=== PATIENT | female | born 1980 | race Caucasian/White ===

== ENCOUNTER 2024-12-24 11:48 | Outpatient (REF) | payer MEDICAID, SELFPAY ==
--- OUTSIDE RECORDS SUMMARY | 2024-12-24 19:46 | XMS_ITS | Encounter Summary ---
Author Organization [employer] [facility] Address [address] [facility] 7t [place] [address] Care Team Providers Care Hospitality Team Member Name Role Phone Unavailable Primary Care Provider Unavailabl e Reason for Visit * Reason Onset Date Comments NEW PATIENT APPT REQUEST 12/18/2024 Encounter Details Date Type Department Care Team (Late st Contact Info) Description 12/18/2024 Telephone [facility] [address] [place] [address] Name, MD Spencer [address] [place] [address] NEW PATIENT APPT REQUEST Social History Tobacco Use Types Packs/Day Years Used Date Smoking Tobacco: Never Passive Smoke Exposure: Never Smokeless Tobacco: Never Alcohol Use Standard Drinks/Week Comments Never 0 (1 standard drink = 0.6 oz pur e alcohol) Comments Unknown Sex and Gender Information Value Date Recorded Sex Assigned at Female 10/30/2024 10:58 AM EST Legal Sex Female 3:06 PM EST Gender Identity Female 10/30/2024 10:58 AM EST Sexual Orientation Straight 10/30/2024 10 :58 AM EST documented as of this encounter Miscellaneous Notes * Telephone Encounter - Myriam Price RN - 12/18/2024 9:35 AM EST New patient appt needed per Dr Name. See OV note 12/15/24. documented in this encounter Plan of Treatment Upcoming Encounters Date Type Department Care Team (Late st Contact Info) Description 01/05/2025 10:00 AM EDT Office Visit [facility] [address] [place] [address] Tavia Mullins DDS [address] [place] [address] documented as of this encounter Visit Diagnoses Not on filedocumented in this encounter
--- OUTSIDE RECORDS SUMMARY | 2024-12-24 19:46 | XMS_ITS | Encounter Summary ---
Author Organization [employer] [facility] Address [address] [facility] 7t [place] [address] Care Team Providers Care Rivet Sorter Name Role Phone Unavailable Primary Care Provider Unavailabl e Reason for Visit * Reason Comments Post and core and crown prep on tooth#7 Encounter Details Date Type Department Care Team (Late st Contact Info) Description 12/21/2024 9:00 AM EST Office Visit [facility] [address] [place] [address] Tavia Mullins DDS [address] [place] [address] Fractured endodontic instrument in root canal (Primary Dx); Full coverage crown needed for tooth at risk for fracture Social History Tobacco Use Types Packs/Day Years [...] AM EST documented as of this encounter Last Filed Vital Signs Vital Sign Reading Time Taken Comments Blood Pressure 110/78 12/21/2024 8:58 AM EST Pulse - - Temperature - - Respiratory Rate - - Oxygen Saturation - - Inhaled Oxygen Concentration - - Weight - - Height - - Body Mass Index - - documented in this encounter Progress Notes * Tavia Mullins DDS - 12/21/2024 9:00 AM EST Patient ID: Hailey Mayer is a 44 y.o. female. Time Out: Timeout Date: 12/21/24, Timeout Time: 0859 (Time out for post and core and crown prep on tooth #7) Location: [facility] Tooth: #7 Procedure: [place] and Post & Core Verified the above with patient, assistant front end manager, and provider. Confirmed via patient's chart, intraorally and by radiographs. Steamer Gum Candy: not applicable Chief Complaint Patient presents with Post and core and crown prep on tooth#7 Medical Hx: Vitals: Blood pressure 110/78. Medications, Med Hx reviewed with patient and updated in chart. Consent Obtained: The risks, benefits, indications, potential complications, and alternatives were explained to the patient and informed consent was obtained with good understanding. Treatment Provided: Dental procedures in this visit D2954 - PREFABRICATED POST AND CORE IN ADDITION TO CROWN 7 (Completed) Service provider: Tavia Mullins DDS Billing provider: Tavia Mullins DDS D2700.1 - CROWN PREP (Completed) Service provider: Tavia Mullins DDS Billing provider: Tavia Mullins DDS [id number] - INTRAORAL - PERIAPICAL FIRST RADIOGRAPHIC IMAGE (Completed) Service provider: Tavia Mullins DDS Billing provider: Tavia Mullins DDS [id number] - CASE PRESENTATION, DETAILED AND EXTENSIVE TREATMENT PLANNING (Completed) Service provider: Tavia Mullins DDS Billing provider: Tavia Mullins DDS Topical: 20% Benzocaine Anesthesia: 2% Lidocaine (Xylocaine) w/ 1:100,000 epinephrine Number of Cartridges: 1 Injection Type: Buccal infiltration, Palatal infiltration, Anterior superior alveolar nerve block, and Nasopalatine nerve block Confirmed profound anesthesia. Isolation: high speed suction and cotton rolls Temporary sabianist removed. Canal length: mm Ambrosio-percha removed using High Austin Peeso reamer used size: 0-yellow Post type used: Flexipost Post size used: 0-yellow PA taken to confirm post size and length. Irrigation: Chlorhexidine Post space dried using paper points. Etch: 37% Phosphoric Acid Etch Boss: I-Boss Post cemented with: Relyx Unicem Core: Filtek [place] Flowable Composite PA taken to confirm fit. Occlusion checked with articulating paper and adjustments made as needed. Core smoothed and polished. Stay[place] Preparation: Prepared tooth for: Ceramic crown Gingival Retraction: Traxodent and Retraction cap Final Impression taken with: Paradigm Heavy [employer] Light Body Bite Registration taken with: Charu VPS Provisional fabricated with: Paradigm Temp Material and cemented with: TempBond Shade: A3 Lab used: [facility] Due Date: 01/04/2025 POI given to patient with instructions for homecare, to avoid sticky or crunchy foods, and to call if temp crown becomes dislodged. All questions answered. Patient tolerated procedure well, and was discharged alert, oriented, and in stable condition. NV: Stay[place] Interior Assemblies Installer: Minna Livingston Dentist: Tavia Mullins DDS documented in this encounter Plan of Treatment Upcoming Encounters Date Type Department Care Team (Late st Contact Info) Description 01/05/2025 10:00 AM EDT Office Visit [facility] [address] [place] [address] Tavia Mullins DDS [address] [place], [place] [phone] Scheduled Orders Name Type Priority Associated Diagnoses Orde r Schedule DENTAL LAB FIXED Dental Routine Ordered: 12/21/2024 documented as of this encounter Procedures Procedure Name Priority Date/Time Associated Diagnosis Comments CROWN PREP Routine 12/21/2024 9:00 AM EST Fractured endodontic instrument in root canal Full coverage crown needed for tooth at risk for fracture 7 PREFABRICATED POST AND CORE IN ADDITION TO CROWN Routine 12/21/2024 9:00 AM EST Fractured endodontic instrument in root canal Full coverage crown needed for tooth at risk for fracture INTRAORAL - PERIAPICAL FIRST RADIOGRAPHIC IMAGE Routine 12/21/2024 9:00 AM EST Fractured endodontic instrument in root canal Full coverage crown needed for tooth at risk for fracture CASE PRESENTATION, DETAILED AND EXTENSIVE TREATMENT PLANNING Routine 12/21/2024 9:00 AM EST Fractured endodontic instrument in root canal Full coverage crown needed for tooth at risk for fracture documented in this encounter Visit Diagnoses Diagnosis Fractured endodontic instrument in root canal- Primary Full coverage crown needed for tooth at risk for fracture documented in this encounter
--- OUTSIDE RECORDS SUMMARY | 2024-12-24 19:47 | XMS_ITS | Encounter Summary ---
Author Organization [employer] Address [address] [facility] 7t [place] [address] Care Team Providers Care Stippler Name Role Phone Unavailable Primary Care Provider Unavailabl e Reason for Visit * Reason Comments Headache Encounter Details Date Type Department Care Team (Late st Contact Info) Description 12/15/2024 4:00 PM EST Office Visit [facility] [address] [place] [address] NameSpencer MD [address] [place] [address] Migraine without status migrainosus, not intractable, unspecified migraine type (Primary Dx) Social History Tobacco Use Types Packs/Day Years [...] Sign Reading Time Taken Comments Blood Pressure 144/86 12/15/2024 4:10 PM EST Pulse 81 12/15/2024 4:10 PM EST Temperature 36.8 ??C (98.2 ??F) 12/15/2024 4:10 PM ES T Respiratory Rate 16 12/15/2024 4:10 PM EST Oxygen Saturation 98% 12/15/2024 4:10 PM EST Inhaled Oxygen Concentration - - Weight 71.2 kg (157 lb) 12/15/2024 4:10 PM EST Height - - Body Mass Index - - documented in this encounter Progress Notes * Spencer Barr MD - 12/15/2024 4:00 PM EST Subjective Patient ID: Hailey Mayer is a 44 y.o. female who presents for Headache. Patient comes for the first time to the clinic. The patient tells me she is having headaches for atleast 5 months. The patient tells me her headaches are sometimes severe but she does not have a headache during her visit. She describes that she has associated photophobia, nausea, visual scotomas, i ncreased tension in the muscles of the posterior neck, left arm paresthesias with her headaches. The patient has significant improvement with the use of [id number] Advil when she is having a headache. She does not recall any premonitory symptoms prior to her headaches. She does not know of any family history of migraines. She does not recall any particular food triggering her migraines. Shespecifically denies the drinking of wine or eating chocolate prior to the headaches. She has been under a lot of stress and she is not sleeping well. She is not allergic to any meds for NSAIDs have been causing her heartburn. Review of Systems Constitutional: Negative for chills and fever. HENT: Negative for sore throat. Respiratory: Negative for cough, shortness of breath and wheezing. Cardiovascular: Negative for chest pain, palpitations and leg swelling. Gastrointestinal: Negative for abdominal pain. Neurological: Positive for headaches. Visit Vitals BP (!) 144/86 (BP Location: Right arm, Patient Position: Sitting, BP Cuff Size: Adult) Pulse 81 Temp 98.2 ??F (36.8 ??C) (Temporal) Resp 16 Wt 157 lb (71.2 kg) SpO2 98% Smoking Status Never Objective Physical Exam Constitutional: Appearance: Normal appearance. Cardiovascular: Rate and Rhythm: Normal rate and regular rhythm. Heart sounds: No murmur heard. No gallop. Pulmonary: Effort: Pulmonary effort is normal. No respiratory distress. Breath sounds: Normal breath sounds. No wheezing. Musculoskeletal: Right lower leg: No edema. Left lower leg: No edema. Neurological: General: No focal deficit present. Mental Status: She is alert and oriented to person, place, and time. Sensory: No sensory deficit. Motor: No weakness. Assessment/Plan Diagnoses and all orders for this visit: Migraine without status migrainosus, not intractable, unspecified migraine type Comments: Patient history is consistent with migraine headaches. Physical examination is unremarkable. I recommended amitriptyline at bedtime for migraine prevention. Imitrex plus acetaminophen at the onset ofthe headaches. I suggested to use acetaminophen instead of NSAIDs because of her complaint of heartburn. I recommended a course of famotidine for heartburn. I will put her on recall for new patient visit. Other orders - amitriptyline (Elavil) 10 MG tablet; Take 1 tablet (10 mg) by mouth at bedtime. - SUMAtriptan (Imitrex) 25 MG tablet; Take 1 tablet (25 mg) by mouth 1 (one) time if needed for migraine. May repeat dose once in 2 hours if no relief. Do not exceed 2 doses in 24 hours. - acetaminophen (Tylenol Extra Strength) 500 MG tablet; Take 1 tablet (500 mg) by mouth every 8 (eight) hours if needed for headaches. - famotidine (Pepcid) 20 MG tablet; Take 1 tablet (20 mg) by mouth 2 times daily. * Rosalia Tejeda RN - 12/15/2024 4:00 PM EST Noted. Pt on a recall for New Patient appointment with [facility] Melissa for February 2025 as there are no current new patient appointments available with Yanira. documented in this encounter Plan of Treatment Upcoming Encounters Date Type Department Care Team (Late st Contact Info) Description 01/05/2025 10:00 AM EDT Office Visit [facility] [address] [place] [address] Vazquez-Royal, Tavia, DDS [address] [place] [address] documented as of this encounter Visit Diagnoses Diagnosis Migraine without status migrainosus, not intractable, unspecified migraine type- Primary documented in this encounter
--- OUTSIDE RECORDS SUMMARY | 2024-12-24 19:47 | XMS_ITS | Encounter Summary ---
Author Organization [employer] Address [address] [facility] 7t [place] [address] Care Team Providers Care Saw Grinder Name Role Phone Unavailable Primary Care Provider Unavailabl e Reason for Visit * Reason Comments Female Dysuria Constipation Encounter Details Date Type Department Care Team (Late st Contact Info) Description 12/24/2024 11:20 AM EST Office Visit [facility] [address] [place], [place] [phone] Minna Parmar DO [address] [place], [place] [phone] Acute UTI (Primary Dx); Constipation, unspecified constipation type Social History Tobacco Use Types Packs/Day Years [...] Sign Reading Time Taken Comments Blood Pressure 120/80 12/24/2024 11:30 AM EST Pulse 84 12/24/2024 11:30 AM EST Temperature 36.5 ??C (97.7 ??F) 12/24/2024 11:[address] Respiratory Rate 18 12/24/2024 11:30 AM EST Oxygen Saturation - - Inhaled Oxygen Concentration - - Weight 71.7 kg (158 lb 2 oz) 12/24/2024 11:30 AM EST Height 161 cm (5' 3.39 ) 12/24/2024 11:30 AM EST Body Mass Index 27.67 12/24/2024 11:30 AM EST documented in this encounter Progress Notes * Minna Parmar, DO - 12/24/2024 11:20 AM EST SUBJECTIVE Hailey Mayer is a 44 y.o. female who presents for Sick Visit. She presents to [place] today with multiple complaints. She c/o constipation. She says she has BM every day, but the stool is very small. She says that stool is very hard and she has straining with every bowel movement. No diarrhea. She denies any rectal pain or BRBPR/black stools. She has not tried any OTC meds. She has never had colonoscopy. She has no family h/o colon cancer. She also thinks she has a UTI. She has burning with urination and urgency and voiding small amounts. She says she has not had PCP in a long time. She moved from [place] a couple mos ago. She was seen in [place] last week for different concerns and is awaiting [employer] appt with new PCP. History provided by: Patient retail attendant used: Yes Constipation Severity: Moderate Timing: Constant Chronicity: Chronic Stool description: Formed, hard and small Associated symptoms: abdominal pain and dysuria Associated symptoms: no diarrhea, no fever, no nausea and no vomiting UTI Duration: 5 days Timing: Constant Progression: Worsening Chronicity: New Associated symptoms: abdominal pain Associated symptoms: no chest pain, no cough, no diarrhea, no fever, no headaches, no nausea, no shortness of breath and no vomiting Review of Systems Constitutional: Negative for chills and fever. Respiratory: Negative for cough and shortness of breath. Cardiovascular: Negative for chest pain, palpitations and leg swelling. Gastrointestinal: Positive for abdominal pain and constipation. Negative for diarrhea, nausea and vomiting. Genitourinary: Positive for dysuria, frequency and urgency. Negative for difficulty urinating, hematuria and vaginal discharge. Neurological: Negative for weakness and headaches. Patient Active Problem List Diagnosis Secondary dental caries Encounter for dental examination No Known Allergies OBJECTIVE Visit Vitals BP 120/80 (BP Location: Right arm, Patient Position: Sitting, BP Cuff Size: Adult) Pulse 84 Temp 97.7 ??F (36.5 ??C) (Oral) Resp 18 Ht 5' 3.39 (1.61 m) Wt 158 lb 2 oz (71.7 kg) LMP 12/12/2024 (Approximate) BMI 27.67 kg/m?? Smoking Status Never BSA 1.79 m?? Physical Exam Constitutional: General: She is not in acute distress. Appearance: Normal appearance. Cardiovascular: Rate and Rhythm: Normal rate and regular rhythm. Heart sounds: Normal heart sounds. No murmur heard. Pulmonary: Effort: Pulmonary effort is normal. Breath sounds: Normal breath sounds. No wheezing or rhonchi. Abdominal: General: Bowel sounds are normal. Palpations: Abdomen is soft. Tenderness: There is abdominal tenderness in the suprapubic area. There is no right CVA tenderness or left CVA tenderness. Neurological: General: No focal deficit present. Mental Status: She is alert and oriented to person, place, and time. Cranial Nerves: No cranial nerve deficit. Motor: No weakness. Gait: Gait normal. Psychiatric: Mood and Affect: Mood normal. Office Visit on 12/24/2024 Component Date Value Ref Range Status Color, UA 12/24/2024 Light Yellow Final Clarity, UA 12/24/2024 Clear Final Glucose, UA 12/24/2024 Negative Final Bilirubin, UA 12/24/2024 Negative Final Ketones, UA 12/24/2024 Negative Final Spec Grav, UA 12/24/2024 1.025 Final Blood, UA 12/24/2024 Positive (A) Negative, None Detected Final Trace-Intact pH, UA 12/24/2024 6.0 Final Protein, UA 12/24/2024 Negative Final Urobilinogen, UA 12/24/2024 0.2 Final Leukocytes, UA 12/24/2024 Negative Negative, Rare, Trace Final Nitrite, UA 12/24/2024 Negative Negative, None Detected Final Appearance, UA 12/24/2024 clear Final QC Media Lot # 12/24/2024 [id number] Final Lot# Expiration Date 12/24/2024 11,302,025 Final Assessment/Plan Diagnoses and all orders for this visit: Acute UTI -treat empirically with bactrim -send Ucx for sensitivities -advised contact [facility] if sx do not resolve Constipation, unspecified constipation type -provided reassurance -start colace BID -start fiber supplementation BID -advised miralax clean-out, then use prn -advised increase fruits, vegetables, fiber, and water intake -advised contact [facility] if no improvement , she agrees with plans --Follow-up with new PCP as scheduled or sooner prn-- Current Outpatient Medications: acetaminophen (Tylenol Extra Strength) 500 MG tablet, Take 1 tablet (500 mg) by mouth every 8 (eight) hours if needed for headaches., Disp: 90 tablet, Rfl: 0 amitriptyline (Elavil) 10 MG tablet, Take 1 tablet (10 mg) by mouth at bedtime., Disp: 30 tablet, Rfl: 2 docusate sodium (Colace) 100 MG capsule, Take 1 capsule (100 mg) by mouth 2 times daily., Disp: 180capsule, Rfl: 1 famotidine (Pepcid) 20 MG tablet, Take 1 tablet (20 mg) by mouth 2 times daily., Disp: 60 tablet, Rfl: 11 ibuprofen 600 MG tablet, Take 1 tablet (600 mg) by mouth every 6 (six) hours if needed for mild pain for up to 20 doses., Disp: 20 tablet, Rfl: 0 polycarbophil (Fibercon) 625 MG tablet, Take 1 tablet (625 mg) by mouth 2 times daily., Disp: 180 tablet, Rfl: 1 polyethylene glycol, PEG, 3350 (MiraLax) 17 GM/SCOOP powder, Take 17 g by mouth if needed each day (constipation) for up to 3 days., Disp: 527 g, Rfl: 2 sulfamethoxazole-trimethoprim (Bactrim DS) 800-160 MG tablet, Take 1 tablet by mouth 2 times daily for 3 days., Disp: 6 tablet, Rfl: 0 SUMAtriptan (Imitrex) 25 MG tablet, Take 1 tablet (25 mg) by mouth 1 (one) time if needed for migraine. May repeat dose once in 2 hours if no relief. Do not exceed 2 doses in 24 hours., Disp: 9 tablet, Rfl: 3 Scribe Attestation: Keron Joshua, am serving as a scribe to document services personally performed by Minna Mills, based on the patient's response to questions by provider and provider's statements to me. 12/24/24 12:07 PM Physicians Attestation: Minna Joshua DO, have reviewed the information by the scribe, Keron Bailey, for accuracy and agree with its content. documented in this encounter Plan of Treatment Upcoming Encounters Date Type Department Care Team (Late st Contact Info) Description 01/05/2025 10:00 AM EDT Office Visit [facility] [address] [place] [address] Vazquez-Royal, Tavia, DDS [address] [place] [address] Scheduled Orders Name Type Priority Associated Diagnoses Orde r Schedule Culture, Urine, Routine Microbiology Routine Acute UTI Ordered: 12/24/2024 documented as of this encounter Procedures Procedure Name Priority Date/Time Associated Diagnosis Comments POCT URINALYSIS DIPSTICK Routine 12/24/2024 11:47 AM EST Acute UTI documented in this encounter Results * (ABNORMAL) POCT Urinalysis (12/24/2024 11:47 AM EST) Color, UA Light Yellow Clarity, UA Clear Glucose, UA Negative Bilirubin, UA Negative Ketones, UA Negative Spec Grav, UA 1.025 Blood, UA Positive(A) Negative, None Detected Comment:Trace-Intact pH, UA 6.0 Protein, UA Negative Urobilinogen, UA 0.2 Leukocytes, UA Negative Negative, Rare, Trace Nitrite, UA Negative Negative, None Detected Appearance, UA clear QC Media Lot # [id number] Lot# Expiration Date Urine 12/24/2024 11:4 7 AM EST Minna Parmar DO POINT OF CARE TEST ENTER/SANAZ T ORDERABLES Final Result documented in this encounter Visit Diagnoses Diagnosis Acute UTI- Primary Urinary tract infection, site not specified Constipation, unspecified constipation type documented in this encounter
--- OUTSIDE RECORDS SUMMARY | 2024-12-24 19:47 | XMS_ITS | Encounter Summary ---
Author Organization [employer] Address [address] [facility] 7t [place] [address] Care Team Providers Care Head Of Advertising Name Role Phone Unavailable Primary Care Provider Unavailabl e Reason for Visit * Reason Onset Date Comments Nurse Triage 12/15/2024 Encounter Details Date Type Department Care Team (Late st Contact Info) Description 12/15/2024 Telephone [facility] [place] [address] [place] [address] Name, MD Spencer [address] [place] [address] Nurse Triage Social History Tobacco Use Types Packs/Day Years [...] Telephone Encounter - Myriam Price RN - 12/15/2024 4:14 PM EST Images from the original note were not included. Assessment: Patient presents to [facility] c/o episodes of headaches with left arm and foot numbness and occasional blurry vision. Current episode present since yesterday. Patient denies blurry vision, balance trouble, unilateral extremity weakness, speech changes, chest pain, nausea, vomiting at this time. Patient is well appearing, walking and talking WNL. Patient is taking (treatment/meds) Advil with relief. Recent ED visit or hospitalization: No. Patient is a new Patient, arrived from [place] on 10/24/24. VS as follows (if applicable): 12/15/2024 4:10 PM Vitals Systolic 144 Diastolic 86 Heart Rate 81 Temp 98.2 ??F (36.8 ??C) Resp 16 Weight (lb) 157 Visit Report Report No Known Allergies Current Outpatient Medications Medication Sig Dispense Refill ibuprofen 600 MG tablet Take 1 tablet (600 mg) by mouth every 6 (six) hours if needed for mild painfor up to 20 doses. 20 tablet 0 No current facility-administered medications for this visit. Patient Active Problem List Diagnosis Date Noted Secondary dental caries 10/30/2024 Encounter for dental examination 10/30/2024 Plan of care: Report to Name Patient in exam room A awaiting Provider Evaluation. Myriam Price RN documented in this encounter Plan of Treatment Upcoming Encounters Date Type Department Care Team (Late st Contact Info) Description 01/05/2025 10:00 AM EDT Office Visit [facility] [address] [place] [address] Tavia Mullins DDS [address] [place] [address] documented as of this encounter Visit Diagnoses Not on filedocumented in this encounter
--- OUTSIDE RECORDS SUMMARY | 2024-12-24 19:47 | XMS_ITS | Clinical Summary ---
Author Organization [employer] Address [address] [facility] [address] [place] [address] Care Team Providers Care Sole Buffer Name Role Phone Unavailable Primary Care Provider Unavailabl e Allergies No known active allergies Medications ibuprofen 600 MG tabletIndication s:Secondary dental caries,Encounter for dental examination Take 1 tablet (600 mg) by mouth every 6 (six) hours if needed for mild pain for up to 20 doses. 20 tablet 5 Active amitriptyline (Elavil) 10 MG tablet Take 1 tablet (10 mg) by mouth at bedtime. 30 tablet 2 5 03/15/20 25 Active SUMAtriptan (Imitrex) 25 MG tablet Take 1 tablet (25 mg) by mouth 1 (one) time if needed for migraine. May repeat dose once in 2 hours if no relief. Do not exceed 2 doses in 24 hours. 9 tablet 3 5 12/15/19 26 Active acetaminophen (Tylenol Extra Strength) 500 MG tablet Take 1 tablet (500 mg) by mouth every 8 (eight) hours if needed for headaches. 90 tablet 5 01/15/20 25 Active famotidine (Pepcid) 20 MG tablet Take 1 tablet (20 mg) by mouth 2 times daily. 60 tablet 11 5 12/15/19 26 Active docusate sodium (Colace) 100 MG capsule Take 1 capsule (100 mg) by mouth 2 times daily. 180 capsule 1 5 12/25/19 26 Active polycarbophil (Fibercon) 625 MG tablet Take 1 tablet (625 mg) by mouth 2 times daily. 180 tablet 1 5 12/25/19 26 Active polyethylene glycol, PEG, 3350 (MiraLax) 17 GM/SCOOP powder Take 17 g by mouth if needed each day (constipatio n) for up to 3 days. 527 g 2 5 12/28/19 25 Active sulfamethoxazole -trimethoprim (Bactrim DS) 800-160 MG tablet Take 1 tablet by mouth 2 times daily for 3 days. 6 tablet 5 12/28/19 25 Active ibuprofen 800 MG tablet Take 1 tablet (800 mg) by mouth every 8 (eight) hours if needed for mild pain for up to 10 days. 15 tablet 5 11/29/19 25 amoxicillin (Amoxil) 500 MG capsule Take 1 capsule (500 mg) by mouth every 8 (eight) hours for 7 days. 21 capsule 5 11/26/19 25 Active Problems Problem Noted Date Diagnosed Date Secondary dental caries 10/30/2024 Encounter for dental examination 10/30/2024 Encounters Date Type Department Care Team Description 12/24/2024 11:20 AM EST Office Visit [facility] [address] [id number] Minna Parmar DO Acute UTI (Primary Dx); Constipation, unspecified constipation type 12/21/2024 9:00 AM EST Office Visit [facility] [address] [place] [phone] Tavia Mullins DDS Fractured endodontic instrument in root canal (Primary Dx); Full coverage crown needed for tooth at risk for fracture 12/18/2024 Telephone [facility] [address] [address] Spencer Barr MD NEW PATIENT APPT REQUEST 12/15/2024 4:00 PM EST [facility] [address] [address] Spencer Barr MD Migraine without status migrainosus, not intractable, unspecified migraine type (Primary Dx) 12/15/2024 Telephone [facility] [address] [address] Spencer Barr MD Nurse Triage 11/19/2024 10:00 AM EST Office Visit [facility] [address] [place] [id number] Vazquez-Royal, Tavia, DDS Fractured endodontic instrument in root canal (Primary Dx); Dental caries 10/30/2024 11:30 AM EST Office Visit [facility] [address] [place] [address] Salvador Gayle DDS Secondary dental caries (Primary Dx); Encounter for dental examination from Last 3 Months Social History Tobacco Use Types Packs/Day Years Used Date Smoking Tobacco: Never Passive Smoke Exposure: Never Smokeless Tobacco: Never Tobacco Cessation:Counseling Given: No Alcohol Use Standard Drinks/Week Comments Never 0 (1 standard drink = 0.6 oz pur e alcohol) Comments Unknown Sex and Gender Information Value Date Recorded Sex Assigned at Female 10/30/2024 10:58 AM EST Legal Sex Female 3:06 PM EST Gender Identity Female 10/30/2024 10:58 AM EST Sexual Orientation Straight 10/30/2024 10 :58 AM EST Last Filed Vital Signs Vital Sign Reading Time Taken Comments Blood Pressure 120/80 12/24/2024 11:30 AM EST Pulse 84 12/24/2024 11:30 AM EST Temperature 36.5 ??C (97.7 ??F) 12/24/2024 11:[address] Respiratory Rate 18 12/24/2024 11:30 AM EST Oxygen Saturation 98% 12/15/2024 4:10 PM EST Inhaled Oxygen Concentration - - Weight 71.7 kg (158 lb 2 oz) 12/24/2024 11:30 AM EST Height 161 cm (5' 3.39 ) 12/24/2024 11:30 AM EST Body Mass Index 27.67 12/24/2024 11:30 AM EST Plan of Treatment Upcoming Encounters Date Type Department Care Team (Late st Contact Info) Description 01/05/2025 10:00 AM EDT Office Visit [facility] [address] [place] [address] Tavia Mullins DDS [address] [place] [address] Health Maintenance Due Date Last Done Comments Dental Oral Exam 1981 Dental Prophylaxis 1981 Dental X-Ray: Bitewings 1981 Dental X-Ray: Full Mouth 1981 Depression Screening 1981 HIV Screening 1981 SDOH Screening 1981 Alcohol/Substance Use Screening 1993 Family Planning (PISQ) 1996 Hepatitis C Screening 1999 DTaP/Tdap/Td Vaccines (1 - Tdap) 2000 Hepatitis B Vaccines (1 of 3 - 19+ 3-dose series) 2000 Pap Smear 2002 Cervical Cancer Screening 2011 HPV/Cotest 2011 Mammogram 2021 COVID-19 Vaccine (1 - 2023-2 5 season) 2024 Influenza Vaccine (#1) 2024 Tobacco Screening 12/24/2025 12/24/2024 Zoster Vaccines (1 of 2) 2031 RSV Patients and Pa tients Aged 60 years or older (1 - 1-dose 75+ series) 2056 HIB Vaccines Aged Out No longer eligi ble based on patient's age to complete this topic HPV Vaccines Aged Out No longer eligi ble based on patient's age to complete this topic Hepatitis A Vaccines Aged Out No long er eligible based on patient's age to complete this topic IPV Vaccines Aged Out No longer eligi ble based on patient's age to complete this topic Meningococcal Vaccine Aged Out No deana ulices eligible based on patient's age to complete this topic Pneumococcal Vaccine: Pediat rics (0 to 5 Years) and At-Risk Patients (6 to 49) Years) Aged Out No longer elig ible based on patient's age to complete this topic RSV under 20 months Aged Out No longe r eligible based on patient's age to complete this topic Rotavirus Vaccines Aged Out No longer eligible based on patient's age to complete this topic Procedures Procedure Name Priority Date/Time Associated Diagnosis Comments POCT URINALYSIS DIPSTICK Routine 12/24/2024 11:47 AM EST Acute UTI CASE PRESENTATION, DETAILED AND EXTENSIVE TREATMENT PLANNING Routine 12/21/2024 9:00 AM EST Fractured endodontic instrument in root canal Full coverage crown needed for tooth at risk for fracture INTRAORAL - PERIAPICAL FIRST RADIOGRAPHIC IMAGE Routine 12/21/2024 9:00 AM EST Fractured endodontic instrument in root canal Full coverage crown needed for tooth at risk for fracture CROWN PREP Routine 12/21/2024 9:00 AM EST Fractured endodontic instrument in root canal Full coverage crown needed for tooth at risk for fracture 7 PREFABRICATED POST AND CORE IN ADDITION TO CROWN Routine 12/21/2024 9:00 AM EST Fractured endodontic instrument in root canal Full coverage crown needed for tooth at risk for fracture CASE PRESENTATION, DETAILED AND EXTENSIVE TREATMENT PLANNING Routine 11/19/2024 10:00 AM EST Fractured endodontic instrument in root canal Dental caries 7 ENDODONTIC THERAPY, ANTERIOR TOOTH Routine 11/19/2024 10:00 AM EST Fractured endodontic instrument in root canal Dental caries 8 PREFABRICATED POST AND CORE IN ADDITION TO CROWN Routine 11/19/2024 12:00 AM EST PALLIATIVE (EMERGENCY) TREATMENT OF DENTAL PAIN - MINOR PROCEDURE Routine 10/30/2024 11:30 AM EST INTRAORAL - PERIAPICAL FIRST RADIOGRAPHIC IMAGE Routine 10/30/2024 11:30 AM EST CASE PRESENTATION, DETAILED AND EXTENSIVE TREATMENT PLANNING Routine 10/30/2024 11:30 AM EST 8 ROOT CANAL Routine 10/30/2024 12:00 AM EST 8 PREFABRICATED POST AND CORE IN ADDITION TO CROWN Routine 10/30/2024 12:00 AM EST 8 I COMPOSITE FILLING Routine 10/30/2024 12:00 AM EST 8 M COMPOSITE FILLING Routine 10/30/2024 12:00 AM EST 8 D COMPOSITE FILLING Routine 10/30/2024 12:00 AM EST 7 M COMPOSITE FILLING Routine 10/30/2024 12:00 AM EST 7 D COMPOSITE FILLING Routine 10/30/2024 12:00 AM EST from Last 3 Months Results * (ABNORMAL) POCT Urinalysis (12/24/2024 11:47 [...] Urine 12/24/2024 11:4 7 AM EST Minna Agata DO POINT OF CARE TEST ENTER/SANAZ T ORDERABLES Final Result from Last 3 Months Insurance [place] [facility] MEDICAID STAND [facility]
== END 2024-12-24 11:49 | disposition home or self-care (01) ==
LOC: HO.LNP 11:48
PROVIDERS: Visit Provider Family Medicine
DX: R30.0 Dysuria (principal)
CPT/HCPCS: 87086

== ENCOUNTER 2025-03-17 15:45 | Outpatient (REF) | payer MEDICAID, SELFPAY ==
--- OUTSIDE RECORDS SUMMARY | 2025-03-17 16:08 | XMS_ITS | Encounter Summary ---
Author Organization [employer] Address [address] [facility] [address] [place] [address] Care Team Providers Care Creative Recruiter Name Role Phone Yanira Melissa Primary Care Provider [phone] Encounter Details Date Type Department Care Team (Late st Contact Info) Description 03/17/2025 2:45 PM EDT Office Visit [facility] [address] [place], [place] [phone] Yanira Melissa FNP [address] [place] [address] Adult wellness visit (Primary Dx); Dietary counseling; Exercise counseling Social History Tobacco Use Types Packs/Day Years Used Date Smoking Tobacco: Never Passive Smoke Exposure: Never Smokeless Tobacco: Never Alcohol Use Standard Drinks/Week Comments Never 0 (1 standard drink = 0.6 oz pur e alcohol) Housing Stability Answer Date Recorded What is your housing situation today? I have anel ortiz 03/09/[address] you li ve. Do you have problems with any of the following? None of the above 03/09/2025 Food Insecurity Answer Date Recorded Within the past 12 months, y ou worried that your food would run out before you got money to buy more: Never True 03/09/2025 Within the past 12 months,th e food you bought just didn't last and you didn't have enough money to get more: Never True Transportation Answer Date Recorded In the past 12 months, has l ack of transportation kept you from medical appts, meetings, work or from getting things needed for daily living? No 03/09/2025 Utilities Answer Date Recorded In the past 12 months, has t he electric, gas, oil or water company threatened to shut off services in your home? No 03/09/2025 Internet Access Answer Date Recorded Internet Access Q1 Yes 03/09/2025 Internet Access Q2 Not on file 03/09/2025 Comments Unknown Sex and Gender Information Value Date Recorded Sex Assigned at Female 10/30/2024 10:58 AM EST Legal Sex Female 3:06 PM EST Gender Identity Female 10/30/2024 10:58 AM EST Sexual Orientation Straight 10/30/2024 10 :58 AM EST documented as of this encounter Last Filed Vital Signs Vital Sign Reading Time Taken Comments Blood Pressure 138/88 03/17/2025 2:39 PM EDT Pulse 84 03/17/2025 2:39 PM EDT Temperature 37 ??C (98.6 ??F) 03/17/2025 2:39 PM EDT Respiratory Rate 18 03/17/2025 2:39 PM EDT Oxygen Saturation - - Inhaled Oxygen Concentration - - Weight 71.7 kg (158 lb 2 oz) 03/17/2025 2:39 PM EDT Height 163.5 cm (5' 4.37 ) 03/17/2025 2:39 PM ED T Body Mass Index 26.83 03/17/2025 2:39 PM EDT documented in this encounter Functional Status * Trouble falling or staying asleep, or sleeping too much Answer Date of Assessment Author Nearly every day 03/17/2025 3:14 PM EDT Concetta Saunders [place], [place] * Feeling tired or having little energy Answer Date of Assessment Author Several days 03/17/2025 3:14 PM EDT Concetta Toledo [place] * Poor appetite or overeating Answer Date of Assessment Author Several days 03/17/2025 3:14 PM EDT Concetta Toledo [place] * Feeling bad about yourself - or that you are a failure or have let yourself or your family down Answer Date of Assessment Author Not at all 03/17/2025 3:14 PM EDT Concetta Toledo [place] * Trouble concentrating on things, such as reading the newspaper or watching television Answer Date of Assessment Author Several days 03/17/2025 3:14 PM EDT Concetta Toledo [place] * Moving or speaking so slowly that other people could have noticed? Or the opposite - being so fidgety or restless that you have been moving around a lot more than usual. Answer Date of Assessment Author Not at all 03/17/2025 3:14 PM EDT Concetta Toledo [place] * Thoughts that you would be better off or hurting yourself in some way Answer Date of Assessment Author Not at all 03/17/2025 3:14 PM EDT Concetta Toledo [place] * Over the last 2 weeks, how often have you been bothered by any of the following problems? Question Answer Date of Assessment Author Feeling nervous, anxious, or on edge 1 03/17/2025 3:15 PM EDT Concetta Mendez [place] Not being able to stop or control worrying 3 03/17/2025 3:15 PM EDT Concetta Mendez [place] Worrying too much about different things 3 03/17/2025 3:15 PM EDT Concetta Mendez [place] Trouble relaxing 1 03/17/2025 3:15 PM EDT Concetta Santos [place] Being so restless that it is hard to sit still 0 03/17/2025 3:15 PM EDT Concetta Mendez MA Becoming easily annoyed or irritable 1 03/17/2025 3:15 PM EDT Concetta Mendez [place] Feeling afraid as if somethi ng awful might happen 1 03/17/2025 3:15 PM EDT Concetta Mendez MA ANDRES-7 Total Score 10 03/17/2025 3:15 PM EDT Concetta Mendez [place] documented as of this encounter Plan of Treatment Upcoming Encounters Date Type Department Care Team (Late st Contact Info) Description 04/06/2025 8:00 AM EDT Office Visit [facility] [address] [place] [address] Tavia Mullins DDS [address] [place] [address] 04/07/2025 10:45 AM EDT Procedure Visit [facility] [address] [place], [place] [phone] Yanira Melissa FNP [address] [place], [place] [phone] 07/29/2025 8:00 AM EDT Office Visit [facility] [address] [place], [place] [phone] Maritza Givens Scheduled Orders Name Type Priority Associated Diagnoses Orde r Schedule Chlamydia/N. Gonorrhoeae RNA, TMA, Urine Microbiology Routine Adult wellness visit Expected: 03/17/2025 (Approximate), Expires: 03/16/2026 Hepatitis B Core Antibody, Total Lab Routine Adult wellness visit Expected: 03/17/2025 (Approximate), Expires: 03/16/2026 Hepatitis B Surface Antibody, Qualitative Lab Routine Adult wellness visit Expected: 03/17/2025 (Approximate), Expires: 03/16/2026 Hepatitis B surface antigen, EIA Lab Routine Adult wellness visit Expected: 03/17/2025 (Approximate), Expires: 03/16/2026 Hepatitis C Antibody with Reflex to HCV, RNA, Quantitative, Real-Time PCR Lab Routine Adult wellness visit Expected: 03/17/2025 (Approximate), Expires: 03/16/2026 HIV-1/2 Antigen and Antibodies, Fourth Generation, with Reflexes Lab Routine Adult wellness visit Expected: 03/17/2025 (Approximate), Expires: 03/16/2026 Lipid Panel, Standard Lab Routine Adult wellness visit Expected: 03/17/2025 (Approximate), Expires: 03/16/2026 CBC auto differential Lab Routine Adult wellness visit Expected: 03/17/2025 (Approximate), Expires: 03/16/2026 Hemoglobin A1c Lab Routine Adult wellness visit Expected: 03/17/2025 (Approximate), Expires: 03/16/2026 Comprehensive Metabolic Panel Lab Routine Adult wellness visit Expected: 03/17/2025 (Approximate), Expires: 03/16/2026 documented as of this encounter Visit Diagnoses Diagnosis Adult wellness visit- Primary Dietary counseling Dietary surveillance and counseling Exercise counseling documented in this encounter Care Teams Creative Recruiter Relationship Specialty Start Date End Date Yanira Melissa FNP [address] [place], [place] [phone] PCP - General Family Medicine 03/17/25 documented as of this encounter
[2025-03-17 16:15] LABS: MANUAL DIFF FLAG NO
[2025-03-17 16:26] LABS: Basophils Percent Auto 0.4 % (0-2); Eosinophils Absolute Auto 0.4 X10*3/uL (0.0-0.4); Eosinophils Percent Auto 5.3 % (0-4); Hemoglobin 13.2 g/dl (12.0-16.0); Imm Gran Abs Auto 0.02 X10*3/uL (0.00-0.03); Imm Gran Pct Auto 0.3 % (0.0-0.4); Lymphocytes Absolute Auto 1.9 X10*3/uL (1.2-4.9); Lymphocytes Percent Auto 26.4 % (20-40); Mean Corpuscular HGB Conc 33.8 g/dl (31.0-35.0); Mean Corpuscular Hemoglobin 29.9 pg (27.0-33.0); Mean Corpuscular Volume 88.2 fL (80.0-98.0); Mean Platelet Volume 9.8 fL (9.4-12.3); Monocytes Absolute Auto 0.4 X10*3/uL (0.1-1.2); Monocytes Percent Auto 5.3 % (2-11); Neutrophils Absolute Auto 4.4 x10*3/uL (2.0-8.3); Neutrophils Percent Auto 62.3 % (45-73); Platelet Count 307 X10*3/uL (160-400); Red Blood Count 4.42 X10*6/uL (4.20-5.50); Red Cell Distribution Width 11.9 % (11.0-16.0)
[2025-03-17 16:39] LABS: Estimated Average Glucose 103 mg/dL; Hemoglobin A1c % 5.2 % (<6.0)
[2025-03-17 16:48] LABS: Alanine Aminotransferase 27 U/L (0-31); Albumin Level 4.6 g/dL (3.5-5.0); Alkaline Phosphatase 72 U/L (39-117); Anion Gap 9 (12-20); Aspartate Amino Transferase 23 U/L (5-31); Bilirubin Total 0.4 mg/dL (0.0-1.0); Blood Urea Nitrogen 14 mg/dL (9-16); Calcium 8.9 mg/dL (8.4-10.2); Carbon Dioxide 27 mmol/L (22-29); Chloride 108 mmol/L (96-108); Cholesterol 208 mg/dL (<200); Estimated Glomerular Filt Rate > 60; Glucose Random 97 mg/dL (60-115); HDL Cholesterol 56 mg/dL (>40); LDL Cholesterol Calculated 126 mg/dL (<100); Potassium 3.9 mmol/L (3.3-5.1); Sodium 140 mmol/L (135-145); Total Protein 7.2 g/dL (6.5-8.0); Triglycerides 134 mg/dL (<150)
[2025-03-17 18:08] LABS: CT PCR NOT DETECTED (Not Detect.); NG PCR NOT DETECTED (Not Detect.)
[2025-03-18 08:01] LABS: HBc Num1 0.08 S/CO (0.00-0.79); HBsAGNum1 0.28 S/CO (0.00-0.99); HIV AB/AG Nonreactive (Nonreactive); HIV Num 1 0.14 S/CO (0.00-0.99); Hepatitis B Core Antibody Nonreactive (Nonreactive); Hepatitis B Surface Antigen Negative (Negative); ~HepC Num1 0.12 S/CO (0.00-0.79); ~Hepatitis C Antibody Nonreactive (Nonreactive)
[2025-03-18 09:28] LABS: HBS Num3 9.22 mIU/mL (0-7.99); ~Hepatitis B Surface Antibody GRAYZONE (Nonreactive)
== END 2025-03-17 15:46 | disposition home or self-care (01) ==
LOC: HO.HHCL 15:45
PROVIDERS: Visit Provider Nurse Practitioner Family
DX: Z00.00 Encounter for general adult medical examination without abnormal findings (principal)
CPT/HCPCS: 80053; 80061; 83036; 85025; 86704; 86706; 86803; 87340; 87389; 87491; 87591

== ENCOUNTER 2025-04-28 15:56 | Outpatient (REF) | payer MEDICAID, SELFPAY ==
--- OUTSIDE RECORDS SUMMARY | 2025-04-28 16:00 | XMS_ITS | Clinical Summary ---
Author Organization [employer] Address [address] [place] [address] Care Team Providers Care [employer] Name Role Phone Yanira Melissa [facility] Primary Care Provider [phone] Allergies No known active allergies Medications ibuprofen 600 MG tabletIndicatio ns:Secondary dental caries,Encounte r for dental examination Take 1 tablet (600 mg) by mouth every 6 (six) hours if needed for mild pain for up to 20 doses. 20 tablet 5 Active amitriptyline (Elavil) 10 MG tablet Take 1 tablet (10 mg) by mouth at bedtime. 30 tablet 2 5 Active SUMAtriptan (Imitrex) 25 MG tablet Take 1 tablet (25 mg) by mouth 1 (one) time if needed for migraine. May repeat dose once in 2 hours if no relief. Do not exceed 2 doses in 24 hours. 9 tablet 3 5 12/15/19 26 Active famotidine (Pepcid) 20 MG tablet Take [...] 180 tablet 1 5 12/25/19 26 Active loratadine (Claritin) 10 MG tablet Take 1 tablet (10 mg) by mouth Once per day. 30 tablet 5 Active triamcinolone (Kenalog) 0.1 % creamIndication s:Seborrheic dermatitis Apply topically if needed in the morning and at bedtime for rash. 45 g 2 5 Active ketoconazole (NIZOral) 2 % shampooIndicati ons:Seborrheic dermatitis Apply topically 2 (two) times a week. As shampoo 120 mL 11 5 Active ketoconazole (NIZOral) 2 % creamIndication s:Seborrheic dermatitis Apply topically 2 times daily. 60 g 1 5 Active amoxicillin (Amoxil) 500 MG capsule Take 1 capsule (500 mg) by mouth every 8 (eight) hours for 7 days. 21 capsule 5 03/30/20 25 ibuprofen 600 MG tablet Take 1 tablet (600 mg) by mouth every 6 (six) hours if needed for mild pain for up to 10 days. 15 tablet 5 04/02/20 25 chlorhexidine (Peridex) 0.12 % solution Use 15 mL in the mouth or throat if needed (for mouthwash 15 ml for 30 seconds, swish and spit) for up to 14 days. 473 mL 5 04/06/20 25 Additional Information Patient not taking.Reported on 04/12/2025 Active Problems Problem Noted Date Diagnosed Date Seborrheic dermatitis 04/09/2025 Secondary dental caries 10/30/2024 Encounter for dental examination 10/30/2024 Encounters Date Type Department Care Team Description 04/28/2025 9:00 AM EDT Procedure Visit [facility] [address] [place] [phone] Aisha Rodriguez CNP Routine cervical smear (Primary Dx); Cyclical mastalgia 04/28/2025 Travel 04/27/2025 Telephone [facility] [address] [place] [phone] Yanira Melissa FNP CHART PREP 04/12/2025 8:30 AM EDT Office Visit [facility] [address] [place] [phone] Tavia Mullins DDS Dental caries (Primary Dx); Full coverage crown needed for root canal-treated tooth 04/07/2025 2:30 PM EDT Office Visit [address] [address] Yanira Melissa FNP Seborrheic dermatitis (Primary Dx) 04/07/2025 Travel 04/07/[address] [place] [address] Yanira Melissa FNP Nurse Triage 03/31/[address] [phone] Yanira Melissa FNP Referral 03/23/2025 8:00 AM EDT Office Visit [facility] [address] [place] [address] Vazquez-Royal, Tavia, DDS Encounter for dental examination (Primary Dx) 03/18/[address] [address] Yanira Melissa FNP Med Refill 03/17/2025 2:45 PM EDT Office Visit [address] [address] Yanira Melissa FNP Adult wellness visit (Primary Dx); Dietary counseling; Exercise counseling 03/17/2025 Travel 03/16/[address] [address] Trevor Law MA Chartprep 03/09/2025 Patient Outreach [facility] [address] [place] [address] Yanira Melissa FNP Pre-visit Planning (SDOH negative, Tobacco screening negative) 03/08/2025 9:00 AM EDT Office Visit [facility] [address] [place] [address] Vazquez-Royal, Tavia, DDS Dental caries (Primary Dx) 03/05/2025 8:00 AM EDT Office Visit [facility] [address] [place] [address] Vazquez-Royal, Tavia, DDS Dental caries (Primary Dx) 02/22/2025 9:45 AM EDT Office Visit [facility] [address] [place] [address] Eladia Bains, DDS 02/22/2025 8:00 AM EDT Office Visit [facility] [address] [place] [address] Vazquez-Royal, Tavia, DDS Failing root canal (Primary Dx) 02/15/2025 Orders Only [facility] [address] [place] [address] Vazquez-Royal, Tavia, DDS 02/04/2025 Orders Only [facility] [address] [place] [address] Vazquez-Royal, Tavia, DDS 02/03/2025 Telephone [facility] [address] [place] [address] Vazquez-Royal, Tavia, DDS Medication 02/02/2025 8:00 AM EDT Office Visit [facility] [address] [place] [address] Vazquez-Royal, Tavia, DDS Encounter for dental examination (Primary Dx); Dental caries from Last 3 Months Family History Medical History Relation Name Comments Hypertension Mother Relation Name Status Comments Mother Social History Tobacco Use Types Packs/Day Years Used Date Smoking Tobacco: Never Passive Smoke Exposure: Never Smokeless Tobacco: Never Tobacco Cessation:Counseling Given: No Alcohol Use Standard Drinks/Week Comments Never 0 (1 standard drink = 0.6 oz pur e alcohol) Depression Answer Date Recorded Patient Health Questionnaire-9 Score 4 04/28/2025 Patient Health Questionnaire-9 Score 4 04/28/2025 Last PHQ-9: Questionnaire Data Not on file 0 04/28/2025 Housing Stability Answer Date Recorded What is [...] off services in your home? No 03/09/2025 Depression Answer Date Recorded Patient Health Questionnaire-2 Score 2 04/28/2025 Internet Access Answer Date Recorded Internet Access Q1 Yes 03/09/2025 Internet Access Q2 Not on file 03/09/2025 Comments Unknown Intention Date Recorded No desire to become (finding) 0 04/28/2025 Sex and Gender Information Value Date Recorded Sex Assigned at Female 10/30/2024 10:58 AM EST Legal Sex Female 3:06 PM EST Gender Identity Female 10/30/2024 10:58 AM EST Sexual Orientation Straight 10/30/2024 10 :58 AM EST Last Filed Vital Signs Vital Sign Reading Time Taken Comments Blood Pressure 116/76 04/28/2025 9:09 AM EDT Pulse 85 04/28/2025 9:09 AM EDT Temperature 36.6 C (97.8 F) 04/28/2025 9:09 AM EDT Respiratory Rate 14 04/28/2025 9:09 AM EDT Oxygen Saturation 98% 04/28/2025 9:09 AM EDT Inhaled Oxygen Concentration - - Weight 73.1 kg (161 lb 3.2 oz) 04/28/2025 9:09 A M EDT Height 162.6 cm (5' 4 ) 04/28/2025 9:09 AM EDT Body Mass Index 27.67 04/28/2025 9:09 AM EDT Plan of Treatment Upcoming Encounters Date Type Department Care Team (Late st Contact Info) Description 05/10/2025 2:00 PM EDT Office Visit [facility] [address] [place] [address] Tavia Mullins, DDS [address] [place] [address] 07/29/2025 8:00 AM EDT Office Visit [facility] [address] [place] [address] Maritza Givens Health Maintenance Due Date Last Done Comments Dental Prophylaxis 1981 HPV Vaccines (1 - 3-dose series) 1996 DTaP/Tdap/Td Vaccines (1 - Tdap) 2000 Hepatitis B Vaccines (1 of 3 - 19+ 3-dose series) 2000 Pap Smear 2002 Cervical Cancer Screening 2011 HPV/Cotest 2011 Mammogram 2021 COVID-19 Vaccine (1 - 2023-2 5 season) 2024 Influenza Vaccine (#1) 2025 Dental Oral Exam 08/05/2025 02/02/2025 Dental X-Ray: Bitewings 02/03/2026 02/02/2025 SDOH Screening 03/09/2026 03/09/2025 Alcohol/Substance Use Screening 03/17/2026 03/17/2025 Disability Screening 03/17/2026 03/17/2025 Depression Screening 04/28/2026 04/28/2025, 04/28/2025 Family Planning (PISQ) 04/28/2026 04/28/2025 Tobacco Screening 04/28/2026 04/28/2025 Dental X-Ray: Full Mouth 02/04/2028 02/02/2025 Zoster Vaccines (1 of 2) 2031 RSV Patients and Patients Aged 60 years or older (1 - 1-dose 75+ series) 2056 HIV Screening Completed 03/17/2025 Hepatitis C Screening Completed 03/17/2025 HIB Vaccines Aged Out No longer eligi ble based on patient's age to complete this topic Hepatitis A Vaccines Aged Out No long er eligible based on patient's age to complete this topic IPV Vaccines Aged Out No longer eligi ble based on patient's age to complete this topic Meningococcal B Vaccine Aged Out No l onger eligible based on patient's age to complete this topic Meningococcal Vaccine Aged Out No deana ulices eligible based on patient's age to complete this topic Pneumococcal Vaccine: Pediatrics (0 to 5 Years) and At-Risk Patients (6 to 49) Years Aged Out No longer eligible b ased on patient's age to complete this topic RSV under 20 months Aged Out No longe r eligible based on patient's age to complete this topic Rotavirus Vaccines Aged Out No longer eligible based on patient's age to complete this topic Procedures Procedure Name Priority Date/Time Associated Diagnosis Comments CASE PRESENTATION, DETAILED AND EXTENSIVE TREATMENT PLANNING Routine 04/12/2025 8:30 AM EDT Dental caries Full coverage crown needed for root canal-treated tooth INTRAORAL - PERIAPICAL FIRST RADIOGRAPHIC IMAGE Routine 04/12/2025 8:30 AM EDT Dental caries Full coverage crown needed for root canal-treated tooth 8 PREFABRICATED POST AND CORE IN ADDITION TO CROWN Routine 04/12/2025 8:30 AM EDT Dental caries Full coverage crown needed for root canal-treated tooth CROWN PREP Routine 04/12/2025 8:30 AM EDT Dental caries Full coverage crown needed for root canal-treated tooth INTRAORAL - PERIAPICAL EACH ADDITIONAL RADIOGRAPHIC IMAGE Routine 03/23/2025 8:00 AM EDT INTRAORAL - PERIAPICAL FIRST RADIOGRAPHIC IMAGE Routine 03/23/2025 8:00 AM EDT NO CHARGE VISIT Routine 03/23/2025 8:00 AM EDT Encounter for dental examination COMPREHENSIVE METABOLIC PANEL Routine 03/17/2025 3:48 PM EDT Adult wellness visit HEMOGLOBIN A1C Routine 03/17/2025 3:48 PM EDT Adult wellness visit CBC WITH AUTO DIFFERENTIAL Routine 03/17/2025 3:48 PM EDT Adult wellness visit LIPID PANEL, STANDARD Routine 03/17/2025 3:48 PM EDT Adult wellness visit HIV 1/2 ANTIGEN/ANTIBODY, FOURTH GENERATION W/RFL Routine 03/17/2025 3:48 PM EDT Adult wellness visit HEPATITIS C AB W/REFL TO HCV RNA, QN, PCR Routine 03/17/2025 3:48 PM EDT Adult wellness visit HEPATITIS B SURFACE ANTIGEN, EIA Routine 03/17/2025 3:48 PM EDT Adult wellness visit HEPATITIS B SURFACE ANTIBODY, QUALITATIVE Routine 03/17/2025 3:48 PM EDT Adult wellness visit HEPATITIS B CORE AB TOTAL Routine 03/17/2025 3:48 PM EDT Adult wellness visit CHLAMYDIA/N. GONORRHOEAE RNA, TMA, UROGENITAL Routine 03/17/2025 3:48 PM EDT Adult wellness visit CASE PRESENTATION, DETAILED AND EXTENSIVE TREATMENT PLANNING Routine 03/08/2025 9:00 AM EDT Dental caries 12 MO RESIN-BASED COMPOSITE - 2 SURF, POSTERIOR Routine 03/08/2025 9:00 AM EDT Dental caries 13 MOD RESIN-BASED COMPOSITE - 3 SURF, POSTERIOR Routine 03/08/2025 9:00 AM EDT Dental caries 12 D AMALGAM FILLING Routine 03/08/2025 12:00 AM EDT CASE PRESENTATION, DETAILED AND EXTENSIVE TREATMENT PLANNING Routine 03/05/2025 8:00 AM EDT Dental caries 10 DL RESIN-BASED COMPOSITE - 2 SURF, ANTERIOR Routine 03/05/2025 8:00 AM EDT Dental caries 9 DL RESIN-BASED COMPOSITE - 2 SURF, ANTERIOR Routine 03/05/2025 8:00 AM EDT Dental caries 8 POST REMOVAL Routine 02/22/2025 9:45 AM EDT 8 RETREATMENT OF PREVIOUS ROOT CANAL THERAPY - ANTERIOR Routine 02/22/2025 9:45 AM EDT NO CHARGE VISIT Routine 02/22/2025 8:00 AM EDT CASE PRESENTATION, DETAILED AND EXTENSIVE TREATMENT PLANNING Routine 02/02/2025 8:00 AM EDT INTRAORAL - COMPLETE SERIES OF RADIOGRAPHIC IMAGES Routine 02/02/2025 8:00 AM EDT COMPREHENSIVE ORAL EVALUATION - NEW OR ESTABLISHED PATIENT Routine 02/02/2025 8:00 AM EDT 20 EXTRACTION Routine 02/02/2025 12:00 AM EDT 19 EXTRACTION Routine 02/02/2025 12:00 AM EDT 18 EXTRACTION Routine 02/02/2025 12:00 AM EDT 4 EXTRACTION Routine 02/02/2025 12:00 AM EDT 4 EXTRACTION Routine 02/02/2025 12:00 AM EDT 31 EXTRACTION Routine 02/02/2025 12:00 AM EDT 30 EXTRACTION Routine 02/02/2025 12:00 AM EDT 29 EXTRACTION Routine 02/02/2025 12:00 AM EDT from Last 3 Months Results * (ABNORMAL) CBC auto differential (03/17/2025 3:48 PM EDT) White Blood Count 7.0 4.8 - 10.8 X10*3/uL [facility] Red Blood Count 4.42 4.20 - 5.50 X10*6/uL [facility] Hemoglobin 13.2 12.0 - 16.0 g/dl [facility] Hematocrit 39.0 37.0 - 47.0 % [facility] Mean Corpuscular Volume 88.2 80.0 - 98.0 fL [facility] Mean Corpuscular Hemoglobin 29.9 27.0 - 33.0 pg [facility] Mean Corpuscular HGB Conc 33.8 31.0 - 35.0 g/dl [facility] Red Cell Distribution Width 11.9 11.0 - 16.0 % [facility] Platelet Count 307 160 - 400 X10*3/uL [facility] Mean Platelet Volume 9.8 9.4 - 12.3 fL [facility] Neutrophils Percent Auto 62.3 45 - 73 % [facility] Imm Gran Pct Auto 0.3 0.0 - 0.4 % [facility] Lymphocytes Percent Auto 26.4 20 - 40 % [facility] Monocytes Percent Auto 5.3 2 - 11 % [facility] Eosinophils Percent Auto 5.3(H) 0 - 4 % [facility] Basophils Percent Auto 0.4 0 - 2 % [facility] NRBC Pct Auto 0.0 0.0 - 0.2 /100WBC [facility] Neutrophils Absolute Auto 4.4 2.0 - 8.3 x10*3/uL [facility] Imm Gran Abs Auto 0.02 0.00 - 0.03 X10*3/uL [facility] Lymphocytes Absolute Auto 1.9 1.2 - 4.9 X10*3/uL [facility] Monocytes Absolute Auto 0.4 0.1 - 1.2 X10*3/uL [facility] Eosinophils Absolute Auto 0.4 0.0 - 0.4 X10*3/uL [facility] Basophils Absolute Auto 0.0 0.0 - 0.2 X10*3/uL [facility] NRBC Abs Auto 0.000 0.0 - 0.012 X10*3/uL [facility] Blood Venous blood specimen / Unknown 03/17/2025 3:48 PM EDT 03/17/2025 4:12 PM EDT [facility] LAB BLOOD ORDERABLES Final Res ult Performing Organization Address [facility]/ZIP Co de Phone Number [facility] [address] [place] [address] [phone] * Hepatitis C Antibody with Reflex to HCV, RNA, Quantitative, Real-Time PCR (03/17/2025 3:48 PM EDT) Pathologist [facility] [place] Hepatitis C Antibody Nonreactive Nonreactive [facility] Comment:Antibodies to HCV no t detected; does not exclude early acuteHCV infection. Blood Venous blood specimen / Unknown 03/17/2025 3:48 PM EDT 03/17/2025 4:12 PM EDT [facility] LAB BLOOD ORDERABLES Final Res ult Performing Organization Address [facility]/ZIP Co de Phone Number [facility] [address] [place] [address] [phone] * Chlamydia/N. Gonorrhoeae RNA, TMA, Urine (03/17/2025 3:48 PM EDT) CT PCR NOT DETECTED Not Detect. [facility] Comment:A not detected test result does not exclude the possibilityof infection because test results can be affected byimproper specimen collection, concurrent antibiotic therapy,or the number of organisms in the specimen which may bebelow the sensitivity of the test. As with many diagnostictests, results from the Xpert CT/NG assay should beinterpreted in conjunction with other laboratory andclinical data available to the clinician.Xpert CT/NG performance has not been evaluated in patientsless than 14 years of age. The assay should not be used forthe evaluationof suspected sexual abuse or for other medico-legalindications. Additional testing is recommended in anycircumstance when false positive or false negative resultscould lead to adverse medical, social or psychologicalconsequences. NG PCR NOT DETECTED Not Detect. [facility] Comment:A not detected test result does not exclude the possibilityof infection because test results can be affected byimproper specimen collection, concurrent antibiotic therapy,or the number of organisms in the specimen which may bebelow the sensitivity of the test. As with many diagnostictests, results from the Xpert CT/NG assay should beinterpreted in conjunction with other laboratory andclinical data available to the clinician.Xpert CT/NG performance has not been evaluated in patientsless than 14 years of age. The assay should not be used forthe evaluationof suspected sexual abuse or for other medico-legalindications. Additional testing is recommended in anycircumstance when false positive or false negative resultscould lead to adverse medical, social or psychologicalconsequences. Urine (Urine, Random) 03/17/2025 3:48 PM EDT 03/17/2025 4:11 PM EDT Narrative [facility] - 03/17/2025 6:08 PM EDT Urine [employer] [facility] MICROBIOLOGY - GENERAL ORD ERABLES Final Result Performing Organization Address [facility] Co de Phone Number [facility] [address] [place] [phone] * Hepatitis B surface antigen, EIA (03/17/2025 3:48 PM EDT) Hepatitis B Surface Ag Negative Negative [facility] Blood Venous blood specimen / Unknown 03/17/2025 3:48 PM EDT 03/17/2025 4:12 PM EDT [employer] LAB BLOOD ORDERABLES Final Res ult Performing Organization Address City/[facility] Co de Phone Number [facility] [address] [place] [address] [phone] * Hepatitis B Core Antibody, Total (03/17/2025 3:48 PM EDT) Hepatitis B Core Antibody Nonreactive Nonreactive [facility] Blood Venous blood specimen / Unknown 03/17/2025 3:48 PM EDT 03/17/2025 4:12 PM EDT [facility] [employer] [facility] LAB BLOOD ORDERABLES Final Res ult [facility] [address] [place] [phone] * HIV-1/2 Antigen and Antibodies, Fourth Generation, with Reflexes (03/17/2025 3:48 PM EDT) HIV AB/AG Nonreactive Nonreactive [facility] Comment:HIV-1 p24 Ag and/or HIV-1/HIV-2 Ab not detected.A test result that is nonreactive does not exclude thepossibility of exposure to or infection with HIV-1 and/orHIV-2. Nonreactive results in this assay for individualswith prior exposure to HIV-1 and/or HIV-2 may be due toantigen and antibody levels that are below the limit ofdetection of this assay.The [employer] HIV Ag/Ab Combo assay result andsupplemental assay results should be interpreted inconjunction with the patient's clinical presentation,history and other laboratory results. If the results areinconsistent with clinical evidence, additional testing issuggested to confirm the result. Blood Venous blood specimen / Unknown 03/17/2025 3:48 PM EDT 03/17/2025 4:12 PM EDT [employer] LAB BLOOD ORDERABLES Final Res ult [facility] [address] [place] [address] [phone] * Hepatitis B Surface Antibody, Qualitative (03/17/2025 3:48 PM EDT) ~Hepatitis B Surface Antibody GRAYZONE Nonreactive [facility] Comment:GRAYZONE: 8.00 mIU/m L TO 11.99 mIU/mLTHE IMMUNE STATUS OF THE INDIVIDUAL SHOULD BE FURTHERASSESSED BY CONSIDERING OTHER FACTORS, SUCH CLINICALSTATUS, FOLLOW-UP TESTING, ASSOCIATED RISK FACTORS, AND THEUSE OF ADDITIONAL DIAGNOSTIC INFORMATION. Blood Venous blood specimen / Unknown 03/17/2025 3:48 PM EDT 03/17/2025 4:12 PM EDT [employer] LAB BLOOD ORDERABLES Final Res ult Performing Organization Address [facility] Co de Phone Number [facility] [address] [place] [phone] * Hemoglobin A1c (03/17/2025 3:48 PM EDT) Hemoglobin A1c 5.2 <6.0 % [facility] Comment:Hemoglobin A1C Refer ence Range Adults: 4.8 - 6.0 % Non diabetic: < 6.0 % Goal: < 7.0 %Additional Action Suggested: > 8.0 %Note: Hemoglobin A1c results are invalid for patients with abnormal amounts of HbF. Blood transfusions may impact the HbA1c concentration in the patient sample. Estimated Average Glucose 103 mg/dL [facility] Comment:eAG = Estimated ave rage glucose which is %A1C expressed asaverage glucose, using the formula of the [id number] Glucose study (ADAG), Diabetes Care, Vol.31,#8,May. 2007 Blood Venous blood specimen / Unknown 03/17/2025 3:48 PM EDT 03/17/2025 4:12 PM EDT us [employer] LAB BLOOD ORDERABLES Final Res ult Performing Organization Address [facility] Co de Phone Number [facility] [address] [place] [phone] * (ABNORMAL) Lipid Panel, Standard (03/17/2025 3:48 PM EDT) Triglycerides 134 <150 mg/dL [facility] Comment:Desirable Triglyceri de: less than 150 mg/dLBorderline High Triglyceride 150-199 mg/dLHigh Triglyceride: 200-499 mg/dLVery High Triglyceride: greater than or equal to 5OO mg/dL Cholesterol 208(H) <200 mg/dL [facility] Comment:Desirable Cholestero l: less than 200 mg/dLBorderline High Cholesterol: 200-239 mg/dLHigh Cholesterol: greater than 239 mg/dL LDL Cholesterol Calculated 126(H) <100 mg/dL [facility] Comment:Desirable LDL: less than 100 mg/dLNear Optimal/Above Optimal LDL: 110- 129 mg/dLBorderline High LDL: 130-159 mg/dLHigh LDL: 160-189 mg/dLVery High LDL: greater than or equal to 190 mg/dL HDL Cholesterol 56 >40 mg/dL [facility] Comment:Desirable HDL: great er than 40 mg/dL Note: This HDL assay may give artificially low results in patients with liver disease. Blood Venous blood specimen / Unknown 03/17/2025 3:48 PM EDT 03/17/2025 4:12 PM EDT us Yanira Melissa GEOGRAPHIC ANALYST LAB BLOOD ORDERABLES Final Res ult [facility] [address] [place] [phone] * (ABNORMAL) Comprehensive Metabolic Panel (03/17/2025 3:48 PM EDT) Sodium 140 135 - 145 mmol/L [facility] Potassium 3.9 3.3 - 5.1 mmol/L [facility] Chloride 108 96 - 108 mmol/L [facility] Carbon Dioxide 27 22 - 29 mmol/L [facility] Anion Gap 9(L) 12 - 20 [facility] Urea Nitrogen (BUN) 14 9 - 16 mg/dL [facility] Creatinine, Serum 0.94 0.5 - 1.4 mg/dL [facility] Estimated Glomerular Filt Rate >60 [facility] Comment:Chronic Kidney Disea se: Estimated GFR < 60 mL/min/[id number] Kidney Disease: Estimated GFR < 15 mL/min/1.73m2 Glucose 97 60 - 115 mg/dL [facility] Calcium 8.9 8.4 - 10.2 mg/dL [facility] Bilirubin, Total 0.4 0.0 - 1.0 mg/dL [facility] Aspartate Amino Transferase 23 5 - 31 U/L [facility] Alanine Aminotransferase 27 0 - 31 U/L [facility] Total Protein 7.2 6.5 - 8.0 g/dL [facility] Albumin Level 4.6 3.5 - 5.0 g/dL [facility] Alkaline Phosphatase 72 39 - 117 U/L [facility] Blood Venous blood specimen / Unknown 03/17/2025 3:48 PM EDT 03/17/2025 4:12 PM EDT us Yanira Melissa GEOGRAPHIC ANALYST LAB BLOOD ORDERABLES Final Res ult Performing Organization Address City/State/[facility] Co de Phone Number [facility] [address] [place] [address] [phone] from Last 3 Months Insurance [facility] C[place] ST[place] AD[place] AD[place] Care Teams [employer] Relationship Specialty Start Date End Date Yanira Melissa FNP [address] [place] [phone] PCP - General Family Medicine 03/17/25
== END 2025-04-28 15:57 | disposition home or self-care (01) ==
LOC: HO.HHCLNP 15:56
DX: Z12.4 Encounter for screening for malignant neoplasm of cervix (principal); Z11.51 Encounter for screening for human papillomavirus (HPV)
CPT/HCPCS: 87626; 88175

== ENCOUNTER 2025-07-10 08:11 | Outpatient (REF) | payer MEDICAID, SELFPAY | END 2025-07-10 08:12 | disposition home or self-care (01) | LOC: HO.MAMMO 08:11 | PROVIDERS: PCP Nurse Practitioner Family; Visit Provider Nurse Practitioner Family | DX: Z12.31 Encounter for screening mammogram for malignant neoplasm of breast (principal) | CPT/HCPCS: 77063; 77067 ==

== ENCOUNTER → 2025-07-10 08:15 | Outpatient (BNV) | payer MEDICAID, SELFPAY | PROVIDERS: PCP Nurse Practitioner Family; Visit Provider Radiology Body Imaging | DX: Z12.31 Encounter for screening mammogram for malignant neoplasm of breast (principal) | CPT/HCPCS: 77063; 77067 ==

== ENCOUNTER 2025-07-16 16:02 | Outpatient (REF) | payer MEDICAID, SELFPAY ==
[2025-07-17 02:25] LABS: Bacterial Vaginosis PCR NEGATIVE (Negative); Candida Group PCR NOT DETECTED (Not Detect); Candida glab krusei PCR NOT DETECTED (Not Detect); Trichomonas vaginalis PCR NOT DETECTED (Not Detect)
[2025-07-17 02:55] LABS: CT PCR NOT DETECTED (Not Detect.); NG PCR NOT DETECTED (Not Detect.)
== END 2025-07-16 16:03 | disposition home or self-care (01) ==
LOC: HO.HHCLNP 16:02
PROVIDERS: Visit Provider Internal Medicine
DX: Z11.3 Encounter for screening for infections with a predominantly sexual mode of transmission (principal); Z11.8 Encounter for screening for other infectious and parasitic diseases; R31.0 Gross hematuria
CPT/HCPCS: 81515; 87086; 87491; 87591

== ENCOUNTER 2025-07-20 09:51 | Outpatient (REF) | payer MEDICAID, SELFPAY ==
--- OUTSIDE RECORDS SUMMARY | 2025-07-16 13:40 | XMS_ITS | Encounter Summary ---
Author Organization [email or web address] Address [address] [place] [address] Care Team Providers Care District Sales Representative Name Role Phone Yanira Melissa MILL WORKER Primary Care Provider [phone] Reason for Visit * Reason Comments Blood in Urine Encounter Details Date Type Department Care Team ([facility] st Contact Info) Description 07/16/2025 1:40 PM EDT Office Visit [facility] [address] [place] [address] Cindy Pacheco MD [address] [place] [address] Gross hematuria (Primary Dx) Social History Tobacco [...] 3:00 PM Tavia Mullins DDS ADLT DENT [facility] 07/23/2025 11:15 AM Chen Sweell OD VISION [facility] 07/29/2025 8:00 AM Maritza Givens ADLT DENT [facility] 08/10/2025 10:00 AM COURTNEY Matta MEDICINE [facility] documented in this encounter Plan of Treatment Upcoming Encounters Date Type Department Care Team ([facility] st Contact Info) Description 07/23/2025 11:15 AM EDT Office Visit [facility] OPTOMETRY [address] [place] [phone] Chen Sewell, OD [address] [place] [address] 07/29/2025 8:00 AM EDT Office Visit [facility] ADULT DENTAL [address] [place] [address] Givens, Maritza 08/09/2025 10:00 AM EDT Office Visit [facility] ADULT DENT[facility] [address] [place] [address] Vazquez-Royal, Tavia, DDS [address] [place] [address] 08/10/2025 10:00 AM EDT Office Visit [facility] MEDICINE [address] [place] [address] Okorqu[place]ao Yanira, MILL WORKER [address] [place] [address] documented as of this encounter Procedures Procedure [...] EDT) CT PCR NOT DETECTED Not Detect. [facility] Comment:A not detected test result does [...] psychologicalconsequences. NG PCR NOT DETECTED Not Detect. [facility] Comment:A not detected test result does [...] MICROBIOLOGY - GENERAL OR DERABLES Final Result [facility] [address] [place] [phone] * Bacterial Vaginosis Panel (07/16/2025 2:50 PM EDT) TRICHOMONAS VAGINALIS DETECTION BY PCR NOT DETECTED Not Detect [facility] BACTERIAL VAGINOSIS DETECTION BY PCR NEGATIVE Negative [facility] Comment:The BV organism targ ets of [...] DETECTION BY PCR NOT DETECTED Not Detect [facility] Suzi glab krusei PCR NOT DETECTED Not Detect [facility] Swab Vaginal structure / Unknown 07/16/2025 2:50 PM EDT 07/16/2025 4:28 PM EDT us Cindy Pacheco MD LAB MICROBIOLOGY - GENERAL OR DERABLES Final Result Performing Organization Address [facility] Co de Phone Number [facility] [address] [place] [phone] * Culture, Urine, Routine (07/16/2025 2:50 PM EDT) Urine Urine specimen obtained by clean catch procedure / Unknown 07/16/2025 2:50 PM EDT 07/16/2025 4:02 PM EDT Comment:UACC Narrative [facility] - 07/18/2025 10:37 AM EDT Lactobacillus species Quant > 100,000 cfu/mL Susc N/A Susceptibility not routinely performed on this isolate. Specimen Source: Urine clean catch us Cindy Pacheco MD LAB MICROBIOLOGY - GENERAL OR DERABLES Final Result Performing Organization Address [facility] Co de Phone Number [facility] [address] [place] [phone] * (ABNORMAL) POCT Urinalysis (07/16/2025 2:17 [...] Appearance, UA CLEAR QC Media Lot # [id number] Lot# Expiration Date [id number] Urine 07/16/2025 2:17 PM EDT Cindy Pacheco MD POINT OF CARE TEST ENTER/EDIT ORDERABLES Final Result documented in this encounter Visit Diagnoses Diagnosis Gross hematuria- Primary documented in this encounter Additional Health Concerns Assessment Noted Time PHQ-9 Depression Total Score: 4 04/28/20 25 9:30 AM EDT documented as of this encounter Care Teams District Sales Representative Relationship Specialty Start Date End Date Yanira Melissa FNP [address] [place] [phone] PCP - General Family Medicine 03/17/25 documented as of this encounter
--- OUTSIDE RECORDS SUMMARY | 2025-07-19 15:00 | XMS_ITS | Encounter Summary ---
Author Organization [employer] Address [address] [facility] 7t [place] [address] Care Team Providers Care Media Clerk Name Role Phone Yanira Melissa PAID SEARCH MANAGER Primary Care Provider [phone] Reason for Visit * Reason Comments Filling Encounter Details Date Type Department Care Team (Late st Contact Info) Description 07/19/2025 3:00 PM EDT Office Visit [facility] ADULT DENTAL [address] [place], [place] [phone] Tavia Mullins DDS [address] [place], [place] [phone] Dental caries (Primary Dx) Social History Tobacco [...] Time: 141 (filling on tooth #28) Location: [facility] Tooth: #28 Procedure: Baptism Verified the above with patient, medical records assistant, and provider. Confirmed via patient's chart, intraorally and by radiographs. Oil Recovery Operator: not applicable Chief Complaint Patient presents with [...] Etch Desensitizer: Gluma Liner/Base: None Boss: I-Boss Baptism Material: Filtek [place] Flowable Composite and Paradigm Composite Shade: A3 Polished. Occlusion & contacts verified. Patient satisfied with comfort and esthetics. Patient tolerated procedure well. Post-operative instructions were given. Patient departed alert, oriented, and in stable condition. NV: Impression lower RPD Stringer Up Soldering Machine: Minna Livingston Dentist: Tavia Mullins DDS documented in this encounter Plan of Treatment Upcoming Encounters Date Type Department Care Team (Late st Contact Info) Description 07/23/2025 11:15 AM EDT Office Visit [facility] OPTOMETRY [address] [place] [address] Chen Sewell, OD [address] [place] [address] 07/29/2025 8:00 AM EDT Office Visit [facility] ADULT DENTAL [address] [place] [address] Maritza Givens 08/09/2025 10:00 AM EDT Office Visit [facility] ADULT DENTAL [address] [place] [address] Tavia Mullins DDS [address] [place] [address] 08/10/2025 10:00 AM EDT Office Visit [facility] MEDICINE [address] [place] [address] Yanira Melissa FNP [address] [place] [address] documented as of this encounter Procedures Procedure [...] documented as of this encounter Care Teams Media Clerk Relationship Specialty Start Date End Date Yanira Melissa FNP [address] [place] [address] PCP - General Family Medicine 03/17/25 documented as of this encounter
--- OUTSIDE RECORDS SUMMARY | 2025-07-20 10:45 | XMS_ITS | Encounter Summary ---
Author Organization [employer] Address [address] [facility] 7t [place] [address] Care Team Providers Care Primary Care Md Name Role Phone Yanira Melissa CHRONOMETER ASSEMBLER AND ADJUSTER Primary Care Provider [phone] Reason for Visit * Reason Onset Date Comments referral 01/05/2025 Encounter Details Date Type Department Care Team (Late st Contact Info) Description 01/05/2025 Telephone [facility] ADULT DENTAL [address] [place] [address] Tavia Mullins DDS [address] [place] [address] referral Social History Tobacco Use Types Packs/Day Years [...] encounter Miscellaneous Notes * Telephone Encounter - Prasanna Lennno DMD - 01/06/2025 3:10 PM EDT Please follow up with Dr. Royal * Telephone Encounter - Reena Waldrop - 01/05/2025 1:12 PM EDT Patient is trying to get an appt at [facility] for RCT. They need a referral sent to their office at [email or web address] documented in this encounter Plan of Treatment Upcoming Encounters Date Type Department Care Team (Late st Contact Info) Description 07/23/2025 11:15 AM EDT Office Visit [facility] OPTOMETRY [address] [place] [address] Chen Sewell, OD [address] [place] [address] 07/29/2025 8:00 AM EDT Office Visit [facility] ADULT DENTAL [address] [place] [address] Maritza Givens 08/09/2025 10:00 AM EDT Office Visit [facility] ADULT DENTAL [address] [place] [address] Vazquez-Royal, Tavia, DDS [address] [place] [address] 08/10/2025 10:00 AM EDT Office Visit [facility] MEDICINE [address] [place] [address] Yanira Melissa FNP [address] [place] [address] documented as of this encounter Visit Diagnoses Not on filedocumented in this encounter Care Teams Primary Care Md Relationship Specialty Start Date End Date Yanira Melissa FNP [address] [place] [address] PCP - General Family Medicine 03/17/25 documented as of this encounter
--- OUTSIDE RECORDS SUMMARY | 2025-07-20 10:45 | XMS_ITS | Encounter Summary ---
Author Organization [employer] Address [address] [facility] 7t [place] [address] Care Team Providers Care Doctor Podiatric Medicine Name Role Phone Yanira Melissa [facility] Primary Care Provider [phone] Encounter Details Date Type Department Care Team (Latest Contact Info) Description 07/16/2025 Travel Social History Tobacco Use Types Packs/Day Years [...] your housing situation today? I have anel diana 03/09/[address] you li [...] AM EST documented as of this encounter Plan of Treatment Upcoming Encounters Date Type Department Care Team (Late st Contact Info) Description 07/23/2025 11:15 AM EDT Office Visit [facility] OPTOMETRY [address] [place] [address] TarkaChen, OD [address] [place] [address] 07/29/2025 8:00 AM EDT Office Visit [facility] ADULT DENTAL [address] [place] [address] Maritza Givens 08/09/2025 10:00 AM EDT Office Visit [facility] ADULT DENTAL [address] [place] [address] Vazquez-Royal, Tavia, DDS [address] [place] [address] 08/10/2025 10:00 AM EDT Office Visit [facility] MEDICINE [address] [place] [address] Yanira Melissa FNP [address] [place] [address] documented as of this encounter Visit Diagnoses Not on filedocumented in this encounter Additional Health Concerns Assessment Noted Time PHQ-9 Depression Total Score: 4 04/28/20 25 9:30 AM EDT documented as of this encounter Care Teams Doctor Podiatric Medicine Relationship Specialty Start Date End Date Yanira Melissa FNP [address] [place] [address] PCP - General Family Medicine 03/17/25 documented as of this encounter
--- OUTSIDE RECORDS SUMMARY | 2025-07-20 10:45 | XMS_ITS | Encounter Summary ---
Author Organization [employer] Address [address] [facility] 7t [place] [address] Care Team Providers Care Restaurant Expeditor Name Role Phone Yanira Melissa FERRY OPERATOR Primary Care Provider [phone] Reason for Visit * Reason Onset Date Comments Results 07/19/2025 Encounter Details Date Type Department Care Team ([facility] st Contact Info) Description 07/19/2025 Telephone [facility] MEDICINE [address] [place], [place] [phone] Yanira Melissa FNP [address] [place] [address] Results Social History Tobacco Use Types Packs/Day Years [...] t he electric, gas, oil or water [employer] threatened to shut off services in your [...] encounter Miscellaneous Notes * Telephone Encounter - Codie Paul RN - 07/19/2025 9:21 AM EDT Telephone call to pt via [employer]. Advised pt that STI testing and bacterial vaginosis panel negative. Advised that urine testing shows lactobacillus bacteria which is common in probiotics and yogurt and will call back with any update regarding antibiotics. Pt denies taking probiotics or e ating yogurt in great quantities. Pt reports ongoing hematuria as when she saw Dr Pacheco 07/16/25. No further questions. * Telephone Encounter - Cynthia Estrada - 07/19/2025 8:28 AM EDT TC from pt requesting call back regarding Results. Type of results: Blood Date when done: 07/16 Facility: [facility] Contact pt at [phone] Need station engineer documented in this encounter Plan of Treatment Upcoming Encounters Date Type Department Care Team (Late st Contact Info) Description 07/23/2025 11:15 AM EDT Office Visit [facility] OPTOMETRY [address] [place] [address] Chen Sewell, OD [address] [place] [address] 07/29/2025 8:00 AM EDT Office Visit [facility] ADULT DENTAL [address] [place] [address] Tosha Maritza 08/09/2025 10:00 AM EDT Office Visit [facility] ADULT DENTAL [address] [place] [address] Vazquez-Royal, Tavia, DDS [address] [place] [address] 08/10/2025 10:00 AM EDT Office Visit [facility] MEDICINE [address] [place] [address] Yanira Melissa FNP [address] [place] [address] documented as of this encounter Visit Diagnoses Not on filedocumented in this encounter Additional Health Concerns Assessment Noted Time PHQ-9 Depression Total Score: 4 04/28/20 25 9:30 AM EDT documented as of this encounter Care Teams Restaurant Expeditor Relationship Specialty Start Date End Date Yanira Melissa FNP [address] [place] [address] PCP - General Family Medicine 03/17/25 documented as of this encounter
--- OUTSIDE RECORDS SUMMARY | 2025-07-20 10:45 | XMS_ITS | Encounter Summary ---
Author Organization [employer] Address [address] [facility] 7t [place] [address] Care Team Providers Care Accounting Manager Controller Name Role Phone Yanira Melissa INDUCTION HEAT TREATER Primary Care Provider [phone] Reason for Visit * Reason Onset Date Comments Results 07/20/2025 Encounter Details Date Type Department Care Team ([facility] st Contact Info) Description 07/20/2025 Results Follow-Up [facility] [address] [place] [address] Cindy Pacheco MD [address] [place] [address] POCT Urinalysis, Bacterial Vaginosis Panel, Chlamydia/N. 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 ----- Message from Cindy Pacheco MD sent at 07/20/2025 8:57 AM EDT ----- Please inform Hailey that a bacteria grew in her urine that is not a cause of urinary tract infections, so she does not need antibiotics. Please also inform her I received her message that she is still having blood in the urine, and thatI ordered another urine test to get a complete analysis of the urine. She can go to [facility] or [facility] to do the test. Once I have that result, I can give further guidance. ----- Message ----- From: Emperatriz León [place] Sent: 07/16/2025 2:19 PM EDT To: Cindy Pacheco MD * Result Encounter Note - Cindy Pacheco MD - 07/20/2025 8:57 AM EDT Please inform Hailey that a bacteria grew in her urine that is not a cause of urinary tract infections, so she does not need antibiotics. Please also inform her I received her message that she is still having blood in the urine, and thatI ordered another urine test to get a complete analysis of the urine. She can go to [facility] or [facility] to do the test. Once I have that result, I can give further guidance. documented in this encounter Plan of Treatment Upcoming Encounters Date Type Department Care Team (Late st Contact Info) Description 07/23/2025 11:15 AM EDT Office Visit [facility] OPTOMETRY [address] [place] [address] Chen Sewell OD [address] [place] [address] 07/29/2025 8:00 AM EDT Office Visit [facility] ADULT DENTAL [address] [place] [address] Maritza Givens 08/09/2025 10:00 AM EDT Office Visit [facility] ADULT DENTAL [address] [place] [address] Vazquez-RoyalTavia knox, DDS [address] [place] [address] 08/10/2025 10:00 AM EDT Office Visit [facility] MEDICINE [address] [place] [address] Yanira Melissa FNP [address] [place] [address] Scheduled Orders Name Type Priority Associated Diagnoses Orde r Schedule Urinalysis with reflex microscopic Lab Routine Gross hematuria Expected: 07/20/2025, Expires: 07/20/2026 documented as of this encounter Visit Diagnoses Diagnosis Gross hematuria- Primary documented in this encounter Additional Health Concerns Assessment Noted Time PHQ-9 Depression Total Score: 4 04/28/20 25 9:30 AM EDT documented as of this encounter Care Teams Accounting Manager Controller Relationship Specialty Start Date End Date Yanira Melissa FNP [address] [place] [address] PCP - General Family Medicine 03/17/25 documented as of this encounter
--- OUTSIDE RECORDS SUMMARY | 2025-07-20 10:45 | XMS_ITS | Encounter Summary ---
Author Organization [employer] Address [address] [facility] 7t [place] [address] Care Team Providers Care Hot Saw Helper Name Role Phone Yainra Melissa [facility] Primary Care Provider [phone] Reason for Visit * Reason Onset Date Comments Nurse Triage 07/16/2025 Encounter Details Date Type Department Care Team (Late st Contact Info) Description 07/16/2025 Telephone [facility] MEDICINE [address] [place] [address] Yanira Melissa FNP [address] [place] [address] Nurse Triage Social History Tobacco Use Types [...] encounter Miscellaneous Notes * Telephone Encounter - Ivelisse Choi RN - 07/16/2025 12:04 PM EDT Call returned to [facility] at [phone] for triage below. No answer LVM to return call to [facility] triage line [phone]. * Telephone Encounter - Blayne Longoria - 07/16/2025 11:20 AM EDT TC from pt reports has noticed blood in her urine . In addition pt reports was brushing her teeth and when she rinsed she also noticed blood . Romansh speaking documented in this encounter Plan of Treatment Upcoming Encounters Date Type Department Care Team (Late st Contact Info) Description 07/23/2025 11:15 AM EDT Office Visit [facility] OPTOMETRY [address] [place] [address] Chen Sewell, OD [address] [place] [address] 07/29/2025 8:00 AM EDT Office Visit [facility] ADULT DENTAL [address] [place] [address] Maritza Givens 08/09/2025 10:00 AM EDT Office Visit [facility] ADULT DENTAL [address] [place], [place] [phone] Vazquez-Royal, Tavia, DDS [address] [place], [place] [phone] 08/10/2025 10:00 AM EDT Office Visit [facility] MEDICINE [address] [place], [place] [phone] Yanira Melissa FNP [address] [place], [place] [phone] documented as of this encounter Visit Diagnoses Not on filedocumented in this encounter Additional Health Concerns Assessment Noted Time PHQ-9 Depression Total Score: 4 04/28/20 25 9:30 AM EDT documented as of this encounter Care Teams Hot Saw Helper Relationship Specialty Start Date End Date Yanira Melissa FNP [address] [place], [place] [phone] PCP - General Family Medicine 03/17/25 documented as of this encounter
--- OUTSIDE RECORDS SUMMARY | 2025-07-20 10:45 | XMS_ITS | Encounter Summary ---
Author Organization [facility] Address [address] [facility] 7t [place] [address] Care Team Providers Care Group Therapy Counselor Name Role Phone Yanira Melissa [facility] Primary Care Provider Reason for Visit * Reason Onset Date Comments Medication 02/03/2025 Encounter Details Date Type Department Care Team (Late st Contact Info) Description 02/03/2025 Telephone [facility] ADULT DENTAL [address] [place] [address] Tavia Mullins DDS [address] [place] [address] Medication Social History Tobacco Use Types Packs/Day Years [...] encounter Miscellaneous Notes * Telephone Encounter - Reena Waldrop - 02/03/2025 3:56 PM EDT Patient was under the impressed that the medication was going to be sent to the pharmacy. Can something be sent? documented in this encounter Plan of Treatment Upcoming Encounters Date Type Department Care Team (Late st Contact Info) Description 07/23/2025 11:15 AM EDT Office Visit [facility] OPTOMETRY [address] [place] [address] Chen Sewell, OD [address] [place] [address] 07/29/2025 8:00 AM EDT Office Visit [facility] ADULT DENTAL [address] [place] [address] GivensMaritza gaytan 08/09/2025 10:00 AM EDT Office Visit [facility] ADULT DENTAL [address] [place] [address] Taylor-Tavia Royal, DDS [address] [place] [address] 08/10/2025 10:00 AM EDT Office Visit [facility] MEDICINE [address] [place] [address] Yanira Melissa FNP [address] [place] [address] documented as of this encounter Visit Diagnoses Not on filedocumented in this encounter Care Teams Group Therapy Counselor Relationship Specialty Start Date End Date Yanira Melissa FNP [address] [place] [address] PCP - General Family Medicine 03/17/25 documented as of this encounter
--- OUTSIDE RECORDS SUMMARY | 2025-07-20 10:45 | XMS_ITS | Encounter Summary ---
Author Organization [employer] Address [address] [facility] 7t [place] [address] Care Team Providers Care Retail Team Member Name Role Phone Yanira Melissa [facility] Primary Care Provider [phone] Reason for Visit * Reason Onset Date Comments Medication Question 07/19/2025 Encounter Details Date Type Department Care Team ([facility] st Contact Info) Description 07/19/2025 Telephone [facility] MEDICINE [address] [place], [place] [phone] Yanira Melissa FNP [address] [place] [address] Medication Question Social History Tobacco Use Types Packs/Day Years [...] Encounter - Codie Paul RN - 07/19/2025 9:20 AM EDT Combined with other encounter dated 07/19/25. * Telephone Encounter - Cynthia Estrada - 07/19/2025 8:30 AM EDT Tc from pt stating that during walk I visit on 07/06 a medication was going to be prescribed, but ptnever got the medication Constant pt at [phone]/medical interpreter documented in this encounter Plan of Treatment Upcoming Encounters Date Type Department Care Team (Late st Contact Info) Description 07/23/2025 11:15 AM EDT Office Visit [facility] OPTOMETRY [address] [place] [address] TarkaChen, OD [address] [place] [address] 07/29/2025 8:00 AM EDT Office Visit [facility] ADULT DENTAL [address] [place] [address] Maritza Givens 08/09/2025 10:00 AM EDT Office Visit [facility] ADULT DENTAL [address] [place] [address] Tavia Mullins, DDS [address] [place] [address] 08/10/2025 10:00 AM EDT Office Visit [facility] MEDICINE [address] [place] [address] Yanira Melissa FNP [address] [place], [place] [phone] documented as of this encounter Visit Diagnoses Not on filedocumented in this encounter Additional Health Concerns Assessment Noted Time PHQ-9 Depression Total Score: 4 04/28/20 25 9:30 AM EDT documented as of this encounter Care Teams Retail Team Member Relationship Specialty Start Date End Date Yanira Melissa FNP [address] [place] [address] PCP - General Family Medicine 03/17/25 documented as of this encounter
--- OUTSIDE RECORDS SUMMARY | 2025-07-20 10:45 | XMS_ITS | Clinical Summary ---
Author Organization [employer] Address [address] [facility] 7[address] [place] [address] Care Team Providers Care Wilton Weaver Name Role Phone Yanira Melissa [facility] Primary Care Provider [phone] Allergies No known active allergies Medications famotidine (Pepcid) 20 MG tablet Take 1 tablet (20 mg) by mouth 2 times daily. 60 tablet 12/15/19 25 026 Active docusate sodium (Colace) 100 MG capsule Take 1 capsule (100 mg) by mouth 2 times daily. 180 capsule 1 12/25/19 25 026 Active polycarbophil (Fibercon) 625 MG tablet Take 1 tablet (625 mg) by mouth 2 times daily. 180 tablet 1 12/25/19 25 026 Active triamcinolone (Kenalog) 0.1 % creamIndication s:Seborrheic dermatitis Apply topically if needed in the morning and at bedtime for rash. 45 g 2 04/07/20 25 Active ketoconazole (NIZOral) 2 % shampooIndicati ons:Seborrheic dermatitis Apply topically 2 (two) times a week. As shampoo 120 mL 04/08/20 25 Active ketoconazole (NIZOral) 2 % creamIndication s:Seborrheic dermatitis Apply topically 2 times daily. 60 g 1 04/07/20 25 Active loratadine (Claritin) 10 MG tablet Take 1 tablet (10 mg) by mouth Once per day. 30 tablet 3 06/15/20 25 026 Active amitriptyline (Elavil) 10 MG tablet Take 1 tablet (10 mg) by mouth at bedtime. 30 tablet 3 06/15/20 25 026 Active SUMAtriptan (Imitrex) 25 MG tablet Take 1 tablet (25 mg) by mouth 1 (one) time if needed for migraine. May repeat dose once in 2 hours if no relief. Do not exceed 2 doses in 24 hours. 9 tablet 3 06/15/20 25 026 Active baclofen (Lioresal) 10 MG tablet Take 1 tablet (10 mg) by mouth if needed in the morning, at noon, and at bedtime for muscle spasms. 60 tablet 1 06/15/20 25 025 Active naproxen (Naprosyn) 500 MG tablet Take 1 tablet (500 mg) by mouth if needed in the morning and at bedtime for mild pain. 40 tablet 1 06/15/20 25 026 Active diphenhydrAMINE (BENADryl) 25 MG capsuleIndicati ons:Local reaction to influenza vaccine, initial encounter Take 1 capsule (25 mg) by mouth every 8 (eight) hours if needed for itching. 30 capsule 07/08/20 25 026 Active Diclofenac Sodium 1 % gel Apply 2 g topically if needed in the morning, at noon, in the evening, and at bedtime (pain). 150 g 3 07/13/20 25 Active ibuprofen 600 MG tabletIndicatio ns:Secondary dental caries,Encounte r for dental examination Take 1 tablet (600 mg) by mouth every 6 (six) hours if needed for mild pain for up to 20 doses. 20 tablet 10/30/19 25 025 Discontinued(Th erapy completed) Diclofenac Sodium 1 % gel Apply 2 g topically if needed in the morning, at noon, in the evening, and at bedtime (pain). 150 g 3 06/15/20 25 025 Discontinued(Re order (will not trigger notification to Pharmacy)) cephalexin (Keflex) 500 MG capsuleIndicati ons:Cellulitis of left upper extremity Take 1 capsule (500 mg) by mouth 3 times daily for 7 days. 21 capsule 07/08/20 25 025 Active Problems Problem Noted Date Diagnosed Date Nonintractable chronic migraine 06/15/2025 Seborrheic dermatitis 04/09/2025 Secondary dental caries 10/30/2024 Resolved Problems Problem Noted Date Diagnosed Date Resolved Date Encounter for dental examination 10/30/2024 06/15/2025 Encounters Date Type Department Care Team Description 07/20/2025 Results Follow-Up [facility] [address] [place] [address] Cindy Pacheco MD POCT Urinalysis, Bacterial Vaginosis Panel, Chlamydia/N. Gonorrhoeae RNA, TMA, Vaginal, Culture, Urine, Routine 07/19/2025 3:00 PM EDT Office Visit [facility] [address] [place] [phone] Tavia Mullins, DDS Dental caries (Primary Dx) 07/19/[address] [address] Yanira Melissa FNP Medication Question 07/19/[address] [address] Yanira Melissa FNP Results 07/16/2025 1:40 PM EDT Office Visit [facility] [address] [place] [address] Cindy Pacheco MD Gross hematuria (Primary Dx) 07/16/2025 Travel 07/16/[address] [address] Yanira Melissa FNP Nurse Triage 07/13/2025 9:00 AM EDT Office Visit [address] [address] Yanira Melissa FNP Nonintractable chronic migraine (Primary Dx); Neck pain 07/13/2025 Travel 07/12/2025 Telephone [facility] [address] [place] [address] Yanira Melissa FNP Chart Prep 07/08/2025 2:00 PM EDT Office Visit [facility] [address] [address] Huma Gupta MD Local reaction to influenza vaccine, initial encounter (Primary Dx); Adverse reaction to COVID-19 vaccine; Cellulitis of left upper extremity 07/08/2025 Travel 07/08/[address] [place] [address] Yanira Melissa FNP Nurse Triage 06/24/[address] [place] [address] Yanira Melissa FNP Nurse Triage 06/15/2025 11:45 AM EDT Office Visit [address] [place] [address] Minna Parmar DO Acute intractable headache, unspecified headache type (Primary Dx); Neck pain 06/15/2025 Travel 06/15/[address] [place] [address] Yanira Melissa FNP Nurse Triage 2025 3:00 PM EDT Office Visit [facility] [address] [place] [address], [place] [address] Vazquez-Royal , Tavia, DDS Full coverage crown needed for tooth at risk for fracture (Primary Dx) 05/27/[address] [facility] [address] [place] [address] Vazquez-Royal , Tavia, DDS 05/05/[address] [facility] [address] [place] [address] Vazquez-Royal , Tavia, DDS 05/05/2025 Results Follow-Up [address] [place] [address] Aisha Rodriguez CNP Pap Smear 04/28/2025 9:00 AM EDT Procedure Visit [address] [address] Aisha Rodriguez CNP Routine cervical smear (Primary Dx); Cyclical mastalgia 04/28/2025 Orders Only [address] [place] [address] Aisha Rodriguez CNP 04/28/2025 Travel 04/27/[address] [address] Yanira Melissa FNP CHART PREP from Last 3 Months Family History Medical History Relation Name Comments Hypertension Mother Relation Name Status Comments Mother Social History Tobacco Use Types Packs/Day Years Used Date Smoking Tobacco: Never Passive Smoke Exposure: Never Smokeless Tobacco: Never Tobacco Cessation:Counseling Given: Not Answered Alcohol Use Standard Drinks/Week Comments Never 0 [...] Q2 Not on file 03/09/2025 Comments No Intention Date Recorded No desire to become [...] Pressure 124/78 07/19/2025 2:17 PM EDT Pulse 72 07/16/2025 1:41 PM EDT Temperature 36.6 C (97.8 F) 07/16/2025 1:41 PM EDT Respiratory Rate 14 07/13/2025 8:58 AM EDT Oxygen Saturation 97% 07/16/2025 1:41 PM EDT Inhaled Oxygen Concentration - - Weight 72.3 kg (159 lb 6.4 oz) 07/16/2025 1:41 P M EDT Height 162 cm (5' 3.78 ) 07/13/2025 8:58 AM EDT Body Mass Index 27.55 07/13/2025 8:58 AM EDT Plan of Treatment Upcoming Encounters Date Type Department Care Team (Late st Contact Info) Description 07/23/2025 11:15 AM EDT Office Visit [facility] [address] [place] [address] Chen Sewell, OD [address] [place] [address] 07/29/2025 8:00 AM EDT Office Visit [facility] [address] [place] [address] Maritza Givens 08/09/2025 10:00 AM EDT Office Visit [facility] [address] [place] [address] Tavia Mullins, DDS [address] [place] [address] 08/10/2025 10:00 AM EDT Office Visit [facility] [address] [place] [address] Yanira Melissa, CITY DRIVER [address] [place] [address] Health Maintenance Due Date Last Done Comments Dental Prophylaxis 1981 HPV Vaccines (1 - 3-dose series) 1996 DTaP/Tdap/Td Vaccines (1 - Tdap) 2000 Hepatitis B Vaccines (1 of 3 - 19+ 3-dose series) 2000 Dental Oral Exam 08/05/2025 02/02/2025 Dental X-Ray: Bitewings 02/03/2026 02/02/2025 SDOH Screening 03/09/2026 03/09/2025 Alcohol/Substance Use Screening 03/17/2026 03/17/2025 Disability Screening 03/17/2026 03/17/2025 Depression Screening 04/28/2026 04/28/2025, 04/28/2025 Family Planning (PISQ) 04/28/2026 04/28/2025 Tobacco Screening 07/19/2026 07/19/2025 Mammogram 07/10/2027 07/10/2025 Dental X-Ray: Full Mouth 02/04/2028 02/02/2025 Pap Smear 04/28/2028 04/28/2025 Cervical Cancer Screening 04/28/2030 HPV/Cotest 04/28/2030 04/28/2025 Zoster Vaccines (1 of 2) 2031 RSV Patients and Patients Aged 60 years or older (1 - 1-dose 75+ series) 2056 HIV Screening Completed 03/17/2025 Hepatitis C Screening Completed 03/17/2025 COVID-19 Vaccine Completed 07/06/2025 Influenza Vaccine Completed 07/06/2025 HIB Vaccines Aged Out No longer eligi [...] Routine 07/19/2025 3:00 PM EDT Dental caries 28 DO RESIN-BASED COMPOSITE - 2 SURF, POSTERIOR Routine 07/19/2025 3:00 PM EDT Dental caries CULTURE, URINE, ROUTINE Routine 07/16/2025 2:50 PM EDT Gross hematuria CHLAMYDIA/N. GONORRHOEAE RNA, TMA, UROGENITAL Routine 07/16/2025 2:50 PM EDT Gross hematuria BACTERIAL VAGINOSIS PANEL Routine 07/16/2025 2:50 PM EDT Gross hematuria POCT URINALYSIS DIPSTICK Routine 07/16/2025 2:17 PM EDT Gross hematuria BI MAMMOGRAM SCREENING TOMOSYNTHESIS BILATERAL Routine 07/10/2025 8:15 AM EDT Adult wellness visit CASE PRESENTATION, DETAILED AND EXTENSIVE TREATMENT PLANNING Routine 2025 3:00 PM EDT Full coverage crown needed for tooth at risk for fracture INTRAORAL - PERIAPICAL FIRST RADIOGRAPHIC IMAGE Routine 2025 3:00 PM EDT Full coverage crown needed for tooth at risk for fracture 8 CROWN - PORCELAIN/CERAMIC Routine 2025 3:00 PM EDT Full coverage crown needed for tooth at risk for fracture PAP SMEAR Routine 04/28/2025 9:47 AM EDT Routine cervical smear HPV DNA, LOW/HIGH RISK Routine 9:47 AM EDT HEPATITIS C AB W/REFL TO HCV RNA, QN, PCR Routine 03/17/2025 3:48 PM EDT Adult wellness visit HIV 1/2 ANTIGEN/ANTIBODY, FOURTH GENERATION W/RFL Routine 03/17/2025 3:48 PM EDT Adult wellness visit INTRAORAL - COMPLETE SERIES OF RADIOGRAPHIC IMAGES Routine 02/02/2025 8:00 AM EDT COMPREHENSIVE ORAL EVALUATION - NEW OR ESTABLISHED PATIENT Routine 02/02/2025 8:00 AM EDT from Last 3 Months or Most Recently Relevant to Health Maintenance Results * Bacterial Vaginosis Panel (07/16/2025 2:50 PM EDT) TRICHOMONAS VAGINALIS DETECTION BY PCR NOT DETECTED Not Detect [facility] BACTERIAL VAGINOSIS DETECTION BY PCR NEGATIVE Negative [facility] Comment:The BV organism targ ets of [...] BY PCR NOT DETECTED Not Detect [facility] Suzi glab krusei PCR NOT DETECTED Not Detect [facility] Swab Vaginal structure / Unknown 07/16/2025 2:50 PM EDT 07/16/2025 4:28 PM EDT us Cindy Pacheco MD LAB MICROBIOLOGY - GENERAL OR DERABLES Final Result [facility] [address] [place] [address] [phone] * Chlamydia/N. Gonorrhoeae RNA, TMA, Vaginal (07/16/2025 2:50 PM EDT) CT PCR NOT DETECTED Not Detect. [facility] Comment:A not detected test result [...] NG PCR NOT DETECTED Not Detect. [facility] Comment:A not detected test result [...] 2:50 PM EDT 07/16/2025 4:28 PM EDT Cindy Pacheco MD LAB MICROBIOLOGY - GENERAL OR DERABLES Final Result Performing Organization Address [facility] Co de Phone Number [facility] [address] [place] [phone] * Culture, Urine, Routine (07/16/2025 2:50 PM EDT) Urine Urine specimen obtained by clean catch procedure / Unknown 07/16/2025 2:50 PM EDT 07/16/2025 4:02 PM EDT Comment:UACC Narrative [facility] - 07/18/2025 10:37 AM EDT Lactobacillus species Quant > 100,000 cfu/mL Susc N/A Susceptibility not routinely performed on this isolate. Specimen Source: Urine clean catch Cindy Pacheco MD LAB MICROBIOLOGY - GENERAL OR DERABLES Final Result Performing Organization Address [facility] de Phone Number [facility] [address] [place] [phone] * (ABNORMAL) POCT Urinalysis (07/16/2025 2:17 [...] Appearance, UA CLEAR QC Media Lot # [id number] Lot# Expiration Date [id number] Urine 07/16/2025 2:17 PM EDT Cindy Pacheco MD POINT OF CARE TEST ENTER/EDIT ORDERABLES Final Result * BI Mammogram Screening Tomosynthesis Bilateral (07/10/2025 8:15 AM EDT) Anatomical Region Laterality Modality Breast Bilateral Mammography 07/10/2025 8:15 AM EDT Narrative 07/13/2025 10:52 AM EDT [facility] [address] [place] [address] Mammography Report Signed Patient: Hailey Bunch MR#: [id number] : 1980 Acct:[id number] Age/Sex: 45 / F ADM Date: 07/10/25 Loc: KARI Attending Dr: Yanira VALDEZ Ordering Physician: Yanira Melissa Results: 1Negat león Date of Service: 07/10/25 Follow Up: 1 Year From [facility] Mammogram Procedure(s): MM tomosynthesis screening BI Accession Number(s): [id number] cc: Yanira Melissa Reason For Exam: Routine screening EXAMINATION: MM SCREENING DIGITAL BREAST TOMOSYNTHESIS, BILATERAL CLINICAL INFORMATION: Screening. Asymptomatic. COMPARISON: None. This is a baseline study. TECHNIQUE: Digital breast tomosynthesis is performed in mediolateral oblique and craniocaudal views along with computer-aided detection (CAD). Synthesized 2D images are generated from the tomosynthesis. FINDINGS: BREAST COMPOSITION: The breasts are heterogeneously dense, which may obscure small masses (ACR BI-RADS breast composition Category c). BILATERAL BREASTS: No significant masses, suspicious calcifications or other abnormalities are seen in either breast. MM/MM tomosynthesis screening BI IMPRESSION: BILATERAL BREASTS: Negative, no mammographic evidence of malignancy. Normal interval follow-up is recommended in 12 months. ASSESSMENT: BI-RADS 1 - Negative RECOMMENDATION: Routine annual mammography screening. FOLLOW-UP: 1 year F/U This examination should not preclude the clinical evaluation of a suspicious palpable abnormality. This patient's information was entered into a reminder system with a target due date for their next mammogram. Electronically signed by: Eusebia Sellers MD 07/13/2025 10:49 AM EDT RP Dictated By: Eusebia Sellers MD Signed By: <Electronically signed by Eusebia Sellers MD in OV> 07/13/25 1049 DD/ 08 TD/TT: 07/10/25825 Twisting Machine Operator: Procedure Note Donotuseinterpreter, Image - 07/13/2025 [facility] [address] [place] [address] Mammography Report Signed Patient: Hailey BunchMR#: [id number] : 1980Acct:[id number] Age/Sex: 45 / FADM Date: 07/10/25 Loc: KARI Attending Dr: Yanira VALDEZ Ordering Physician: Yanira Melissa FNPResults: 1Negat león Date of Service: 07/10/25Follow Up: 1 Year From [facility] Mammogram Procedure(s): MM tomosynthesis screening BI Accession Number(s): [id number] cc: Yanira Melissa Reason For Exam: Routine screening EXAMINATION: MM SCREENING DIGITAL BREAST TOMOSYNTHESIS, BILATERAL CLINICAL INFORMATION: Screening. Asymptomatic. COMPARISON: None. This is a baseline study. TECHNIQUE: Digital breast tomosynthesis is performed in mediolateral oblique and craniocaudal views along with computer-aided detection (CAD). Synthesized 2D images are generated from the tomosynthesis. FINDINGS: BREAST COMPOSITION: The breasts are heterogeneously dense, which may obscure small masses (ACR BI-RADS breast composition Category c). BILATERAL BREASTS: No significant masses, suspicious calcifications or other abnormalities are seen in either breast. MM/MM tomosynthesis screening BI IMPRESSION: BILATERAL BREASTS: Negative, no mammographic evidence of malignancy. Normal interval follow-up is recommended in 12 months. ASSESSMENT: BI-RADS 1 - Negative RECOMMENDATION: Routine annual mammography screening. FOLLOW-UP: 1 year F/U This examination should not preclude the clinical evaluation of a suspicious palpable abnormality. This patient's information was entered into a reminder system with a target due date for their next mammogram. Electronically signed by: Eusebia Sellers MD 07/13/2025 10:49 AM EDT Workstation: [email or web address] Dictated By: Eusebia Sellers MD Signed By: <Electronically signed by Eusebia Sellers MD in OV> 07/13/25 1049 DD/ 0815 TD/TT: 07/10/25 0826 Twisting Machine Operator: Yanira Melissa [facility] IM BI PROCEDURES Final Result * HPV DNA, Low/High Risk (04/28/2025 9:47 AM EDT) HPV High Risk Negative Negative [facility] HPV Genotype 16 Negative Negative [facility] HPV Genotype 18 Negative Negative [facility] Comment:HPV testing performe d at [facility] (CLIA#[id number]), [address] [place] [address].Testing for HPV was performed using the Toney GODFREY 6800system. The presence of HPV in the female genital tract isassociated with a number of diseases, including cervicalcarcinoma. The HPV DNA high risk pool tests for HPV 31, 33,35, 39, 45, 51, 52, 56, 58, 59, 66 and 68. The testing forHPV 16 and 18 genotypes has also been performed. A positiveresult indicates detection of nucleic acid sequences fromone or more subtypes, whereas a negative result indicatessuch sequences were not detected. 04/28/2025 9:47 AM EDT 04/29/2025 8:00 AM EDT Aisha Rodriguez VICE PRESIDENT NETWORK LAB BLOOD ORDERABLES Christa terrell Result [facility] [address] [place] [phone] * Pap Smear (04/28/2025 9:47 AM EDT) Swab Cervix uteri structure / Unknown 04/28/2025 9:47 AM EDT 04/29/2025 8:00 AM EDT Narrative [facility] - 04/30/2025 3:19 PM EDT ----- ------- Name: Hailey Bunch Age/Sex: 44/F : 1980 Unit#: [id number] Attend Dr: Aisha Rodriguez Re04/28/25 Status: BRYAN [facility] Disch: ----- ------- SPEC : [id number] RECD: 04/29/25 STATUS: DULCE FITZGERALD NUM: [id number] MARSHALL: 04/28/[address]: Aisha Rodriguez ENTERED: 04/29/25 SP TYPE: Pap Smr OTHR DR: ORDERED: Pap Smear Interpretation Satisfactory for evaluation. Negative for intraepithelial lesion or malignancy. HPV High Risk: Negative HPV Genotyping 16: Negative HPV Genotyping 18: Negative Clinical Information LMP: Unknown date Previous PAP test: Unknown date/findings Other history: Routine cervical smear Material Received ThinPrep-Cervical PAP Disclaimer As of August 12, 2024, the technical services to include automated prescreening performed by the ThinPrep Imaging System, PAP screening and HPV testing will be performed at [facility] (CLIA #[id number]), [address] [place] [address]. Testing for HPV was performed using the [employer] system. The presence of HPV in the female genital tract is associated with a number of diseases, including cervical carcinoma. The HPV DNA high risk pool tests for HPV 31, 33, 35, 39, 45, 51, 52, 56, 58, 59, 66 and 68. The testing for HPV 16 and 18 genotypes has also been performed. A positive result indicates detection of nucleic acid sequences from one or more subtypes, whereas a negative result indicates such sequences were not detected. All professional services are performed by [facility] ([address] [place] [address]; ; CLIA #[id number]). The PAP Test is a screening procedure with the inherent possibility of both false negative and false positive results. Results should be interpreted in the context of historic and current clinical findings. Reliability of the PAP Test is enhanced by performing the test on a regular repetitive basis. ----- ------- Signed (signature on file) ZULAY Roman ([facility]) 04/30/25 1519 ----- ------- END OF REPORT Aisha Rodriguez [facility] LAB CYTOLOGY ORDERABLES F inal Result Performing Organization Address City/[facility]/ZIP Co de Phone Number [facility] [address] [place] [address] [phone] * Hepatitis C Antibody with Reflex to HCV, RNA, Quantitative, Real-Time PCR (03/17/2025 3:48 PM EDT) Hepatitis C Antibody Nonreactive Nonreactive [facility] Comment:Antibodies to HCV no t detected; does not exclude early acuteHCV infection. Blood Venous blood specimen / Unknown 03/17/2025 3:48 PM EDT 03/17/2025 4:12 PM EDT Yanira Melissa [facility] LAB BLOOD ORDERABLES Final Res ult Performing Organization Address [facility] Co de Phone Number [facility] [address] [place] [phone] [phone] * HIV-1/2 Antigen and Antibodies, Fourth Generation, with Reflexes (03/17/2025 3:48 PM EDT) HIV AB/AG Nonreactive Nonreactive [facility] Comment:HIV-1 p24 Ag and/or HIV-1/HIV-2 Ab not detected.A test result that is nonreactive does not exclude thepossibility of exposure to or infection with HIV-1 and/orHIV-2. Nonreactive results in this assay for individualswith prior exposure to HIV-1 and/or HIV-2 may be due toantigen and antibody levels that are below the limit ofdetection of this assay.The [employer] HIV Ag/Ab Combo assay result andsupplemental assay results should be interpreted inconjunction with the patient's clinical presentation,history and other laboratory results. If the results areinconsistent with clinical evidence, additional testing issuggested to confirm the result. Blood Venous blood specimen / Unknown 03/17/2025 3:48 PM EDT 03/17/2025 4:12 PM EDT Yanira Melissa CITY DRIVER LAB BLOOD ORDERABLES Final Res ult [facility] [address] [place] [phone] from Last 3 Months or Most Recently Relevant to Health Maintenance [place] Care Teams Wilton Weaver Relationship Specialty Start Date End Date Yanira Melissa FNP [address] [place] [phone] PCP - General Family Medicine 03/17/25
[2025-07-20 11:32] LABS: Appearance Urine Turbid; Glucose Urine UA Negative (Negative); PH 5.5 (5.0-9.0); Specific Gravity - Urine 1.025 (1.005-1.025); UMIC TRIGGER UACC YES
== END 2025-07-20 09:52 | disposition home or self-care (01) ==
LOC: HO.HHCL 09:51
PROVIDERS: PCP Nurse Practitioner Family; Visit Provider Internal Medicine
DX: R31.0 Gross hematuria (principal)
CPT/HCPCS: 81001

== ENCOUNTER 2025-07-21 10:13 | Outpatient (REF) | payer MEDICAID, SELFPAY ==
--- OUTSIDE RECORDS SUMMARY | 2025-07-16 13:40 | XMS_ITS | Encounter Summary ---
Author Organization [employer] Address [address] [place] [address] Care Team Providers Care Painting Technician Name Role Phone Yanira Melissa LEGAL OFFICE ADMINISTRATOR Primary Care Provider [phone] Reason for Visit * Reason Comments Blood in Urine Encounter Details Date Type Department Care Team ([facility] st Contact Info) Description 07/16/2025 1:40 PM EDT Office Visit [facility] [address] [place] [address] Cindy Pacheco MD [address] [place] [address] Gross hematuria (Primary Dx) Social History Tobacco Use Types [...] Access Q2 Not on file 03/09/2025 Comments No Sex and Gender Information Value Date Recorded Sex Assigned at Female 10/30/2024 10:58 AM EST Legal Sex Female 3:06 PM EST Gender Identity Female 10/30/2024 10:58 AM EST Sexual Orientation Straight 10/30/2024 10 :58 AM EST documented as of this encounter Last Filed Vital Signs Vital Sign Reading Time Taken Comments Blood Pressure 127/82 07/16/2025 1:41 PM EDT Pulse 72 07/16/2025 1:41 PM EDT Temperature 36.6 C (97.8 F) 07/16/2025 1:41 PM EDT Respiratory Rate - - Oxygen Saturation 97% 07/16/2025 1:41 PM EDT Inhaled Oxygen Concentration - - Weight 72.3 kg (159 lb 6.4 oz) 07/16/2025 1:41 P M EDT Height - - Body Mass Index 27.55 07/13/2025 8:58 AM EDT documented in this encounter Progress Notes * Cindy Pacheco MD - 07/16/2025 1:40 PM EDT SUBJECTIVE Hailey Mayer is a 45 y.o. female patient of COURTNEY Matta who presents for blood in urine. SUJATA Hart was well until this morning when she urinated and noticed her urine was very red. It was not painful to urinate and she is not urinating frequently. She has never had a kidney stone or kidneyproblems. She says her LMP was about 2 weeks ago. Notes some possibly vaginal discharge but no vaginal itch or pain with intercourse. Has some mild abdominal pain. Review of Systems Constitutional: Negative for chills and fever. Gastrointestinal: Positive for abdominal pain (mild) and constipation. Negative for blood in stool,diarrhea and rectal pain. Genitourinary: Positive for hematuria, pelvic pain and vaginal discharge. Negative for decreased urine volume, difficulty urinating, dyspareunia, dysuria, flank pain, frequency, menstrual problem, urgency, vaginal bleeding and vaginal pain. OBJECTIVE Physical Exam Constitutional: Appearance: She is not toxic-appearing. HENT: Head: Normocephalic and atraumatic. Mouth/Throat: Mouth: Mucous membranes are moist. Eyes: Conjunctiva/sclera: Conjunctivae normal. Pupils: Pupils are equal, round, and reactive to light. Cardiovascular: Rate and Rhythm: Normal rate and regular rhythm. Pulmonary: Effort: Pulmonary effort is normal. Abdominal: General: Abdomen is flat. Bowel sounds are normal. Palpations: Abdomen is soft. There is no mass. Tenderness: There is abdominal tenderness (mild in epigastrium and RLQ). There is no right CVA tenderness, left CVA tenderness, guarding or rebound. Musculoskeletal: Right lower leg: No edema. Left lower leg: No edema. Skin: Capillary Refill: Capillary refill takes less than 2 seconds. Neurological: General: No focal deficit present. Mental Status: She is alert. Psychiatric: Mood and Affect: Mood normal. Behavior: Behavior normal. Assessment/Plan Assessment/Plan Diagnoses and all orders for this visit: Gross hematuria: UA today shows small blood and protein but is otherwise normal. Has mild pelvic tenderness on right side. Differential diagnosis includes nephrolithiasis, vaginal bleeding, UTI, STI. Encouraged her to drink 2L water daily for the next few days. Will run UCX and check vaginal swabs. - POCT Urinalysis - Culture, Urine, Routine; Future - Bacterial Vaginosis Panel - Chlamydia/N. Gonorrhoeae RNA, TMA, Vaginal Future Appointments Date Time Provider Department Center 07/19/2025 3:00 PM Tavia Mullins DDS ADLT DENT [facility] 07/23/2025 11:15 AM Chen Sewell OD VISION [facility] 07/29/2025 8:00 AM Maritza Givens ADLT DENT [facility] 08/10/2025 10:00 AM COURTNEY Matta MEDICINE [facility] documented in this encounter Plan of Treatment Upcoming Encounters Date Type Department Care Team ([facility] st Contact Info) Description 07/23/2025 11:15 AM EDT Office Visit [facility] OPTOMETRY [address] [place] [address] Chen Sewell, OD [address] [place] [address] 07/29/2025 8:00 AM EDT Office Visit [facility] ADULT DENTAL [address] [place] [address] Givens, Maritza 08/09/2025 10:00 AM EDT Office Visit [facility] AD[facility] [address] [place] [address] Vazquez-Royal, Tavia, DDS [address] [place] [address] 08/10/2025 10:00 AM EDT Office Visit [facility] MEDICINE [address] [place] [address] Okorquideao Yanira, LEGAL OFFICE ADMINISTRATOR [address] [place] [address] documented as of this encounter Procedures Procedure Name Priority Date/Time Associated Diagnosis Comments BACTERIAL VAGINOSIS PANEL Routine 07/16/2025 2:50 PM EDT Gross hematuria CHLAMYDIA/N. GONORRHOEAE RNA, TMA, UROGENITAL Routine 07/16/2025 2:50 PM EDT Gross hematuria CULTURE, URINE, ROUTINE Routine 07/16/2025 2:50 PM EDT Gross hematuria POCT URINALYSIS DIPSTICK Routine 07/16/2025 2:17 PM EDT Gross hematuria documented in this encounter Results * Chlamydia/N. Gonorrhoeae RNA, TMA, Vaginal (07/16/2025 2:50 PM EDT) CT PCR NOT DETECTED Not Detect. [facility] Comment:A not detected test result does [...] psychologicalconsequences. NG PCR NOT DETECTED Not Detect. [facility] Comment:A not detected test result does [...] lead to adverse medical, social or psychologicalconsequences. Swab (Vaginal Swab) 07/16/2025 2:50 PM EDT 07/16/2025 4:28 PM EDT us Cindy Pacheco MD LAB MICROBIOLOGY - GENERAL OR DERABLES Final Result [facility] [address] [place] [phone] * Bacterial Vaginosis Panel (07/16/2025 2:50 PM EDT) TRICHOMONAS VAGINALIS DETECTION BY PCR NOT DETECTED Not Detect [facility] BACTERIAL VAGINOSIS DETECTION BY PCR NEGATIVE Negative [facility] Comment:The BV organism targ ets of the Xpert Xpress MVP test can becommensal in women; Xpert Xpress MVP positive results forbacterial vaginosis should be considered in conjunction withother clinical and patient information to determine thedisease status. Organisms that are not detected by the XpertXpress MVP test have also been reported to be associatedwith BV and aerobic vaginitis.The Xpert Xpress MVP test performance has not been evaluatedin patients under the age of 14. SUZI GROUP DETECTION BY PCR NOT DETECTED Not Detect [facility] Suzi glab krusei PCR NOT DETECTED Not Detect [facility] Swab Vaginal structure / Unknown 07/16/2025 2:50 PM EDT 07/16/2025 4:28 PM EDT us Cindy Pacheco MD LAB MICROBIOLOGY - GENERAL OR DERABLES Final Result Performing Organization Address [facility] Co de Phone Number [facility] [address] [place] [phone] * Culture, Urine, Routine (07/16/2025 2:50 PM EDT) Urine Urine specimen obtained by clean catch procedure / Unknown 07/16/2025 2:50 PM EDT 07/16/2025 4:02 PM EDT Comment:UACC Narrative [facility] - 07/18/2025 10:37 AM EDT Lactobacillus species Quant > 100,000 cfu/mL Susc N/A Susceptibility not routinely performed on this isolate. Specimen Source: Urine clean catch us Cindy Pacheco MD LAB MICROBIOLOGY - GENERAL OR DERABLES Final Result Performing Organization Address [facility] Co de Phone Number [facility] [address] [place] [phone] * (ABNORMAL) POCT Urinalysis (07/16/2025 2:17 PM EDT) Color, UA Yellow Clarity, UA Clear Glucose, UA Negative Bilirubin, UA Trace Comment:SMALL Ketones, UA Negative Spec Grav, UA 1.030 Blood, UA Positive(A) Negative, None Detected Comment:SMALL pH, UA 6.0 Protein, UA Trace Urobilinogen, UA 1.0 Leukocytes, UA Negative Negative, Rare, Trace Nitrite, UA Negative Negative, None Detected Appearance, UA CLEAR QC Media Lot # [id number] Lot# Expiration Date 14,189 Urine 07/16/2025 2:17 PM EDT Cindy Pacheco MD POINT OF CARE TEST ENTER/EDIT ORDERABLES Final Result documented in this encounter Visit Diagnoses Diagnosis Gross hematuria- Primary documented in this encounter Additional Health Concerns Assessment Noted Time PHQ-9 Depression Total Score: 4 04/28/20 25 9:30 AM EDT documented as of this encounter Care Teams Painting Technician Relationship Specialty Start Date End Date Yanira Melissa FNP [address] [place] [phone] PCP - General Family Medicine 03/17/25 documented as of this encounter
--- OUTSIDE RECORDS SUMMARY | 2025-07-19 15:00 | XMS_ITS | Encounter Summary ---
Author Organization [employer] Address [address] [facility] 7t [place] [address] Care Team Providers Care Local Superintendent Name Role Phone Yanira Melissa INTERVENTIONAL TECHNOLOGIST Primary Care Provider [phone] Reason for Visit * Reason Comments Filling Encounter Details Date Type Department Care Team (Late st Contact Info) Description 07/19/2025 3:00 PM EDT Office Visit [facility] [address] [place], [place] [phone] Tavia Mullins DDS [address] [place], [place] [phone] Dental caries (Primary Dx) Social History Tobacco Use Types [...] Sign Reading Time Taken Comments Blood Pressure 124/78 07/19/2025 2:17 PM EDT Pulse - - Temperature - - Respiratory Rate - - Oxygen Saturation - - Inhaled Oxygen Concentration - - Weight - - Height - - Body Mass Index - - documented in this encounter Progress Notes * Tavia Mullins DDS - 07/19/2025 3:00 PM EDT Patient ID: Hailey Mayer is a 45 y.o. female. Time Out: Timeout Date: 07/19/25, Timeout Time: 141 (filling on tooth #28) Location: [facility] Tooth: #28 Procedure: Protestant Verified the above with patient, recreational assistant, and provider. Confirmed via patient's chart, intraorally and by radiographs. Radiologist Chief Of Breast Imaging: not applicable Chief Complaint Patient presents with Filling Medical Hx: Vitals: Blood pressure 124/78, last menstrual period 07/03/2025. Medications, Med Hx reviewed with patient and updated in chart. Consent Obtained: The risks, benefits, indications, potential complications, and alternatives were explained to the patient and informed consent was obtained with good understanding. Treatment Provided: Dental procedures in this visit D2392 - RESIN-BASED COMPOSITE - 2 SURF, POSTERIOR 28 DO (Completed) Service provider: Tavia Mullins DDS Billing provider: Tavia Mullins DDS [id number] - CASE PRESENTATION, DETAILED AND EXTENSIVE TREATMENT PLANNING (Completed) Service provider: Tavia Mullins DDS Billing provider: Tavia Mullins DDS Diagnosis: dental caries Topical: 20% Benzocaine Anesthesia: 2% Lidocaine (Xylocaine) w/ 1:100,000 epinephrine Number of Cartridges: 1 Injection Type: Buccal infiltration, Long buccal nerve block, and LI nerve infiltration Confirmed profound anesthesia. Isolation: cotton rolls and high speed suction Prep: All caries removed and Preparation finalized Matrix: Tofflemire and wedge Etch: 37% Phosphoric Acid Etch Desensitizer: Gluma Liner/Base: None Boss: I-Boss Protestant Material: Filtek Kings Flowable Composite and Paradigm Composite Shade: A3 Polished. Occlusion & contacts verified. Patient satisfied with comfort and esthetics. Patient tolerated procedure well. Post-operative instructions were given. Patient departed alert, oriented, and in stable condition. NV: Impression lower RPD Pot Runner: Minna Livingston Dentist: Tavia Mullins DDS documented in this encounter Plan of Treatment Upcoming Encounters Date Type Department Care Team (Late st Contact Info) Description 07/23/2025 11:15 AM EDT Office Visit [facility] OPT[facility] [address] [place] [address] Chen Sewell, OD [address] [place] [address] 07/29/2025 8:00 AM EDT Office Visit [facility] ADULT [facility] [address] [place] [address] Maritza Givens 08/09/2025 10:00 AM EDT Office Visit [facility] AD[facility] [address] [place] [address] Tavia Mullins DDS [address] [place] [address] 08/10/2025 10:00 AM EDT Office Visit [facility] [address] [place] [address] Yanira Melissa FNP [address] [place] [address] documented as of this encounter Procedures Procedure Name Priority Date/Time Associated Diagnosis Comments 28 DO RESIN-BASED COMPOSITE - 2 SURF, POSTERIOR Routine 07/19/2025 3:00 PM EDT Dental caries CASE PRESENTATION, DETAILED AND EXTENSIVE TREATMENT PLANNING Routine 07/19/2025 3:00 PM EDT Dental caries documented in this encounter Visit Diagnoses Diagnosis Dental caries- Primary Unspecified dental caries documented in this encounter Additional Health Concerns Assessment Noted Time PHQ-9 Depression Total Score: 4 04/28/20 9:30 AM EDT documented as of this encounter Care Teams Local Superintendent Relationship Specialty Start Date End Date Yanira Melissa FNP [address] [place] [address] PCP - General Family Medicine 03/17/25 documented as of this encounter
--- OUTSIDE RECORDS SUMMARY | 2025-07-21 11:29 | XMS_ITS | Encounter Summary ---
Author Organization [employer] Address [address] [facility] 7t [place] [address] Care Team Providers Care Powerhouse Laborer Name Role Phone Yanira Melissa [facility] Primary Care Provider [phone] Reason for Visit * Reason Onset Date Comments Medication Question 07/19/2025 Encounter Details Date Type Department Care Team (Late st Contact Info) Description 07/19/2025 Telephone [facility] [address] [place] [address] Yanira Melissa FNP [address] [place] [address] Medication Question Social History Tobacco Use Types [...] ptnever got the medication Constant pt at [phone] Need drafting clerk documented in this encounter Plan of Treatment Upcoming Encounters Date Type Department Care Team (Late st Contact Info) Description 07/23/2025 11:15 AM EDT Office Visit [facility] [address] [place] [address] TarkaChen, OD [address] [place] [address] 07/29/2025 8:00 AM EDT Office Visit [facility] [address] [place] [address] Maritza Givens 08/09/2025 10:00 AM EDT Office Visit [facility] [address] [place] [address] Tavia Mullins, DDS [address] [place] [address] 08/10/2025 10:00 AM EDT Office Visit [facility] [address] [place] [address] Yanira Melissa FNP [address] [place], [place] [phone] documented as of this encounter Visit Diagnoses Not on filedocumented in this encounter Additional Health Concerns Assessment Noted Time PHQ-9 Depression Total Score: 4 04/28/20 25 9:30 AM EDT documented as of this encounter Care Teams Powerhouse Laborer Relationship Specialty Start Date End Date Yanira Melissa FNP [address] [place] [phone] PCP - General Family Medicine 03/17/25 documented as of this encounter
--- OUTSIDE RECORDS SUMMARY | 2025-07-21 11:29 | XMS_ITS | Clinical Summary ---
Author Organization [employer] Address 75 [facility] 7t [place] [address] Care Team Providers Care Cutter V Groove Name Role Phone Yanira Melissa [facility] Primary Care Provider [phone] Allergies No known active allergies Medications famotidine [...] Department Care Team Description 07/20/2025 Results Follow-Up [facility] [address] [place] [address] Cindy Pacheco MD Urinalysis, Complete, with Reflex to Culture 07/20/[address] [facility] 505 [place] [address] Cindy Pacheco MD 07/20/2025 Results Follow-Up [facility] [address] [place] [address] Cindy Pacheco MD POCT Urinalysis, Bacterial Vaginosis Panel, Chlamydia/N. Gonorrhoeae RNA, TMA, Vaginal, Culture, Urine, Routine 07/19/2025 3:00 PM EDT Office Visit [facility] [address] [place] [address] Tavia Mullins, DDS Dental caries (Primary Dx) 07/19/[address] [address] Yanira Melissa FNP Medication Question 07/19/[address] [address] Yanira Melissa FNP Results 07/16/2025 1:40 PM EDT Office Visit [facility] [address] [place] [address] Cindy Pacheco MD Gross hematuria (Primary Dx) 07/16/2025 Travel 07/16/[address] [address] Yanira Melissa FNP Nurse Triage 07/13/2025 9:00 AM EDT Office Visit [address] [address] Yanira Melissa FNP Nonintractable chronic migraine (Primary Dx); Neck pain 07/13/2025 Travel 07/12/[address] [facility] [address] [place], [place] [phone] Yanira Melissa FNP Chart Prep 07/08/2025 2:00 PM EDT Office Visit [facility] [address] [place] [address] Huma Gupta MD Local reaction to influenza vaccine, initial encounter (Primary Dx); Adverse reaction to COVID-19 vaccine; Cellulitis of left upper extremity 07/08/2025 Travel 07/08/[address] [address] Yanira Melissa RESERVOIR CARETAKER Nurse Triage 06/24/[address] [address] Yanira Melissa FNP Nurse Triage 06/15/2025 11:45 AM EDT Office Visit [address] [address] Minna Parmar DO Acute intractable headache, unspecified headache type (Primary Dx); Neck pain 06/15/2025 Travel 06/15/[address] [address] Yanira Melissa FNP Nurse Triage 2025 3:00 PM EDT Office Visit [facility] [address] [place] [address] Vazquez-Royal , Tavia, DDS Full coverage crown needed for tooth at risk for fracture (Primary Dx) 05/27/[address] [facility] [address] [place] [address] Vazquez-Royal , Tavia, DDS 05/05/[address] [facility] [address] [place] [address] Vazquez-Royal , Tavia, DDS 05/05/2025 Results Follow-Up [address] [address] Aisha Rodriguez CNP Pap Smear 04/28/2025 9:00 AM EDT Procedure Visit [address] [address] Aisha Rodriguez CNP Routine cervical smear (Primary Dx); Cyclical mastalgia 04/28/[address] [facility] [address] [place] [address] Aisha Rodriguez CNP 04/28/2025 Travel 04/27/[address] [facility] 230 [place] [address] Yanira Melissa FNP CHART PREP from Last [...] 07/23/2025 11:15 AM EDT Office Visit [facility] [address] [place] [address] Tarka, Chen, OD [address] [place] [address] 07/29/2025 8:00 AM EDT Office Visit [facility] [address] [place] [address] Maritza Givens 08/09/2025 10:00 AM EDT Office Visit [facility] [address] [place] [address] Vazquez-RoyalTavia knox, DDS [address] [place] [address] 08/10/2025 10:00 AM EDT Office Visit [facility] [address] [place] [address] Yanira Melissa, RESERVOIR CARETAKER [address] [place] [address] Health Maintenance Due Date Last Done Comments [...] Procedure Name Priority Date/Time Associated Diagnosis Comments URINALYSIS, COMPLETE, WITH REFLEX TO CULTURE Routine 07/20/2025 10:15 AM EDT CASE PRESENTATION, DETAILED AND EXTENSIVE [...] Recently Relevant to Health Maintenance Results * (ABNORMAL) Urinalysis, Complete, with Reflex to Culture (07/20/2025 10:15 AM EDT) Color Urine Yellow [facility] Appearance Urine Turbid [facility] PH 5.5 5.0 - 9.0 [facility] Glucose Urine UA Negative Negative mg/dL [facility] Urine Blood Trace(A) Negative [facility] Specific Union - Urine 1.025 1.005 - 1.025 [facility] Urine Protein Negative Neg-Trace mg/dL [facility] Urine Ketones Negative Negative mg/dL [facility] Nitrite Urine Negative Negative [facility] Leukocyte Esterase Urine Negative Negative [facility] RBC Urine 0-2 0 - 2 /HPF [facility] Urine WBC 0-5 0 - 5 /HPF [facility] Urine Squamous Epithelial Cell 11-20 0 - 2 /HPF [facility] Urine Bacteria Trace None Seen [facility] Hyaline Casts, Urine 0-2 0 - 2 /LPF [facility] 07/20/2025 10:1 5 AM EDT 07/20/2025 11:23 AM EDT Narrative [facility] - 07/20/2025 11:44 AM EDT Urine, Clean Catch us Cindy Pacheco MD LAB URINE ORDERABLES Final Re sult [facility] [address] [place] [phone] * Bacterial Vaginosis Panel (07/16/2025 2:50 PM EDT) TRICHOMONAS VAGINALIS DETECTION BY PCR NOT DETECTED Not Detect [facility] BACTERIAL VAGINOSIS DETECTION BY PCR NEGATIVE Negative [facility] Comment:The BV organism targ ets [...] DETECTION BY PCR NOT DETECTED Not Detect [facility] Suzi glab krusei PCR NOT DETECTED Not Detect [facility] Swab Vaginal structure / Unknown 07/16/2025 2:50 PM EDT 07/16/2025 4:28 PM EDT us Cindy Pacheco MD LAB MICROBIOLOGY - GENERAL OR DERABLES Final Result [facility] [address] [place] [address] [phone] * Chlamydia/N. Gonorrhoeae RNA, TMA, Vaginal (07/16/2025 2:50 PM EDT) CT PCR NOT DETECTED Not Detect. [facility] Comment:A not detected test result [...] psychologicalconsequences. NG PCR NOT DETECTED Not Detect. [facility] Comment:A not detected test result [...] OR DERABLES Final Result Performing Organization Address [facility] Co de Phone Number [facility] [address] [place] [phone] * Culture, Urine, Routine (07/16/2025 2:50 PM EDT) Urine Urine specimen obtained by clean catch procedure / Unknown 07/16/2025 2:50 PM EDT 07/16/2025 4:02 PM EDT Comment:UACC Narrative [facility] - 07/18/2025 10:37 AM EDT Lactobacillus species Quant > 100,000 cfu/mL Susc N/A Susceptibility not routinely performed on this isolate. Specimen Source: Urine clean catch Cindy Pacheco MD LAB MICROBIOLOGY - GENERAL OR DERABLES Final Result Performing Organization Address [facility] Co de Phone Number [facility] [address] [place] [phone] * (ABNORMAL) POCT Urinalysis (07/16/2025 2:17 [...] Appearance, UA CLEAR QC Media Lot # [id number] Lot# Expiration Date [id number] Urine 07/16/2025 2:17 PM EDT Cindy Pacheco MD POINT OF CARE TEST ENTER/EDIT ORDERABLES Final Result * BI Mammogram Screening Tomosynthesis Bilateral (07/10/2025 8:15 AM EDT) Anatomical Region Laterality Modality Breast Bilateral Mammography 07/10/2025 8:15 AM EDT Narrative 07/13/2025 10:52 AM EDT [address] [place] [address] Mammography Report Signed Patient: Hailey Bunch MR#: [id number] : 1980 Acct:[id number] Age/Sex: 45 / F ADM Date: 07/10/25 Loc: [facility] Attending Dr: Yanira VALDEZ Ordering Physician: Yanira Melissa Results: 1Negat león Date of Service: 07/10/25 Follow Up: 1 Year From [facility] Mammogram Procedure(s): MM tomosynthesis screening BI Accession Number(s): [id number] cc: Yanira Melissa Reason For Exam: Routine [...] OV> 07/13/25 1049 DD/ 0815 TD/TT: 07/10/25 08 Grill Attendant: Procedure Note Donotuseinterpreter, Image - 07/13/2025 [facility] [address] [place] [address] Mammography Report Signed Patient: Hailey BunchMR#: [id number] : 1980Acct:[id number] Age/Sex: 45 / FADM Date: 07/10/25 Loc: [facility]I Attending Dr: Yanira VALDEZ Ordering Physician: Yanira Melissa FNPResults: 1Negat león Date of Service: 07/10/25Follow Up: 1 Year From [facility] Mammogram Procedure(s): MM tomosynthesis screening BI Accession Number(s): [id number] cc: Yanira Melissa Reason For Exam: Routine [...] Sellers MD 07/13/2025 10:49 AM EDT Workstation: [employer] Dictated By: Eusebia Sellers MD Signed By: <Electronically signed by Eusebia Sellers MD in OV> 07/13/25 1049 DD/ 0815 TD/TT: 07/10/25 0826 Grill Attendant: Yanira Melissa [facility] IM BI PROCEDURES Final Result * HPV DNA, Low/High Risk (04/28/2025 9:47 AM EDT) HPV High Risk Negative Negative [facility] HPV Genotype 16 Negative Negative [facility] HPV Genotype 18 Negative Negative [facility] Comment:HPV testing performe d at [facility] (CLIA#[id number]), [address] [place] [address].Testing for HPV was performed using the [employer] 6800system. The presence of HPV in [...] EDT 04/29/2025 8:00 AM EDT Aisha Rodriguez RECYCLABLE MATERIALS DISTRIBUTOR LAB BLOOD ORDERABLES Christa terrell Result [facility] [address] [place] [phone] * Pap Smear (04/28/2025 9:47 AM EDT) Swab Cervix uteri structure / Unknown 04/28/2025 9:47 AM EDT 04/29/2025 8:00 AM EDT Narrative [facility] - 04/30/2025 3:19 PM EDT ----- ------- Name: Hailey Bunch Age/Sex: 44/F : 1980 Unit#: [id number] Attend Dr: Aisha Rodriguez Re04/28/25 Status: DEP [facility] Disch: ----- ------- SPEC : [id number] RECD: 04/29/25 STATUS: DULCE FITZGERALD NUM: [id number] MARSHALL: 04/28/[address]: Aisha Rodriguez ENTERED: [...] HPV testing will be performed at [facility] (CLIA #[id number]), [address] [place] [address]. Testing for HPV was performed using the its [employer] system. The presence of HPV in the [...] detected. All professional services are performed by [facility] ([address] [place] [address]; ; CLIA #[id number]). The PAP Test is a screening procedure with the inherent possibility of both false negative and false positive results. Results should be interpreted in the context of historic and current clinical findings. Reliability of the PAP Test is enhanced by performing the test on a regular repetitive basis. ----- ------- Signed (signature on file) ZULAY Roman ([facility]) 04/30/25 1519 ----- ------- END OF REPORT Aisha Rodriguez [facility] CYTOLOGY ORDERABLES F inal Result Performing Organization Address City/[facility]/ZIP Co de Phone Number [facility] [address] [place] [phone] [phone] * Hepatitis C Antibody with Reflex to HCV, RNA, Quantitative, Real-Time PCR (03/17/2025 3:48 PM EDT) Hepatitis C Antibody Nonreactive Nonreactive [facility] Comment:Antibodies to HCV no t detected; does not exclude early acuteHCV infection. Blood Venous blood specimen / Unknown 03/17/2025 3:48 PM EDT 03/17/2025 4:12 PM EDT Yanira Oktara [facility] LAB BLOOD ORDERABLES Final Res ult Performing Organization Address [facility]/ZIP Co de Phone Number [facility] [address] [place] [phone] [phone] * HIV-1/2 Antigen and Antibodies, Fourth Generation, with Reflexes (03/17/2025 3:48 PM EDT) HIV AB/AG Nonreactive Nonreactive [facility] Comment:HIV-1 p24 Ag and/or HIV-1/HIV-2 Ab not detected.A test result that is nonreactive does not exclude thepossibility of exposure to or infection with HIV-1 and/orHIV-2. Nonreactive results in this assay for individualswith prior exposure to HIV-1 and/or HIV-2 may be due toantigen and antibody levels that are below the limit ofdetection of this assay.The [employer] HIV Ag/Ab Combo assay result andsupplemental assay results should be interpreted inconjunction with the patient's clinical presentation,history and other laboratory results. If the results areinconsistent with clinical evidence, additional testing issuggested to confirm the result. Blood Venous blood specimen / Unknown 03/17/2025 3:48 PM EDT 03/17/2025 4:12 PM EDT Yanira Melissa RESERVOIR CARETAKER LAB BLOOD ORDERABLES Final Res ult [facility] [address] [place] [phone] from Last 3 Months or Most Recently Relevant to Health Maintenance [place] Care Teams Cutter V Groove Relationship Specialty Start Date End Date Yanira Melissa FNP [address] [place] [phone] PCP - General Family Medicine 03/17/25
--- OUTSIDE RECORDS SUMMARY | 2025-07-21 11:29 | XMS_ITS | Encounter Summary ---
Author Organization [employer] Address 75 [facility] 7t [place] [address] Care Team Providers Care Optical Sales Associate Name Role Phone Yanira Melissa SOCIAL MEDIA SPECIALIST Primary Care Provider [phone] Reason for Visit * Reason Onset Date Comments referral 01/05/2025 Encounter Details Date Type Department Care Team (Late st Contact Info) Description 01/05/2025 Telephone [facility] ADULT DENTAL [address] [place] [address] Tavia Mullins DDS [address] [place] [address] referral Social History Tobacco Use Types Packs/Day [...] Miscellaneous Notes * Telephone Encounter - Prasanna Lennon DMD - 01/06/2025 3:10 PM EDT Please follow up with Dr. Royal * Telephone Encounter - Reena Waldrop - 01/05/2025 1:12 PM EDT Patient is trying to get an appt at [facility] for RCT. They need a referral sent to their office at [email or web address] documented in this encounter Plan of Treatment Upcoming Encounters Date Type Department Care Team (Late st Contact Info) Description 07/23/2025 11:15 AM EDT Office Visit [facility] OPT[facility] [address] [place] [address] Chen Sewell, OD [address] [place] [address] 07/29/2025 8:00 AM EDT Office Visit [facility] ADULT DENTAL [address] [place] [address] Maritza Givens 08/09/2025 10:00 AM EDT Office Visit [facility] [address] [place] [address] Vazquez-Royal, Tavia, DDS [address] [place] [address] 08/10/2025 10:00 AM EDT Office Visit [facility] MEDICINE [address] [place] [address] Yanira Melissa FNP [address] [place] [address] documented as of this encounter Visit Diagnoses Not on filedocumented in this encounter Care Teams Optical Sales Associate Relationship Specialty Start Date End Date Yanira Melissa FNP [address] [place] [address] PCP - General Family Medicine 03/17/25 documented as of this encounter
--- OUTSIDE RECORDS SUMMARY | 2025-07-21 11:29 | XMS_ITS | Encounter Summary ---
Author Organization [employer] Address 75 [facility] 7t [place] [address] Care Team Providers Care Radiator Repairer Name Role Phone Yanira Melissa POULTRY DRESSER Primary Care Provider [phone] Encounter Details Date Type Department Care Team ([facility] st Contact Info) Description 07/20/2025 Results Follow-Up [facility] [address] [place], [place] [phone] Cindy Pacheco MD [address] [place], [place] [phone] Urinalysis, Complete, with Reflex to Culture Social History Tobacco Use Types Packs/Day Years [...] Telephone Encounter - Linnette Das RN - 07/21/2025 8:32 AM EDT TC placed to pt in regard to recent urine results pt still with UTI symptoms painful urination and pressure, discussed results with Dr Adamson and pt will come to walk in center for reevaluation. ----- Message from Cindy Pacheco MD sent at 07/20/2025 6:38 PM EDT ----- Please inform Hailey that her urinalysis from today does not show any blood. If she continues to see her urine is red and she is not menstruating, she should return to [facility] or follow up with PCP. Future Appointments Date Time Provider Department Center 07/23/2025 11:15 AM Chen Sewell OD [facility] 07/29/2025 8:00 AM Maritza Givens [facility] 08/09/2025 10:00 AM Tavia Mullins DDS [facility] 08/10/2025 10:00 AM COURTNEY Matta MEDICINE [facility] ----- Message ----- From: Interface, Lab Results In Sent: 07/20/2025 11:34 AM EDT To: Cindy Pacheco MD * Result Encounter Note - Cindy Pacheco MD - 07/20/2025 6:38 PM EDT Please inform Hailey that her urinalysis from today does not show any blood. If she continues to see her urine is red and she is not menstruating, she should return to [facility] or follow up with PCP. Future Appointments Date Time Provider Department Center 07/23/2025 11:15 AM Chen Sewell, JUANA [facility] 07/29/2025 8:00 AM Maritza Givens [facility] 08/09/2025 10:00 AM Tavia Mullins DDS [facility] 08/10/2025 10:00 AM COURTNEY Matta MEDICINE [facility] documented in this encounter Plan of Treatment Upcoming Encounters Date Type Department Care Team (Late st Contact Info) Description 07/23/2025 11:15 AM EDT Office Visit [facility] OPTOMETRY [address] [place] [address] Chen Sewell OD [address] [place] [address] 07/29/2025 8:00 AM EDT Office Visit [facility] ADULT DENTAL [address] [place] [address] Maritza Givens 08/09/2025 10:00 AM EDT Office Visit [facility] ADULT DENTAL [address] [place] [address] Tavia Mullins DDS [address] [place] [address] 08/10/2025 10:00 AM EDT Office Visit [facility] MEDIC[facility] [address] [place] [address] Yanira Melissa FNP [address] [place] [address] documented as of this encounter Visit Diagnoses Not on filedocumented in this encounter Additional Health Concerns Assessment Noted Time PHQ-9 Depression Total Score: 4 04/28/20 9:30 AM EDT documented as of this encounter Care Teams Radiator Repairer Relationship Specialty Start Date End Date Yanira Melissa FNP [address] [place] [phone] PCP - General Family Medicine 03/17/25 documented as of this encounter
--- OUTSIDE RECORDS SUMMARY | 2025-07-21 11:29 | XMS_ITS | Encounter Summary ---
Author Organization [employer] Address 75 [facility] 7t [place] [address] Care Team Providers Care Textile Pin Worker Name Role Phone Yanira Melissa INCIDENT RESPONSE ENGINEER Primary Care Provider [phone] Reason for Visit * Reason Onset Date Comments Results 07/20/2025 Encounter Details Date Type Department Care Team ([facility] st Contact Info) Description 07/20/2025 Results Follow-Up [facility] [address] [place] [address] Cindy Pacheco MD [address] [place] [address] POCT Urinalysis, Bacterial Vaginosis Panel, Chlamydia/N. Gonorrhoeae [...] TC placed to pt with in house arm maker and the message below was discussed pt [...] of the urine. She can go to [facility] or [facility] to do the test. Once I have [...] of the urine. She can go to [facility] or [facility] to do the test. Once I have that result, I can give further guidance. documented in this encounter Plan of Treatment Upcoming Encounters Date Type Department Care Team (Late st Contact Info) Description 07/23/2025 11:15 AM EDT Office Visit [facility] OPTOMETRY [address] [place] [address] Chen Sewell OD [address] [place] [address] 07/29/2025 8:00 AM EDT Office Visit [facility] ADULT DENTAL [address] [place] [address] Maritza Givens 08/09/2025 10:00 AM EDT Office Visit [facility] ADULT DENTAL [address] [place] [address] Vazquez-RoyalTavia knox, DDS [address] [place] [address] 08/10/2025 10:00 AM EDT Office Visit [facility] MEDICINE [address] [place] [address] Yanira Melissa FNP [address] [place] [address] Scheduled Orders Name Type Priority Associated Diagnoses Orde r Schedule Urinalysis with reflex microscopic Lab Routine Gross hematuria Expected: 07/20/2025, Expires: 07/20/2026 documented as of this encounter Visit Diagnoses Diagnosis Gross hematuria- Primary documented in this encounter Additional Health Concerns Assessment Noted Time PHQ-9 Depression Total Score: 4 04/28/20 25 9:30 AM EDT documented as of this encounter Care Teams Textile Pin Worker Relationship Specialty Start Date End Date Yanira Melissa FNP [address] [place] [address] PCP - General Family Medicine 03/17/25 documented as of this encounter
--- OUTSIDE RECORDS SUMMARY | 2025-07-21 11:29 | XMS_ITS | Encounter Summary ---
Author Organization [employer] Address 75 [facility] 7t [place] [address] Care Team Providers Care Pole Climber Name Role Phone Yanira Melissa EXT JS DEVELOPER Primary Care Provider [phone] Reason for Visit * Reason Onset Date Comments Results 07/19/2025 Encounter Details Date Type Department Care Team ([facility] st Contact Info) Description 07/19/2025 Telephone [facility] MEDICINE [address] [place], [place] [phone] Yanira Melissa FNP [address] [place] [address] Results Social History Tobacco Use Types Packs/Day [...] t he electric, gas, oil or water [employer] threatened to shut off services in your [...] AM EDT Telephone call to pt via [employer]. Advised pt that STI testing and bacterial [...] results: Blood Date when done: 07/16 Facility: [facility] Contact pt at [phone] Need medical billing supervisor documented in this encounter Plan of Treatment Upcoming Encounters Date Type Department Care Team (Late st Contact Info) Description 07/23/2025 11:15 AM EDT Office Visit [facility] OPTOMETRY [address] [place] [address] Chen Sewell, OD [address] [place] [address] 07/29/2025 8:00 AM EDT Office Visit [facility] ADULT DENTAL 230 [facility] [place] [address] Tosha Maritza 08/09/2025 10:00 AM EDT Office Visit [facility] ADULT DENTAL [address] [place] [address] Vazquez-Royal, Tavia, DDS [address] [place] [address] 08/10/2025 10:00 AM EDT Office Visit [facility] MEDICINE [address] [place] [address] Yanira Melissa FNP [address] [place] [address] documented as of this encounter Visit Diagnoses Not on filedocumented in this encounter Additional Health Concerns Assessment Noted Time PHQ-9 Depression Total Score: 4 04/28/20 25 9:30 AM EDT documented as of this encounter Care Teams Pole Climber Relationship Specialty Start Date End Date Yanira Melissa FNP [address] [place] [address] PCP - General Family Medicine 03/17/25 documented as of this encounter
--- OUTSIDE RECORDS SUMMARY | 2025-07-21 11:29 | XMS_ITS | Encounter Summary ---
Author Organization [employer] Address 75 [facility] 7t [place] [address] Care Team Providers Care Second Floor Operator Name Role Phone Yanira Melissa ANIMAL TECHNICIAN Primary Care Provider [phone] Encounter Details Date Type Department Care Team ([facility] st Contact Info) Description 07/20/2025 Orders Only [facility] MED & PEDS [address] [place], [place] [phone] Cindy Pacheco MD [address] [place], [place] [phone] Social History Tobacco Use Types Packs/Day Years [...] Description 07/23/2025 11:15 AM EDT Office Visit [facility] OPTOMETRY [address] [place] [address] TarkaChen, OD [address] [place] [address] 07/29/2025 8:00 AM EDT Office Visit [facility] ADULT DENTAL [address] [place] [address] Givens, Maritza 08/09/2025 10:00 AM EDT Office Visit [facility] ADULT DENTAL [address] [place] [address] Vazquez-Royal, Tavia, DDS [address] [place] [address] 08/10/2025 10:00 AM EDT Office Visit [facility] MEDICINE [address] [place] [address] Yanira Melissa, ANIMAL TECHNICIAN [address] [place] [address] documented as of this encounter Procedures Procedure Name Priority Date/Time Associated Diagnosis Comments URINALYSIS, COMPLETE, WITH REFLEX TO CULTURE Routine 07/20/2025 10:15 AM EDT documented in this encounter Results * (ABNORMAL) Urinalysis, Complete, with Reflex to Culture (07/20/2025 10:15 AM EDT) Color Urine Yellow [facility] Appearance Urine Turbid [facility] PH 5.5 5.0 - 9.0 [facility] Glucose Urine UA Negative Negative mg/dL [facility] Urine Blood Trace(A) Negative [facility] Specific [place] - Urine 1.025 1.005 - 1.025 [facility] Urine Protein Negative Neg-Trace mg/dL [facility] Urine Ketones Negative Negative mg/dL [facility] Nitrite Urine Negative Negative [facility] Leukocyte Esterase Urine Negative Negative [facility] RBC Urine 0-2 0 - 2 /HPF [facility] Urine WBC 0-5 0 - 5 /HPF [facility] Urine Squamous Epithelial Cell 11-20 0 - 2 /HPF [facility] Urine Bacteria Trace None Seen [facility] Hyaline Casts, Urine 0-2 0 - 2 /LPF [facility] 07/20/2025 10:1 5 AM EDT 07/20/2025 11:23 AM EDT Narrative [facility] - 07/20/2025 11:44 AM EDT Urine, Clean Catch us Cindy Pacheco MD LAB URINE ORDERABLES Final Re sult [facility] [address] [place] [address] [phone] documented in this encounter Visit Diagnoses Not on filedocumented in this encounter Additional Health Concerns Assessment Noted Time PHQ-9 Depression Total Score: 4 04/28/20 9:30 AM EDT documented as of this encounter Care Teams Second Floor Operator Relationship Specialty Start Date End Date Yanira Melissa FNP [address] [place] [id number] PCP - General Family Medicine 03/17/25 documented as of this encounter
--- OUTSIDE RECORDS SUMMARY | 2025-07-21 11:29 | XMS_ITS | Encounter Summary ---
Author Organization [employer] Address [address] [facility] 7t [place] [address] Care Team Providers Care Alpaca Farmer Name Role Phone Yanira Melissa [facility] Primary Care Provider [phone] Encounter Details Date Type Department Care Team [...] Description 07/23/2025 11:15 AM EDT Office Visit [facility] OPTOMETRY [address] [place] [address] TarkaChen, OD [address] [place] [address] 07/29/2025 8:00 AM EDT Office Visit [facility] ADULT DENTAL [address] [place] [address] Maritza Givens 08/09/2025 10:00 AM EDT Office Visit [facility] ADULT DENTAL [address] [place] [address] Vazquez-Royal, Tavia, DDS [address] [place] [address] 08/10/2025 10:00 AM EDT Office Visit [facility] MEDICINE [address] [place] [address] Yanira Melissa FNP [address] [place] [address] documented as of this encounter Visit Diagnoses Not on filedocumented in this encounter Additional Health Concerns Assessment Noted Time PHQ-9 Depression Total Score: 4 04/28/20 25 9:30 AM EDT documented as of this encounter Care Teams Alpaca Farmer Relationship Specialty Start Date End Date Yanira Melissa FNP [address] [place] [address] PCP - General Family Medicine 03/17/25 documented as of this encounter
--- OUTSIDE RECORDS SUMMARY | 2025-07-21 11:29 | XMS_ITS | Encounter Summary ---
Author Organization [employer] [facility] Address 75 [facility] 7t [place] [address] Care Team Providers Care Liquid Hydrogen Plant Operator Name Role Phone Yanira Melissa [facility] Primary Care Provider [phone] Reason for Visit * Reason Onset Date Comments Medication 02/03/2025 Encounter Details Date Type Department Care Team (Late st Contact Info) Description 02/03/2025 Telephone [facility] ADULT DENTAL [address] [place] [address] Tavia Mullins DDS [address] [place] [address] Medication Social History Tobacco Use Types Packs/Day [...] Description 07/23/2025 11:15 AM EDT Office Visit [facility] OPTOMETRY [address] [place] [address] Chen Sewell, OD [address] [place] [address] 07/29/2025 8:00 AM EDT Office Visit [facility] ADULT DENTAL 230 [place] [address] GivensMaritza gaytan 08/09/2025 10:00 AM EDT Office Visit [facility] ADULT DENTAL [address] [place] [address] Taylor-Tavia Royal, DDS [address] [place] [address] 08/10/2025 10:00 AM EDT Office Visit [facility] MEDICINE [address] [place] [address] Yanira Melissa FNP [address] [place] [address] documented as of this encounter Visit Diagnoses Not on filedocumented in this encounter Care Teams Liquid Hydrogen Plant Operator Relationship Specialty Start Date End Date Yanira Melissa FNP [address] [place] [address] PCP - General Family Medicine 03/17/25 documented as of this encounter
--- OUTSIDE RECORDS SUMMARY | 2025-07-21 11:29 | XMS_ITS | Encounter Summary ---
Author Organization [employer] Address 75 [facility] 7t [place] [address] Care Team Providers Care Audio Visual Specialist Name Role Phone Yanira Melissa [facility] Primary Care Provider [phone] Reason for Visit * Reason Onset Date Comments Nurse Triage 07/16/2025 Encounter Details Date Type Department Care Team (Late st Contact Info) Description 07/16/2025 Telephone [facility] MEDICINE [address] [place] [address] Yanira Melissa FNP [address] [place] [address] Nurse Triage Social History Tobacco Use Types [...] 07/16/2025 12:04 PM EDT Call returned to [facility] at [phone] for triage below. No answer LVM to return call to [facility] triage line [phone]. * Telephone Encounter - Blayne Longoria - 07/16/2025 11:20 AM EDT TC from pt reports has noticed blood in her urine . In addition pt reports was brushing her teeth and when she rinsed she also noticed blood . Turkmen speaking documented in this encounter Plan of Treatment Upcoming Encounters Date Type Department Care Team (Late st Contact Info) Description 07/23/2025 11:15 AM EDT Office Visit [facility] OPTOMETRY [address] [place] [address] Chen Sewell, OD [address] [place] [address] 07/29/2025 8:00 AM EDT Office Visit [facility] ADULT DENTAL [address] [place] [address] Maritza Givens 08/09/2025 10:00 AM EDT Office Visit [facility] ADULT DENTAL [address] [place], [place] [phone] Vazquez-Royal, Tavia, DDS [address] [place], [place] [phone] 08/10/2025 10:00 AM EDT Office Visit [facility] MEDICINE [address] [place], [place] [phone] Yanira Melissa FNP [address] [place], [place] [phone] documented as of this encounter Visit Diagnoses Not on filedocumented in this encounter Additional Health Concerns Assessment Noted Time PHQ-9 Depression Total Score: 4 04/28/20 25 9:30 AM EDT documented as of this encounter Care Teams Audio Visual Specialist Relationship Specialty Start Date End Date Yanira Melissa FNP [address] [place], [place] [phone] PCP - General Family Medicine 03/17/25 documented as of this encounter
[2025-07-21 13:39] LABS: Appearance Urine Clear; Glucose Urine UA Negative (Negative); PH 5.5 (5.0-9.0); Specific Gravity - Urine 1.015 (1.005-1.025)
== END 2025-07-21 10:14 | disposition home or self-care (01) ==
LOC: HO.HHCL 10:13
PROVIDERS: PCP Nurse Practitioner Family; Visit Provider Internal Medicine
DX: R31.0 Gross hematuria (principal)
CPT/HCPCS: 81003

== ENCOUNTER 2025-08-10 10:15 | Outpatient (REF) | payer MEDICAID, SELFPAY ==
--- OUTSIDE RECORDS SUMMARY | 2025-08-09 10:00 | XMS_ITS | Encounter Summary ---
Author Organization [employer] Address 75 [facility] 7t [place] [address] Care Team Providers Care Heat Seal Operator Name Role Phone Yanira Melissa CORRECTIONAL PROGRAM OFFICER Primary Care Provider [phone] Reason for Visit * Reason Comments Dentures Dental impressions Encounter Details Date Type Department Care Team (Late st Contact Info) Description 08/09/2025 10:00 AM EDT Office Visit [facility] ADULT DENTAL [address] [place] [address] Tavia Mullins DDS [address] [place] [address] Teeth missing (Primary Dx) Social History Tobacco Use Types [...] AM EST documented as of this encounter Progress Notes * Tavia Mullins DDS - 08/09/2025 10:00 AM EDT Patient ID: Hailey Mayer is a 45 y.o. female. Time Out: Timeout Date: 08/09/25, Timeout Time: 950 (Dentures impressions) Location: [facility] Tooth: Mandible Procedure: Dentures Impression Verified the above with patient, judicial administrative assistant, and provider. Confirmed via patient's chart, intraorally and by radiographs. Transportation Sales Consultant: not applicable Chief Complaint Patient presents with Dentures Dental impressions Medical Hx: Vitals: Last menstrual period 07/03/2025. Medications, Med Hx reviewed with patient and updated in chart. Consent Obtained: The risks, benefits, indications, potential complications, and alternatives were explained to the patient and informed consent was obtained with good understanding. Treatment Provided: Dental procedures in this visit D5750.1 - DENTURE IMPRESSION (Completed) Service provider: Tavia Mullins DDS Billing provider: Tavia Mullins DDS Impression taken with [place] of Mandible Case sent to lab for wax try-in Blue bote taken Color selected: A3 Lab used: [facility] Lab Due Date: 08/16/2025 Patient discharged alert, oriented, and in stable condition. NV: Wax try-in [employer] Solution Architect: Minna Livingston Dentist: Taiva Mullins DDS documented in this encounter Plan of Treatment Upcoming Encounters Date Type Department Care Team (Late st Contact Info) Description 08/18/2025 10:15 AM EDT Office Visit [facility] ADULT DENTAL [address] [place] [address] Taylor-Tavia Royal DDS [address] [place] [address] 01/31/2026 8:45 AM EDT Office Visit [facility] ADULT DENTAL [address] [place] [address] Maritza Givens Scheduled Orders Name Type Priority Associated Diagnoses Orde r Schedule DENTAL LAB DENTURES AND PARTIALS Dental Routine Ordered: 025 documented as of this encounter Procedures Procedure Name Priority Date/Time Associated Diagnosis Comments DENTURE IMPRESSION Routine 08/09/2025 10:00 AM ED T Teeth missing documented in this encounter Visit Diagnoses Diagnosis Teeth missing- Primary Acquired absence of teeth, unspecified documented in this encounter Additional Health Concerns Assessment Noted Time PHQ-9 Depression Total Score: 4 04/28/20 25 9:30 AM EDT documented as of this encounter Care Teams Heat Seal Operator Relationship Specialty Start Date End Date Yanira Melissa FNP [address] [place] [address] PCP - General Family Medicine 03/17/25 documented as of this encounter
--- NOTE | ~2025-08-10 | XR_ITS ---
EXAMINATION: XR CERVICAL SPINE CLINICAL INFORMATION: PAIN COMPARISON: None available. TECHNIQUE: 3 views of the cervical spine were obtained. FINDINGS: Bone alignment is normal. No fracture or dislocation. Normal disc spaces. Normal soft tissues. XR/XR cervical spine 3V IMPRESSION: Unremarkable examination. Electronically signed by: Didi Jesus MD 08/10/2025 12:15 PM EDT
--- OUTSIDE RECORDS SUMMARY | 2025-08-10 10:00 | XMS_ITS | Encounter Summary ---
Author Organization [employer] Address 75 [facility] 7t [place] [address] Care Team Providers Care Solid Waste Truck Driver Name Role Phone Yanira Melissa Primary Care Provider [phone] Encounter Details Date Type Department Care Team (Late st Contact Info) Description 08/10/2025 10:00 AM EDT Office Visit [facility] MEDICINE [address] [place], [place] [phone] Yanira Melissa FNP [address] [place], [place] [phone] Chronic neck pain (Primary Dx) Social History Tobacco Use Types [...] Sign Reading Time Taken Comments Blood Pressure 115/72 08/10/2025 9:34 AM EDT Pulse 83 08/10/2025 9:34 AM EDT Temperature 37 C (98.6 F) 08/10/2025 9:34 AM EDT Respiratory Rate 16 08/10/2025 9:34 AM EDT Oxygen Saturation 97% 08/10/2025 9:34 AM EDT Inhaled Oxygen Concentration - - Weight 72.8 kg (160 lb 9.6 oz) 08/10/2025 9:34 A M EDT Height 160 cm (5' 3 ) 08/10/2025 9:34 AM EDT Body Mass Index 28.45 08/10/2025 9:34 AM EDT documented in this encounter Plan of Treatment Upcoming Encounters Date Type Department Care Team (Late st Contact Info) Description 08/18/2025 10:15 AM EDT Office Visit [facility] ADULT DENTAL [address] [place] [address] Vazquez-RoyalTavia knox, DDS [address] [place] [address] 01/31/2026 8:45 AM EDT Office Visit [facility] ADULT DENTAL [address] [place] [address] Maritza Givens Scheduled Orders Name Type Priority Associated Diagnoses Orde r Schedule XR Cervical Spine 2-3 Views Imaging Routine Chronic neck pain Expected: 08/10/2025, Expires: 08/10/2026 documented as of this encounter Visit Diagnoses Diagnosis Chronic neck pain- Primary Cervicalgia documented in this encounter Additional Health Concerns Assessment Noted Time PHQ-9 Depression Total Score: 4 04/28/20 25 9:30 AM EDT documented as of this encounter Care Teams Solid Waste Truck Driver Relationship Specialty Start Date End Date Yanira Melissa FNP [address] [place] [address] PCP - General Family Medicine 03/17/25 documented as of this encounter
--- OUTSIDE RECORDS SUMMARY | 2025-08-10 12:05 | XMS_ITS | Encounter Summary ---
Author Organization [employer] Address 75 [facility] 7t [place] [address] Care Team Providers Care Head Coach Name Role Phone Yanira Melissa [facility] Primary Care Provider [phone] Encounter Details Date Type Department Care Team (Latest Contact Info) Description 08/10/2025 Travel Social History Tobacco Use Types Packs/Day [...] Description 08/18/2025 10:15 AM EDT Office Visit [facility] ADULT DENTAL [address] [place] [address] Vazquez-Wu Royalfemia, DDS [address] [place] [address] 01/31/2026 8:45 AM EDT Office Visit [facility] ADULT DENTAL [address] [place] [address] Maritza Givens documented as of this encounter Visit Diagnoses Not on filedocumented in this encounter Additional Health Concerns Assessment Noted Time PHQ-9 Depression Total Score: 4 04/28/20 25 9:30 AM EDT documented as of this encounter Care Teams Head Coach Relationship Specialty Start Date End Date Yanira Melissa FNP [address] [place] [address] PCP - General Family Medicine 03/17/25 documented as of this encounter
--- OUTSIDE RECORDS SUMMARY | 2025-08-10 12:05 | XMS_ITS | Encounter Summary ---
Author Organization [employer] Address 75 [facility] 7t [place] [address] Care Team Providers Care Metal Roaster Name Role Phone Yanira Melissa [facility] Primary Care Provider [phone] Reason for Visit * Reason Onset Date Comments CHARTPREP 08/09/2025 Encounter Details Date Type Department Care Team (Late st Contact Info) Description 08/09/2025 Telephone [facility] MEDICINE [address] [place] [address] Yanira Melissa FNP [address] [place] [address] CHARTPREP Social History Tobacco Use Types Packs/Day Years [...] encounter Miscellaneous Notes * Telephone Encounter - Trevor Law MA - 08/09/2025 1:52 PM EDT Chart Prep Labs: done Images: done Referrals: Physical Therapy appointment pending,07/23/25 appointment Optometry Vaccines due: Tdap, Hep B, and HPV Screenings: not applicable Overdue care gaps: Not applicable documented in this encounter Plan of Treatment Upcoming Encounters Date Type Department Care Team (Late st Contact Info) Description 08/18/2025 10:15 AM EDT Office Visit [facility] ADULT DENTAL [address] [place] [address] Vazquez-Royal, Tavia, DDS [address] [place] [address] 01/31/2026 8:45 AM EDT Office Visit [facility] ADULT DENTAL [address] [place] [address] Maritza Givens documented as of this encounter Visit Diagnoses Not on filedocumented in this encounter Additional Health Concerns Assessment Noted Time PHQ-9 Depression Total Score: 4 04/28/20 9:30 AM EDT documented as of this encounter Care Teams Metal Roaster Relationship Specialty Start Date End Date Yanira Melissa FNP [address] [place] [address] PCP - General Family Medicine 03/17/25 documented as of this encounter
--- OUTSIDE RECORDS SUMMARY | 2025-08-10 12:05 | XMS_ITS | Clinical Summary ---
Author Organization [employer] Address [address] [facility] 7t [place] [address] Care Team Providers Care Disability Counselor Name Role Phone Yanira Melissa [facility] Primary Care Provider [phone] Allergies No known active allergies Medications famotidine [...] Encounters Date Type Department Care Team Description 08/10/2025 10:00 AM EDT Office Visit [facility] MEDICINE [address] [place] [address] Yanira Melissa FNP Chronic neck pain (Primary Dx) 08/10/2025 Travel 08/09/2025 10:00 AM EDT Office Visit [facility] ADULT DENTAL [address] [place] [address] Vazquez-Royal, Tavia, DDS Teeth missing (Primary Dx) 08/09/2025 Telephone [facility] [address] [place] [address] Yanira Melissa FNP CHARTPREP 08/03/2025 Travel 08/02/2025 Travel 07/29/2025 8:00 AM EDT Office Visit [facility] ADULT DENTAL [address] [place] [address] Maritza Givens Encounter for dental examination (Primary Dx); Dental calculus; Teeth missing 07/23/2025 11:15 AM EDT Office Visit [facility] OPTOMETRY [address] [place] [address] Tarka, Chen, OD Presbyopia (Primary Dx); Anatomical narrow angle of both eyes; Choroidal nevus, right eye 07/23/2025 Travel 07/22/[address] [address] Yanira Melissa FNP Results 07/20/2025 Results Follow-Up [facility] [address] [place] [address] Cindy Pacheco MD Urinalysis, Complete, with Reflex to Culture 07/20/2025 Orders Only [facility] [address] [place] [address] Cindy Pacheco MD 07/20/2025 Results Follow-Up [facility] [address] [place] [address] Cindy Pacheco MD POCT Urinalysis, Bacterial Vaginosis Panel, Chlamydia/N. Gonorrhoeae RNA, TMA, Vaginal, Culture, Urine, Routine 07/19/2025 3:00 PM EDT Office Visit [facility] ADULT DENTAL [address] [place] [address] Tavia Mullins DDS Dental caries (Primary Dx) 07/19/[address] [address] Yanira Melissa FNP Medication Question 07/19/[address] [address] Yanira Melissa FNP Results 07/16/2025 1:40 PM EDT Office Visit [facility] WALK-IN [address] [address] Cindy Pacheco MD Gross hematuria (Primary Dx) 07/16/2025 Travel 07/16/[address] [address] Yanira Melissa FNP Nurse Triage 07/13/2025 9:00 AM EDT Office Visit [address] [address] Yanira Melissa FNP Nonintractable chronic migraine (Primary Dx); Neck pain 07/13/2025 Travel 07/12/2025 Telephone [facility] [address] [place] [address] Yanira Melissa FNP Chart Prep 07/08/2025 2:00 PM EDT Office Visit [facility] [address] [address] Huma uGpta MD Local reaction to influenza vaccine, initial encounter (Primary Dx); Adverse reaction to COVID-19 vaccine; Cellulitis of left upper extremity 07/08/2025 Travel 07/08/[address] [address] Yanira Melissa FNP Nurse Triage 06/24/[address] [address] Yanira Melissa FNP Nurse Triage 06/15/2025 11:45 AM EDT Office Visit [place] [address] [place] [address] Minna Parmar DO Acute intractable headache, unspecified headache type (Primary Dx); Neck pain 06/15/2025 Travel 06/15/2025 Telephone [facility] MEDICINE [address] [place] [address] Yanira Melissa FNP Nurse Triage 2025 3:00 PM EDT Office Visit [facility] ADULT DENTAL [address] [place] [address] Vazquez-Royal, Tavia, DDS Full coverage crown needed for tooth at risk for fracture (Primary Dx) 05/27/2025 Telephone [facility] ADULT DENTAL [address] [place] [address] Vazquez-Royal, Tavia, DDS from Last 3 Months Immunizations Immunization Administration Dates Next Due Influenza, Injectable, MDCK, preservative free 0 07/06/2025 Family History Medical History Relation Name Comments [...] Mass Index 28.45 08/10/2025 9:34 AM EDT Plan of Treatment Upcoming Encounters Date Type Department Care Team (Late st Contact Info) Description 08/18/2025 10:15 AM EDT Office Visit [facility] ADULT DENTAL [address] [place] [address] Tavia Mullins, DDS [address] [place] [address] 01/31/2026 8:45 AM EDT Office Visit [facility] ADULT DENTAL [address] [place] [address] Maritza Givens Health Maintenance Due Date Last Done Comments HPV Vaccines (1 - 3-dose series) 1996 DTaP/Tdap/Td Vaccines (1 - Tdap) 2000 Hepatitis B Vaccines (1 of 3 - 19+ 3-dose series) 2000 Dental Oral Exam 01/28/2026 07/29/2025, 02/02/2025 Dental Prophylaxis 01/28/2026 07/29/2025 Dental X-Ray: Bitewings 02/03/2026 02/02/2025 SDOH Screening 03/09/2026 03/09/2025 Alcohol/Substance Use Screening 03/17/2026 03/17/2025 Depression Screening 04/28/2026 04/28/2025, 04/28/2025 Family Planning (PISQ) 04/28/2026 04/28/2025 Disability Screening 08/09/2026 08/09/2025 Tobacco Screening 08/10/2026 08/10/2025 Mammogram 07/10/2027 07/10/2025 Dental X-Ray: Full Mouth [...] Associated Diagnosis Comments DENTURE IMPRESSION Routine 08/09/2025 10 :00 AM EDT Teeth missing CASE PRESENTATION, DETAILED AND EXTENSIVE TREATMENT PLANNING Routine 07/29/2025 8:00 AM EDT TOPICAL APPLICATION OF FLUORIDE VARNISH Routine 07/29/2025 8:00 AM EDT ORAL HYGIENE INSTRUCTIONS Routine 07/29/2025 8:00 AM EDT PROPHYLAXIS - ADULT Routine 07/29/2025 8 :00 AM EDT INTRAORAL - PERIAPICAL FIRST RADIOGRAPHIC IMAGE Routine 07/29/2025 8:00 AM EDT COMPREHENSIVE PERIODONTAL EVALUATION - NEW OR ESTABLISHED PATIENT Routine 07/29/2025 8:00 AM EDT Encounter for dental examination Dental calculus Teeth missing PERIODIC ORAL EVALUATION - ESTABLISHED PATIENT Routine 07/29/2025 8:00 AM EDT Encounter for dental examination Dental calculus Teeth missing URINALYSIS WITH REFLEX MICROSCOPIC Routine 07/21/2025 10:42 AM EDT Gross hematuria URINALYSIS, COMPLETE, WITH REFLEX TO CULTURE Routine [...] needed for tooth at risk for fracture HPV DNA, LOW/HIGH RISK Routine 9:47 AM EDT PAP SMEAR Routine 04/28/2025 9:47 AM EDT Routine cervical smear HEPATITIS C AB W/REFL TO HCV RNA, QN, PCR Routine 03/17/2025 3:48 PM EDT Adult wellness visit HIV 1/2 ANTIGEN/ANTIBODY, FOURTH GENERATION W/RFL Routine 03/17/2025 3:48 PM EDT Adult wellness visit INTRAORAL - COMPLETE SERIES OF RADIOGRAPHIC IMAGES Routine 02/02/2025 8:00 AM EDT from Last 3 Months or Most Recently Relevant to Health Maintenance Results * Urinalysis with reflex microscopic (07/21/2025 10:42 AM EDT) Color Urine Yellow [facility] Appearance Urine Clear [facility] PH 5.5 5.0 - 9.0 [facility] Glucose Urine UA Negative Negative mg/dL [facility] Urine Blood Negative Negative [facility] Specific [place] - Urine 1.015 1.005 - 1.025 [facility] Urine Protein Negative Neg-Trace mg/dL [facility] Urine Ketones Negative Negative mg/dL [facility] Nitrite Urine Negative Negative [facility] Leukocyte Esterase Urine Negative Negative [facility] Urine (Urine, Random) 07/21/2025 10:42 AM EDT 07/21/2025 12:56 PM EDT Narrative [facility] - 07/21/2025 1:41 PM EDT Urine, Clean Catch us Cindy Pacheco MD LAB URINE ORDERABLES Final Re sult Performing Organization Address City/[facility]/ZIP Co de Phone Number [facility] [address] [place] [address] [phone] * (ABNORMAL) Urinalysis, Complete, with Reflex to Culture (07/20/2025 10:15 AM EDT) Color Urine Yellow [facility] Appearance Urine Turbid [facility] PH 5.5 5.0 - 9.0 [facility] Glucose Urine UA Negative Negative mg/dL [facility] Urine Blood Trace(A) Negative [facility] Specific [place] - Urine 1.025 1.005 - 1.025 [facility] Urine Protein Negative Neg-Trace mg/dL [facility] Urine Ketones Negative Negative mg/dL [facility] Nitrite Urine Negative Negative [facility] Leukocyte Esterase Urine Negative Negative [facility] RBC Urine 0-2 0 - 2 /HPF [facility] Urine WBC 0-5 0 - 5 /HPF [facility] Urine Squamous Epithelial Cell 11-20 0 - 2 /HPF [facility] Urine Bacteria Trace None Seen [facility] Hyaline Casts, Urine 0-2 0 - 2 /LPF [facility] 07/20/2025 10:1 5 AM EDT 07/20/2025 11:23 AM EDT Narrative [facility] - 07/20/2025 11:44 AM EDT Urine, Clean Catch us Cindy Pacheco MD LAB URINE ORDERABLES Final Re sult Performing Organization Address [facility]/ZIP Co de Phone Number [facility] [address] [place] [address] [phone] * Bacterial Vaginosis Panel (07/16/2025 2:50 PM EDT) TRICHOMONAS VAGINALIS DETECTION BY PCR NOT DETECTED Not Detect [facility] BACTERIAL VAGINOSIS DETECTION BY PCR NEGATIVE Negative [facility] Comment:The BV organism targ ets [...] DETECTION BY PCR NOT DETECTED Not Detect [facility] Suzi glab krusei PCR NOT DETECTED Not Detect [facility] Swab Vaginal structure / Unknown 07/16/2025 2:50 PM EDT 07/16/2025 4:28 PM EDT us Cindy Pacheco MD LAB MICROBIOLOGY - GENERAL OR DERABLES Final Result [facility] [address] [place] [phone] * Chlamydia/N. Gonorrhoeae RNA, TMA, Vaginal (07/16/2025 2:50 PM EDT) CT PCR NOT DETECTED Not Detect. [facility] Comment:A not detected test result [...] psychologicalconsequences. NG PCR NOT DETECTED Not Detect. [facility] Comment:A not detected test result [...] OR DERABLES Final Result Performing Organization Address [facility] Co de Phone Number [facility] [address] [place] [phone] * Culture, Urine, Routine (07/16/2025 2:50 PM EDT) Urine Urine specimen obtained by clean catch procedure / Unknown 07/16/2025 2:50 PM EDT 07/16/2025 4:02 PM EDT Comment:UACC Narrative [facility] - 07/18/2025 10:37 AM EDT Lactobacillus species Quant > 100,000 cfu/mL Susc N/A Susceptibility not routinely performed on this isolate. Specimen Source: Urine clean catch us Cindy Pacheco MD LAB MICROBIOLOGY - GENERAL OR DERABLES Final Result Performing Organization Address [facility] Co de Phone Number [facility] [address] [place] [phone] * (ABNORMAL) POCT Urinalysis (07/16/2025 2:17 [...] Appearance, UA CLEAR QC Media Lot # [id number] Lot# Expiration Date [id number] Urine 07/16/2025 2:17 PM EDT Cindy Pacheco MD POINT OF CARE TEST ENTER/EDIT ORDERABLES Final Result * BI Mammogram Screening Tomosynthesis Bilateral (07/10/2025 8:15 AM EDT) Anatomical Region Laterality Modality Breast Bilateral Mammography 07/10/2025 8:15 AM EDT Narrative 07/13/2025 10:52 AM EDT [facility] [address] [place] [address] Mammography Report Signed Patient: Hailey Bunch MR#: [id number] : 1980 Acct:[id number] Age/Sex: 45 / F ADM Date: 07/10/25 Loc: [facility] Attending Dr: Yanira VALDEZ Ordering Physician: Yanira Melissa Results: 1Negat león Date of Service: 07/10/25 Follow Up: 1 Year From [facility] Mammogram Procedure(s): MM tomosynthesis screening BI Accession Number(s): [id number] cc: Yanira Melissa Reason For Exam: Routine [...] Eusebia Sellers MD 07/13/2025 10:49 AM EDT Dictated By: Eusebia Sellers MD Signed By: <Electronically signed by Eusebia Sellers MD in OV> 07/13/25 1049 DD/ 0815 TD/TT: 07/10/25825 Chargeback Analyst: Procedure Note Donotuseinterpreter, Image - 07/13/2025 [facility] [address] [place] [address] Mammography Report Signed Patient: Hailey BunchMR#: [id number] : 1980Acct:[id number] Age/Sex: 45 / FADM Date: 07/10/25 Loc: [facility] Attending Dr: Yanira VALDEZ Ordering Physician: Yanira MelissaPResults: 1Negat león Date of Service: 07/10/25Follow Up: 1 Year From [facility] Mammogram Procedure(s): MM tomosynthesis screening BI Accession Number(s): [id number] cc: Yanira Melissa Reason For Exam: Routine [...] Eusebia Sellers MD 07/13/2025 10:49 AM EDT Dictated By: Eusebia Sellers MD Signed By: <Electronically signed by Eusebia Sellers MD in OV> 07/13/25 1049 DD/ 0815 TD/TT: 07/10/25 08 Chargeback Analyst: Yanira VALDEZ IM BI PROCEDURES Final Result * HPV DNA, Low/High Risk (04/28/2025 9:47 AM EDT) HPV High Risk Negative Negative [facility] HPV Genotype 16 Negative Negative [facility] HPV Genotype 18 Negative Negative [facility] Comment:HPV testing performe d at [facility] (CLIA#[id number]), [address] [place] [address].Testing for HPV was performed using the Toney [...] 9:47 AM EDT 04/29/2025 8:00 AM EDT Alexxis Rodriguez ROOM CLERK LAB BLOOD ORDERABLES Christa terrell Result [facility] [address] [place] [address] [phone] * Pap Smear (04/28/2025 9:47 AM EDT) Swab Cervix uteri structure / Unknown 04/28/2025 9:47 AM EDT 04/29/2025 8:00 AM EDT Narrative [facility] - 04/30/2025 3:19 PM EDT ----- ------- Name: Stephanie MayerHailey Age/Sex: 44/F : 1980 Unit#: [id number] Attend Dr: Aisha Rodriguez Re04/28/25 Status: [facility] REF Location: [facility] Disch: ----- ------- SPEC : [id number] RECD: 04/29/25 STATUS: DULCE FITZGERALD NUM: [id number] MARSHALL: 04/28/[address]: Asiha Rodriguez ENTERED: 04/29/25 SP TYPE: Pap Smr [...] and HPV testing will be performed at [facility] (CLIA #[id number]), [address] [place] [phone]. Testing for HPV was performed using the Toney GODFREY 6800 system. The presence of HPV in the [...] detected. All professional services are performed by [facility] ([address] [place] [address]; ; CLIA #[id number]). The PAP Test is a screening procedure with the inherent possibility of both false negative and false positive results. Results should be interpreted in the context of historic and current clinical findings. Reliability of the PAP Test is enhanced by performing the test on a regular repetitive basis. ----- ------- Signed (signature on file) ZULAY Roman ([facility]) 04/30/25 1519 ----- ------- END OF REPORT Aisha Rodriguez [facility] LAB CYTOLOGY ORDERABLES F inal Result Performing Organization Address [facility]/ZIP Co de Phone Number [facility] [address] [place] [address] [phone] * Hepatitis C Antibody with Reflex to HCV, RNA, Quantitative, Real-Time PCR (03/17/2025 3:48 PM EDT) Hepatitis C Antibody Nonreactive Nonreactive [facility] Comment:Antibodies to HCV no t detected; does not exclude early acuteHCV infection. Blood Venous blood specimen / Unknown 03/17/2025 3:48 PM EDT 03/17/2025 4:12 PM EDT Yanira Melissa [facility] LAB BLOOD ORDERABLES Final Res ult Performing Organization Address [facility] Co de Phone Number [facility] [address] [place] [address] [phone] * HIV-1/2 Antigen and Antibodies, Fourth Generation, with Reflexes (03/17/2025 3:48 PM EDT) HIV AB/AG Nonreactive Nonreactive [facility] Comment:HIV-1 p24 Ag and/or HIV-1/HIV-2 Ab not detected.A test result that is nonreactive does not exclude thepossibility of exposure to or infection with HIV-1 and/orHIV-2. Nonreactive results in this assay for individualswith prior exposure to HIV-1 and/or HIV-2 may be due toantigen and antibody levels that are below the limit ofdetection of this assay.The [employer] HIV Ag/Ab Combo assay result andsupplemental assay results should be interpreted inconjunction with the patient's clinical presentation,history and other laboratory results. If the results areinconsistent with clinical evidence, additional testing issuggested to confirm the result. Blood Venous blood specimen / Unknown 03/17/2025 3:48 PM EDT 03/17/2025 4:12 PM EDT Yanira Melissa CASTING AND CURING OPERATOR LAB BLOOD ORDERABLES Final Res ult [facility] [address] [place] [address] [phone] from Last 3 Months or Most Recently Relevant to Health Maintenance [place] Care Teams Disability Counselor Relationship Specialty Start Date End Date Yanira Melissa FNP [address] [place] [phone] PCP - General Family Medicine 03/17/25
--- OUTSIDE RECORDS SUMMARY | 2025-08-10 12:05 | XMS_ITS | Encounter Summary ---
Author Organization [facility] Address [address] [facility] 7t [place] [address] Care Team Providers Care Piping Blocker Name Role Phone Yanira Melissa [facility] Primary Care Provider [phone] Reason for Visit * Reason Onset Date Comments Medication 02/03/2025 Encounter Details Date Type Department Care Team (Late st Contact Info) Description 02/03/2025 Telephone [facility] ADULT DENTAL [address] [place] [address] Tavia Mullins DDS [address] [place], [place] [phone] Medication Social History Tobacco Use Types Packs/Day [...] Encounters Date Type Department Care Team (Late Contact Info) Description 08/18/2025 10:15 AM EDT Office Visit [facility] ADULT DENTAL [address] [place] [address] Tavia Mullins, DDS [address] [place] [address] 01/31/2026 8:45 AM EDT Office Visit [facility] ADULT DENTAL [address] [place] [address] Maritza Givens documented as of this encounter Visit Diagnoses Not on filedocumented in this encounter Care Teams Piping Blocker Relationship Specialty Start Date End Date Yanira Melissa FNP [address] [place] [address] PCP - General Family Medicine 03/17/25 documented as of this encounter
--- OUTSIDE RECORDS SUMMARY | 2025-08-10 12:05 | XMS_ITS | Encounter Summary ---
Author Organization [employer] Address [address] [facility] [address] [place] [address] Care Team Providers Care Wardrobe Image Consultant Name Role Phone Yanira Melissa [employer] Primary Care Provider [phone] Reason for Visit * Reason Onset Date Comments referral 01/05/2025 Encounter Details Date Type Department Care Team (Late st Contact Info) Description 01/05/2025 Telephone [facility] ADULT DENTAL [address] [place] [address] Tavia Mullins DDS [address] [place] [phone] referral Social History Tobacco Use Types Packs/Day [...] is trying to get an appt at [facility] for RCT. They need a referral sent to their office at [email or web address] documented in this encounter Plan of Treatment Upcoming Encounters Date Type Department Care Team (Late st Contact Info) Description 08/18/2025 10:15 AM EDT Office Visit [facility] ADULT DENTAL [address] [place] [address] Vazquez-Royal, Tavia, DDS [address] [place] [address] 01/31/2026 8:45 AM EDT Office Visit [facility] ADULT DENTAL [address] [place] [address] Maritza Givens documented as of this encounter Visit Diagnoses Not on filedocumented in this encounter Care Teams Wardrobe Image Consultant Relationship Specialty Start Date End Date Yanira Melissa FNP [address] [place], [place] [phone] PCP - General Family Medicine 03/17/25 documented as of this encounter
== END 2025-08-10 10:16 | disposition home or self-care (01) ==
LOC: HO.HHCL 10:15
PROVIDERS: PCP Nurse Practitioner Family; Visit Provider Nurse Practitioner Family
DX: M54.2 Cervicalgia (principal); G89.29 Other chronic pain
CPT/HCPCS: 72040

== ENCOUNTER → 2025-08-10 12:00 | Outpatient (BNV) | payer MEDICAID, SELFPAY | PROVIDERS: PCP Nurse Practitioner Family; Visit Provider Radiology Diagnostic Radiology | DX: M54.2 Cervicalgia (principal) | CPT/HCPCS: 72040 ==

== ENCOUNTER 2025-10-04 13:50 | Outpatient (REF) | payer MEDICAID, SELFPAY ==
--- OUTSIDE RECORDS SUMMARY | 2025-10-04 20:03 | XMS_ITS | Clinical Summary ---
Author Organization [employer] Address [address] [facility] [facility] [address] [place] [address] Care Team Providers Care Brush Cutter Name Role Phone Yanira Melissa [facility] Primary Care Provider [phone] Allergies No known active allergies Medications famotidine [...] 24 hours. 9 tablet 3 06/15/20 25 Active baclofen (Lioresal) 10 MG tablet Take 1 tablet (10 mg) by mouth if needed in the morning, at noon, and at bedtime for muscle spasms. 60 tablet 1 06/15/20 25 Active diphenhydrAMINE (BENADryl) 25 MG capsuleIndicati ons:Local reaction to influenza vaccine, initial encounter Take 1 capsule (25 mg) by mouth every 8 (eight) hours if needed for itching. 30 capsule 07/08/20 25 026 Active Diclofenac Sodium 1 % gel Apply 2 g topically if needed in the morning, at noon, in the evening, and at bedtime (pain). 150 g 3 07/13/20 25 Active amitriptyline (Elavil) 10 MG tabletIndicatio ns:Migraine without status migrainosus, not intractable, unspecified migraine type Take 1 tablet (10 mg) by mouth at bedtime. 30 tablet 3 5 8:43 AM EST 09/21/20 25 026 Active naproxen (Naprosyn) 500 MG tabletIndicatio ns:Migraine without status migrainosus, not intractable, unspecified migraine type Take 1 tablet (500 mg) by mouth if needed in the morning and at bedtime for mild pain. 40 tablet 1 5 8:43 AM EST 09/21/20 026 Active amitriptyline (Elavil) 10 MG tablet Take 1 tablet (10 mg) by mouth at bedtime. 30 tablet 3 06/15/20 25 025 Discontinued(Re order (will not trigger notification to Pharmacy)) naproxen (Naprosyn) 500 MG tablet Take 1 tablet (500 mg) by mouth if needed in the morning and at bedtime for mild pain. 40 tablet 1 06/15/20 25 025 Discontinued(Re order (will not trigger notification to Pharmacy)) Active Problems Problem Noted Date Diagnosed Date Neck pain 09/22/2025 Migraine without status migrainosus, not intract able 06/15/2025 Seborrheic dermatitis 04/09/2025 Secondary dental caries 10/30/2024 Resolved Problems Problem Noted Date Diagnosed Date Resolved Date Encounter for dental examination 10/30/2024 06/15/2025 Encounters Date Type Department Care Team Description 09/30/[address] [facility] [place] [address] Yanira Melissa FNP December09/21/2025 9:00 AM EST Office Visit [facility] [place] [address] Yanira Melissa FNP Migraine without status migrainosus, not intractable, unspecified migraine type (Primary Dx); Neck pain 09/21/2025 Travel 09/20/2025 1:45 PM EST Office Visit [facility] OPTOMETRY [address] [place] [address] Zain, Edelmira, OD Presbyopia (Primary Dx) 09/20/2025 Travel 09/20/2025 Telephone [facility] [place] [address] Yanira Melissa FNP Chart Prep 08/26/2025 10:00 AM EST Office Visit [facility] ADULT DENTAL [address] [facility] [place] [address] Vazquez-Royal, Tavia, DDS Teeth missing (Primary Dx) 08/19/2025 Travel 08/18/2025 10:15 AM EDT Office Visit [facility] ADULT DENTAL [address] [place] [address] Vazquez-Royal, Tavia, DDS Teeth missing (Primary Dx) 08/12/[address] [facility] [place] [address] Yanira Melissa FNP September Recall 08/11/2025 Travel 08/11/[address] [facility] [place] [address] Yanira Melissa FNP Results 08/10/2025 10:00 AM EDT Office Visit [facility] [place] [address] Yanira Melissa, COURTNEY Chronic neck pain (Primary Dx); Nonintractable chronic migraine 08/10/2025 Travel 08/09/2025 10:00 AM EDT Office Visit [facility] ADULT DENTAL [address] [place] [address] Vazquez-Royal, Tavia, DDS Teeth missing (Primary Dx) 08/09/[address] [address] Yanira Melissa FNP CHARTPREP 08/03/2025 Travel 08/02/2025 Travel 07/29/2025 8:00 AM EDT Office Visit [facility] ADULT DENTAL [address] [place] [address] Maritza Givens Encounter for dental examination (Primary Dx); Dental calculus; Teeth missing 07/23/2025 11:15 AM EDT Office Visit [facility] OPTOMETRY [address] [place] [address] Chen Sewell, OD Presbyopia (Primary Dx); Anatomical narrow angle of both eyes; Choroidal nevus, right eye 07/23/2025 Travel 07/22/[address] [address] Yanira Melissa FNP Results 07/20/2025 Results Follow-Up [facility] [address] [place] [address] Cindy Pacheco MD Urinalysis, Complete, with Reflex to Culture 07/20/2025 Orders Only [facility] [address] [place] [address] Cindy Pacheco MD 07/20/2025 Results Follow-Up [facility] [address] [place] [address] Cindy Pacheco MD POCT Urinalysis, Bacterial Vaginosis Panel, Chlamydia/N. Gonorrhoeae RNA, TMA, Vaginal, Culture, Urine, Routine 07/19/2025 3:00 PM EDT Office Visit [facility] ADULT DENTAL [address] [place] [address] Vazquez-Royal, Tavia, DDS Dental caries (Primary Dx) 07/19/[address] [address] Yanira Melissa FNP Medication Question 07/19/[address] [address] Yanira Melissa FNP Results 07/16/2025 1:40 PM EDT Office Visit [facility] WALK-IN CENTER [address] [place] [address] Cindy Pacheco MD Gross hematuria (Primary Dx) 07/16/2025 Travel 07/16/[address] [address] Yanira Melissa FNP Nurse Triage 07/13/2025 9:00 AM EDT Office Visit [address] [address] Yanira Melissa FNP Nonintractable chronic migraine (Primary Dx); Neck pain 07/13/2025 Travel 07/12/[address] [facility] MED & PEDS [address] [place] [address] Yanira Melissa FNP Chart Prep 07/08/2025 2:00 PM EDT Office Visit [facility] WALK-IN [address] [address] Huma Gupta MD Local reaction to influenza vaccine, initial encounter (Primary Dx); Adverse reaction to COVID-19 vaccine; Cellulitis of left upper extremity 07/08/2025 Travel 07/08/[address] [address] Yanira Melissa FNP Nurse Triage from Last 3 Months Immunizations Immunization Administration [...] Sign Reading Time Taken Comments Blood Pressure 112/74 09/21/2025 8:54 AM EST Pulse 92 09/21/2025 8:54 AM EST Temperature 37.1 C (98.8 F) 09/21/2025 8:54 AM EST Respiratory Rate 20 09/21/2025 8:54 AM EST Oxygen Saturation 97% 09/21/2025 8:54 AM EST Inhaled Oxygen Concentration - - Weight 73 kg (161 lb) 09/21/2025 8:54 AM EST Height 160 cm (5' 3 ) 09/21/2025 8:54 AM EST Body Mass Index 28.52 09/21/2025 8:54 AM EST Plan of Treatment Upcoming Encounters Date Type Department Care Team (Late st Contact Info) Description 10/05/2025 1:30 PM EST Nurse Only [facility] MED[facility]INE [address] [place], [place] [phone] 12/20/2025 9:00 AM EST Office Visit [facility] MEDICINE [address] [place] [address] Ezequieltara YaniraCOURTNEY [address] [place], [place] [phone] 01/31/2026 8:45 AM EDT Office Visit [facility] ADULT DENTAL [address] [place], [place] [phone] Maritza Givens Health Maintenance Due Date Last [...] 04/28/2025 Disability Screening 08/09/2026 08/09/2025 Tobacco Screening 09/21/2026 09/21/2025 Mammogram 07/10/2027 07/10/2025 Dental X-Ray: Full Mouth [...] PRESENTATION, DETAILED AND EXTENSIVE TREATMENT PLANNING Routine 08/26/2025 10:00 AM EST Teeth missing 29,30,31,18,19,20 MANDIBULAR PARTIAL DENTURE - RESIN BASE (INCLUDING, RETENTIVE/CLASPING MATERIALS, RESTS, AND TEETH) Routine 08/26/2025 10:00 AM EST Teeth missing WAX TRY IN Routine 08/18/2025 10:15 AM EDT Teeth missing XR CERVICAL SPINE 3V Routine 08/10/2025 12:00 PM EDT DENTURE IMPRESSION Routine 08/09/2025 10 :00 AM [...] 07/10/2025 8:15 AM EDT Adult wellness visit HPV DNA, LOW/HIGH RISK Routine 9:47 AM [...] Recently Relevant to Health Maintenance Results * XR CERVICAL SPINE 3V (08/10/2025 12:00 PM EDT) Anatomical Region Laterality Modality Abdomen Radiographic Radha ging 08/10/2025 12:0 0 PM EDT Narrative 08/10/2025 12:18 PM EDT [address] [address] XRay Report Signed Patient: Hailey Bunch MR#: [id number] : 1980 Acct:[id number] Age/Sex: 45 / F ADM Date: 08/10/25 Loc: [facility] Attending Dr: Yanira VALDEZ Ordering Physician: Yanira Melissa Date of Service: 08/10/25 Procedure(s): XR cervical spine 3V Accession Number(s): [id number] cc: Yanira Melissa Reason for Exam: PAIN EXAMINATION: XR CERVICAL SPINE CLINICAL INFORMATION: PAIN COMPARISON: None available. TECHNIQUE: 3 views of the cervical spine were obtained. FINDINGS: Bone alignment is normal. No fracture or dislocation. Normal disc spaces. Normal soft tissues. XR/XR cervical spine 3V IMPRESSION: Unremarkable examination. Electronically signed by: Didi Jesus MD 08/10/2025 12:15 PM EDT Dictated By: Didi Jesus MD Signed By: <Electronically signed by Didi Jesus MD in OV> 08/10/25 1215 DD/ 1200 TD/TT: 08/10/25 1212 Cross Country And Track And Field Coach: SMILEY Procedure Note Donotuseinterpreter, Image - 08/10/[address] [address] XRay Report Signed Patient: Hailey BunchMR#: M [id number] : 1980Acct:[id number] Age/Sex: 45 / FADM Date: 08/10/25 Loc: [facility]UR[facility] Attending Dr: Yanira VALDEZ Ordering Physician: Yanira Melissa Date of Service: 08/10/25 Procedure(s): XR cervical spine 3V Accession Number(s): [id number] cc: Yanira Melissa Reason for Exam: PAIN EXAMINATION: XR CERVICAL SPINE CLINICAL INFORMATION: PAIN COMPARISON: None available. TECHNIQUE: 3 views of the cervical spine were obtained. FINDINGS: Bone alignment is normal. No fracture or dislocation. Normal disc spaces. Normal soft tissues. XR/XR cervical spine 3V IMPRESSION: Unremarkable examination. Electronically signed by: Didi Jesus MD 08/10/2025 12:15 PM EDT Dictated By: Didi Jesus MD Signed By: <Electronically signed by Didi Jesus MD in OV> 08/10/25 1215 DD/ 1200 TD/TT: 08/10/25 1212 [employer] Track [employer] Coach: SMILEY us Yanira Melissa [employer] IMG XR PROCEDURES Edited Resul t - Final * Urinalysis with reflex microscopic (07/21/2025 10:42 AM EDT) Color Urine Yellow [facility] Appearance Urine Clear [facility] PH 5.5 5.0 - 9.0 [facility] Glucose Urine UA Negative Negative mg/dL [facility] Urine Blood Negative Negative [facility] Specific Almyra - Urine 1.015 1.005 - 1.025 [facility] Urine Protein Negative Neg-Trace mg/dL [facility] Urine Ketones Negative Negative mg/dL [facility] Nitrite Urine Negative Negative [facility] Leukocyte Esterase Urine Negative Negative [facility] Urine (Urine, Random) 07/21/2025 10:42 AM EDT 07/21/2025 12:56 PM EDT Narrative [facility] - 07/21/2025 1:41 PM EDT Urine, Clean Catch us Cindy Pacheco MD LAB URINE ORDERABLES Final Re sult [facility] [address] [place] [address] [phone] * (ABNORMAL) Urinalysis, Complete, with Reflex to Culture (07/20/2025 10:15 AM EDT) Color Urine Yellow [facility] Appearance Urine Turbid [facility] PH 5.5 5.0 - 9.0 [facility] Glucose Urine UA Negative Negative mg/dL [facility] Urine Blood Trace(A) Negative [facility] Specific [place]my[place] - Urine 1.025 1.005 - 1.025 [facility] Urine Protein Negative Neg-Trace mg/dL [facility] Urine Ketones Negative Negative mg/dL [facility] Nitrite Urine Negative Negative [facility] Leukocyte Esterase Urine Negative Negative [facility] RBC Urine 0-2 0 - 2 /HPF [facility] Urine WBC 0-5 0 - 5 /HPF [facility] Urine Squamous Epithelial Cell 11-20 0 - 2 /HPF [facility] Urine Bacteria Trace None Seen [facility] Hyaline Casts, Urine 0-2 0 - 2 /LPF [facility] 07/20/2025 10:1 5 AM EDT 07/20/2025 11:23 AM EDT Narrative [facility] - 07/20/2025 11:44 AM EDT Urine, Clean Catch us Cindy Pacheco MD LAB URINE ORDERABLES Final Re sult [facility] [address] [place] [phone] * Bacterial Vaginosis Panel (07/16/2025 2:50 PM EDT) TRICHOMONAS VAGINALIS DETECTION BY PCR NOT DETECTED Not Detect [facility] BACTERIAL VAGINOSIS DETECTION BY PCR NEGATIVE Negative [facility] Comment:The BV organism targ ets of [...] DETECTION BY PCR NOT DETECTED Not Detect [facility] Suzi glab krusei PCR NOT DETECTED Not Detect [facility] Swab Vaginal structure / Unknown 07/16/2025 2:50 PM EDT 07/16/2025 4:28 PM EDT Cindy Pacheco MD LAB MICROBIOLOGY - GENERAL OR DERABLES Final Result [facility] [address] [place] [address] [phone] * Chlamydia/N. Gonorrhoeae RNA, TMA, Vaginal (07/16/2025 2:50 PM EDT) CT PCR NOT DETECTED Not Detect. [facility] Comment:A not detected test result does [...] psychologicalconsequences. NG PCR NOT DETECTED Not Detect. [facility] Comment:A not detected test result does [...] OR DERABLES Final Result Performing Organization Address City/[facility]/ZIP Co de Phone Number [facility] [address] [place] [phone] * Culture, Urine, Routine (07/16/2025 2:50 PM EDT) Urine Urine specimen obtained by clean catch procedure / Unknown 07/16/2025 2:50 PM EDT 07/16/2025 4:02 PM EDT Comment:UACC Narrative [facility] - 07/18/2025 10:37 AM EDT Lactobacillus species Quant > 100,000 cfu/mL Susc N/A Susceptibility not routinely performed on this isolate. Specimen Source: Urine clean catch us Cindy Pacheco MD LAB MICROBIOLOGY - GENERAL OR DERABLES Final Result Performing Organization Address [facility]/ZIP Co de Phone Number [facility] [address] [place] [phone] * (ABNORMAL) POCT Urinalysis (07/16/2025 2:17 [...] Appearance, UA CLEAR QC Media Lot # [id number] Lot# Expiration Date [id number] Urine 07/16/2025 2:17 PM EDT Cindy Pacheco MD POINT OF CARE TEST ENTER/EDIT ORDERABLES Final Result * BI Mammogram Screening Tomosynthesis Bilateral (07/10/2025 8:15 AM EDT) Anatomical Region Laterality Modality Breast Bilateral Mammography 07/10/2025 8:15 AM EDT Narrative 07/13/2025 10:52 AM EDT [facility] [address] [place] [address] Mammography Report Signed Patient: Hailey Bunch MR#: M [id number] : 1980 Acct:[id number] Age/Sex: 45 / F ADM Date: 07/10/25 Loc: KARI Attending Dr: Yanira VALDEZ Ordering Physician: Yanira Melissa Results: 1Negat león Date of Service: 07/10/25 Follow Up: 1 Year From [facility] Mammogram Procedure(s): MM tomosynthesis screening BI Accession Number(s): [id number] cc: Yanira Melissa Reason For Exam: Routine [...] 07/13/25 1049 DD/ 0815 TD/TT: 07/10/25 0826 [employer] Country [employer] Track [employer] Field Coach: Procedure Note Donotuseinterpreter, Image - 07/13/[facility] [address] [place], [place] [address] Mammography Report Signed Patient: Hailey BunchMR#: M [id number] : 1980Acct:[id number] Age/Sex: 45 / FADM Date: 07/10/25 Loc: KARI Attending Dr: Yanira VALDEZ Ordering Physician: Yanira Melissa FNPResults: 1Negat león Date of Service: 07/10/25Follow Up: 1 Year From Orig inal Mammogram Procedure(s): MM tomosynthesis screening BI Accession Number(s): [id number] cc: Yanira Melissa Reason For Exam: Routine [...] 07/13/25 1049 DD/ 0815 TD/TT: 07/10/25 0826 Cross Country [employer] Track [employer] Field Coach: Yaniramahendra Melissa [employer] IMG BI PROCEDURES Final Result * HPV DNA, Low/High Risk (04/28/2025 9:47 AM EDT) HPV High Risk Negative Negative [facility] HPV Genotype 16 Negative Negative [facility] HPV Genotype 18 Negative Negative [facility] Comment:HPV testing performe d at [facility] (CLIA#[id number]), [address] [place] [address].Testing for HPV was performed using the Toney [...] EDT 04/29/2025 8:00 AM EDT Aisha Rodriguez [facility] BLOOD ORDERABLES Christa l Result [facility] [address] [place] [phone] * Pap Smear (04/28/2025 9:47 AM EDT) Swab Cervix uteri structure / Unknown 04/28/2025 9:47 AM EDT 04/29/2025 8:00 AM EDT [facility] - 04/30/2025 3:19 PM EDT ----- ------- Name: Hailey Bunch Age/Sex: 44/F : 1980 Unit#: [id number] Attend Dr: Aisha Rodriguez Re04/28/25 Status: [facility] Location: .HHCLNP Disch: ----- ------- SPEC : [id number] RECD: 04/29/25 STATUS: DULCE FITZGERALD NUM: [id number] MARSHALL: 04/28/[address] [facility] [address]: Aisha Rodriguez ENTERED: 04/29/25 SP TYPE: Pap Smr OT DR: ORDERED: Pap Smear Interpretation Satisfactory for [...] and HPV testing will be performed at [facility] (CLIA #[id number]), [address] [place] [address]. Testing for HPV was performed using the [...] detected. All professional services are performed by [facility] ([address] [place] [address]; ; CLIA #[id number]). The PAP Test is a screening procedure with the inherent possibility of both false negative and false positive results. Results should be interpreted in the context of historic and current clinical findings. Reliability of the PAP Test is enhanced by performing the test on a regular repetitive basis. ----- ------- Signed (signature on file) ZULAY Roman (ASCP) 04/30/25 1519 ----- ------- END OF REPORT Aisha [facility] LAB CYTOLOGY ORDERABLES F inal Result [facility] [address] [place] [phone] * Hepatitis C Antibody with Reflex to HCV, RNA, Quantitative, Real-Time PCR (03/17/2025 3:48 PM EDT) Pathologist [facility] Hepatitis C Antibody Nonreactive Nonreactive [facility] Comment:Antibodies to HCV no t detected; does not exclude early acuteHCV infection. Blood Venous blood specimen / Unknown 03/17/2025 3:48 PM EDT 03/17/2025 4:[address] [facility] BLOOD ORDERABLES Final Res ult Performing Organization Address [facility] Co de Phone Number [facility] [address] [place] [phone] * HIV-1/2 Antigen and Antibodies, Fourth Generation, with Reflexes (03/17/2025 3:48 PM EDT) [facility] HIV AB/AG Nonreactive Nonreactive [facility] Comment:HIV-1 p24 Ag and/or HIV-1/HIV-2 Ab not detected.A test result that is nonreactive does not exclude thepossibility of exposure to or infection with HIV-1 and/orHIV-2. Nonreactive results in this assay for individualswith prior exposure to HIV-1 and/or HIV-2 may be due toantigen and antibody levels that are below the limit ofdetection of this assay.The [employer] HIV Ag/Ab Combo assay result andsupplemental assay results should be interpreted inconjunction with the patient's clinical presentation,history and other laboratory results. If the results areinconsistent with clinical evidence, additional testing issuggested to confirm the result. Blood Venous blood specimen / Unknown 03/17/2025 3:48 PM EDT 03/17/2025 4:12 [address] [facility] BLOOD ORDERABLES Final Res ult Performing Organization Address [facility] Co de Phone Number [facility] [address] [place] [phone] from Last 3 Months or Most Recently Relevant to Health Maintenance [place] Care Teams Brush Cutter Relationship Specialty Start Date End Date Yanira Melissa FNP [address] [place] [address] PCP - General Family Medicine 03/17/25
--- OUTSIDE RECORDS SUMMARY | 2025-10-04 20:03 | XMS_ITS | Encounter Summary ---
Author Organization [employer] [facility] Address [address] [facility] [address] 7[address] [place] [address] Care Team Providers Care Oil Burner Installer Name Role Phone Yanira Melissa [facility] Primary Care Provider [phone] Reason for Visit * Reason Onset Date Comments Medication 02/03/2025 Encounter Details Date Type Department Care Team (Late Contact Info) Description 02/03/2025 Telephone [facility] ADULT DENTAL [address] [place], [place] [phone] Tavia Mullins DDS [address], [place] [phone] Medication Social History Tobacco Use Types Packs/Day [...] Department Care Team (Late Contact Info) Description 10/05/2025 1:30 PM EST Nurse Only [facility] MEDIC[facility] [address], [place] [phone] 12/20/2025 9:00 AM EST Office Visit [facility] [address] [place] [address] Yanira Melissa FNP [address] [place] [address] 01/31/2026 8:45 AM EDT Office Visit [facility] ADULT DENTAL [address], [place] [phone] Maritza Givens documented as of this encounter Visit Diagnoses Not on filedocumented in this encounter Care Teams Oil Burner Installer Relationship Specialty Start Date End Date Yanira Melissa FNP [address] [place] [address] PCP - General Family Medicine 03/17/25 documented as of this encounter
--- OUTSIDE RECORDS SUMMARY | 2025-10-04 20:03 | XMS_ITS | Encounter Summary ---
Author Organization [employer] Address [address] [facility] [address] [place] [address] Care Team Providers Care Fence Rider Name Role Phone Yanira Melissa [facility] Primary Care Provider [phone] Reason for Visit * Reason Onset Date Comments December Recall 09/30/2025 Encounter Details Date Type Department Care Team (Late st Contact Info) Description 09/30/2025 Telephone [facility] [address] [place] [address] Yanira Melissa FNP [address] [place] [address] December Social History Tobacco Use Types Packs/Day Years [...] encounter Miscellaneous Notes * Telephone Encounter - Concetta Pires [place] - 09/30/2025 1:19 PM EST Telephone call to patient to schedule the following recall: Visit type: Office visit Appointment notes: Follow up in about 3 months (around 12/20/2025) for follow up with Mo for migraine. Patient agree to appointment on 12/20/2025 at 9:00 AM with Belén. documented in this encounter Plan of Treatment Upcoming Encounters Date Type Department Care Team (Late st Contact Info) Description 10/05/2025 1:30 PM EST Nurse Only [facility] [address] [place] [address] 12/20/2025 9:00 AM EST Office Visit [facility] [address] [place] [address] Yanira Melissa FNP [address] [place] [address] 01/31/2026 8:45 AM EDT Office Visit [facility] [address] [place] [address] Maritza Givens documented as of this encounter Visit Diagnoses Not on filedocumented in this encounter Additional Health Concerns Assessment Noted Time PHQ-9 Depression Total Score: 4 04/28/20 25 9:30 AM EDT documented as of this encounter Care Teams Fence Rider Relationship Specialty Start Date End Date Yanira Melissa FNP [address] [place] [address] PCP - General Family Medicine 03/17/25 documented as of this encounter
--- OUTSIDE RECORDS SUMMARY | 2025-10-04 20:03 | XMS_ITS | Encounter Summary ---
Author Organization [employer] Address [address] [facility] [address] [place] [address] Care Team Providers Care Spa Associate Name Role Phone Yanira Melissa [employer] Primary Care Provider [phone] Reason for Visit * Reason Onset Date Comments referral 01/05/2025 Encounter Details Date Type Department Care Team (Late st Contact Info) Description 01/05/2025 Telephone [facility] [address] [place] [address] Tavia Mullins DDS [address] [place] [address] referral Social History Tobacco Use Types Packs/Day [...] is trying to get an appt at [facility] for RCT. They need a referral sent to their office at [email or web address] documented in this encounter Plan of Treatment Upcoming Encounters Date Type Department Care Team (Late st Contact Info) Description 10/05/2025 1:30 PM EST Nurse Only [facility] [address] [place] [address] 12/20/2025 9:00 AM EST Office Visit [facility] [address] [place] [address] Yanira Melissa FNP [address] [place] [address] 01/31/2026 8:45 AM EDT Office Visit [facility] [address] [place] [address] Maritza Givens documented as of this encounter Visit Diagnoses Not on filedocumented in this encounter Care Teams Spa Associate Relationship Specialty Start Date End Date Yanira Melissa FNP [address] [place] [address] PCP - General Family Medicine 03/17/25 documented as of this encounter
[2025-10-05 04:38] LABS: Syphilis Screen Nonreactive (Nonreactive)
[2025-10-05 06:49] LABS: Rubeola IgG (Measles) 239.00 AU/mL
== END 2025-10-04 13:51 | disposition home or self-care (01) ==
LOC: HO.HHCL 13:50
PROVIDERS: PCP Nurse Practitioner Family; Referring Provider Internal Medicine Infectious Disease; Visit Provider Nurse Practitioner Family
DX: Z00.00 Encounter for general adult medical examination without abnormal findings (principal); Z11.3 Encounter for screening for infections with a predominantly sexual mode of transmission; Z11.1 Encounter for screening for respiratory tuberculosis; Z01.84 Encounter for antibody response examination
CPT/HCPCS: 36415; 86481; 86735; 86762; 86765; 86780; 86787